=== PATIENT | female | born 1985 | race Caucasian/White ===

== ENCOUNTER 2020-07-10 20:23 | Emergency (ER) | payer BC, SELFPAY ==
--- NOTE | ~2020-07-10 | XR_ITS ---
XR hand LT min 3V, XR wrist LT min 3V 07/10/2020 21:25 (accession [id number]), 07/10/2020 21:23 (accession [id number]) INDICATION: Left wrist and hand pain PROCEDURE: 3 views left hand and 4 views left wrist COMPARISON: No prior studies for comparison. FINDINGS: Fracture, dislocation or subluxation is not identified. The soft tissues appear within norm al limits. No foreign bodies are identified. IMPRESSION: 1: NO ACUTE BONE OR JOINT ABNORMALITY IDENTIFIED. Reviewed, dictated and finalized at location A. IMPRESSION: 1: NO ACUTE BONE OR JOINT ABNORMALITY IDENTIFIED.
--- NOTE | ~2020-07-10 | XR_ITS ---
XR ankle LT min 3V, XR foot LT min 3V 07/10/2020 21:23 (accession [id number]), 07/10/2020 21:25 (accession [id number]) INDICATION: Left ankle and foot pain with swelling PROCEDURE: 4 views left ankle 4 views left foot COMPARISON: No prior studies for comparison. FINDINGS: Fracture, dislocation or subluxation is not identified. Prominent degenerative calcaneal en thesophyte. Ankle mortise is intact. Normal mineralization. The soft tissues appear within normal tadeo its. No foreign bodies are identified. IMPRESSION: 1: NO ACUTE BONE OR JOINT ABNORMALITY IDENTIFIED. Reviewed, dictated and finalized at location A. IMPRESSION: 1: NO ACUTE BONE OR JOINT ABNORMALITY IDENTIFIED.
[2020-07-10 20:35] VITALS: BP 124/74; PULSE 100; RESP 16; TEMP 36.9; O2SAT 100
[2020-07-10] MEDS: methylPREDNISolone ACETATE 40 MG/ML VIAL 80 MG IM (21:01)
--- NOTE | 2020-07-10 21:17 | ED.EXTPRO ---
HPI - Extremity Problem General Chief complaint: Extremity Problem,Nontraumatic Stated complaint: hand and foot pain on L side History of Present Illness HPI Narrative: This is a 34-year-old female presents with some left wrist and left ankle and foot pain with no known injuries. The wrist is mildly swollen and is having some pain that is radiating down into her hand and fingers, and into her thumb with some numbness and tingling in the thumb and her 1st 2 fingers. Has a strong brisk radial pulse on the left again no known injuries with mild swelling and pain level about a 5/10. Has a history of a gastric sleeve and has not been able to tolerate NSAIDs. Patient also complains of left foot and ankle pain with no known injury has good range of no motion with no swelling has a good brisk pedal pulse with no numbness or tingling. MD Complaint: extremity pain and extremity swelling Onset (ago): day(s) Pain Consistency: intermittent Location: left Severity scale (1-10): 5 Quality: burning Radiation: none Relieving factors: immobilization Exacerbating factors: range of motion Associated symptoms: denies other symptoms Related Data Home Medications Medication Instructions Recorded Confirmed buspirone 10 mg PO DAILY 07/10/20 07/10/20 escitalopram oxalate 20 mg PO DAILY 07/10/20 07/10/20 metformin 500 mg PO BID 07/10/20 07/10/20 omeprazole 20 mg PO DAILY 07/10/20 07/10/20 trazodone 100 mg PO HS 07/10/20 07/10/20 Allergies Allergy/AdvReac Type Severity Reaction Status Date / Time fluconazole [From Diflucan] Allergy Hives Verified 07/10/20 21:10 hydrocodone Allergy Hives Verified 07/10/20 21:10 sertraline [From Zoloft] Allergy Hives Verified 07/10/20 21:10 tuberculin, purified protein Allergy Hives Verified 07/10/20 21:10 deriva Review of Systems Review of Systems: All systems reviewed & are unremarkable except as noted in HPI and below PMFSH Past Medical History Medical History (Updated 07/10/20 @ 21:37 by Denis Daniels MD) Depression Diabetes mellitus Patient denies medical problems Exam Const: General: no acute distress and alert Orientation/consciousness: patient oriented x3 HENMT: Head: normal to inspection Eyes: Conjunctivae: conjunctivae normal Pupils: Equal, round and reactive pupils present Neck: Neck: normal visual inspection, no lymphadenopathy and no meningeal signs Chest: Chest palpation & inspection: normal inspection of the chest Resp: Effort & Inspection: normal respiratory effort Auscultation: clear to auscultation bilaterally Cardio: Rate: regular rate Rhythm: regular rhythm GI: GI Palp: Yes Soft to palpation Skin: General skin exam: normal color Rashes: no rashes Neuro: General: patient oriented x3, moves all extremities and no meningeal signs Extrem: Other: positive Phalen test on the left along with positive to tinnel test the left wrist. Psych: Appearance: grossly normal Mental Status: mental status grossly normal Course Course Emergency Course: Reassessment of patient after receiving a IM steroid injection pain mildly improved, according to patient she is unable to take NSAIDs secondary to status post gastric sleeve. Vital Signs Vital signs: Vital Signs Temperature 36.9 C 07/10/20 20:35 Pulse Rate 100 07/10/20 20:35 Respiratory Rate 16 07/10/20 20:35 Blood Pressure 124/74 07/10/20 20:35 Pulse Oximetry 100 07/10/20 20:35 Temperature 36.9 C 07/10/20 20:35 Pulse Rate 100 07/10/20 20:35 Respiratory Rate 16 07/10/20 20:35 Blood Pressure 124/74 07/10/20 20:35 Pulse Oximetry 100 07/10/20 20:35 Critical Care Time Critical Care Time Critical Care Time: No Discharge Plan Discharge Clinical Impression: Acute carpal tunnel syndrome of left wrist Left ankle sprain Qualifiers: Encounter type: initial encounter Involved ligament of ankle: unspecified ligament Qualified Code(s): S93.402A - Sprain of unspecified ligame
[2020-07-10 21:43] VITALS: RESP 16
== END 2020-07-10 21:45 | disposition home or self-care (01) ==
PROVIDERS: Emergency Provider Emergency Medicine
DX: G56.02 Carpal tunnel syndrome, left upper limb (principal); S93.402A Sprain of unspecified ligament of left ankle, initial encounter
CPT/HCPCS: 73110; 73130; 73610; 73630; 96372; 99283; 99284; J1030

== ENCOUNTER 2021-02-11 20:31 | Emergency (ER) | payer BC, SELFPAY ==
--- NOTE | 2021-02-11 20:48 | ED.ARRPALP ---
HPI - Arrhythmia/Palpitations General Chief Complaint: Arrhythmia/Palpitations Stated Complaint: surgery on 1st-heart racing,nausea Time Seen by Provider: 02/11/21 20:49 Source: patient Mode of arrival: ambulatory Limitations: no limitations History of Present Illness HPI narrative: 35-year-old woman 1 month status post gastric bypass comes in today complaining nausea and rapid heart rate while eating and lightheadedness while standing for last 2 days. Patient states she has also 2 or 3 episodes of watery stools. She denies black stools or blood in her stools, vomiting, fever, sweats, syncope, chest pain or abdominal pain. MD complaint: heart racing Onset (ago): day(s) (2) Duration: intermittent Severity: severe Associated symptoms: nausea Related Data Home Medications Medication Instructions Recorded Confirmed escitalopram oxalate 20 mg PO DAILY 07/10/20 02/11/21 trazodone 100 mg PO HS 07/10/20 02/11/21 bupropion HCl 150 mg PO DAILY 02/11/21 02/11/21 famotidine 20 mg PO DAILY 02/11/21 02/11/21 ropinirole 1 mg PO DAILY 02/11/21 02/11/21 Allergies Allergy/AdvReac Type Severity Reaction Status Date / Time fluconazole [From Diflucan] Allergy Hives Verified 02/11/21 21:24 hydrocodone Allergy Hives Verified 02/11/21 21:24 sertraline [From Zoloft] Allergy Hives Verified 02/11/21 21:24 tuberculin, purified protein Allergy Hives Verified 02/11/21 21:24 deriva Review of Systems Constitutional: Constitutional: Denies chills, Denies fever(s) and Denies weakness Eyes: Eyes: Denies change in vision and Denies photophobia ENT: Denies dysphagia, Denies nasal congestion and Denies sore throat Cardiovascular: Cardiovascular: Denies chest pain and Denies radiating jaw, neck or arm pain Respiratory: Respiratory: Denies cough and Denies dyspnea Gastrointestinal: Gastrointestinal: Denies abdominal pain, Denies diarrhea, Reports nausea and Denies vomiting Genitourinary: Genitourinary: Denies nocturia and Denies dysuria Musculoskeletal: Musculoskeletal: Denies arthralgias and Denies joint swelling Integumentary/Breasts: Skin/Breast: Denies pruritus, Denies erythema and Denies rash Neurologic: Denies vertigo, Reports dizziness, Denies syncope, Denies focal weakness and Denies numbness Hematologic/Lymphatic: Hematologic/Lymphatic: Denies easy bleeding and Denies easy bruising Allergic/Immunologic: Allergic/Immunologic: Denies lip swelling and Denies throat swelling [facility] Past Medical History Medical History (Updated 02/11/21 @ 23:28 by Chino Golden MD) Depression Diabetes mellitus Patient denies medical problems Surgical History Surgical History (Updated 02/11/21 @ 21:01 by Chino Golden MD) Gastric bypass status for obesity January 12, 2021 Social History Social History (Updated 02/11/21 @ 21:01 by Chino Golden MD) Smoking status: Never smoker Substance use: never Living arrangements: with family Gender identity (if verbalized by the patient): Female Exam Const: General: alert Nutritional Appearance: obese Orientation/consciousness: patient oriented x3 Limitations: no limitations Other: [id number] acute distress. HENMT: Head: normal to inspection Ears: external ears normal, TM's normal bilaterally and EAC's normal General nose exam: Normal nares present Mouth: Yes moist mucous membranes Throat: posterior oropharynx normal Eyes: Conjunctivae: conjunctivae normal Pupils: Equal, round and reactive pupils present EOM: EOMs intact bilaterally Resp: Effort & Inspection: normal respiratory effort and not labored Auscultation: clear to auscultation bilaterally, no rales, no rhonchi and no wheezes Cardio: Rate: tachycardic Rhythm: regular rhythm Heart sounds: no murmurs GI: GI Palp: Yes Soft to palpation, Yes Tenderness to palpation present (GI) ( Mild diffuse) and No Guarding due to palpation present (GI) Auscultation: normal bowel sounds Urinary Catheter:
[2021-02-11 20:50] VITALS: BP 118/86; PULSE 113; RESP 20; TEMP 36.5; O2SAT 100
--- NOTE | 2021-02-11 20:54 | ECG_ITS ---
Measurements Intervals [place] Rate: 85 P: 34 [place]: 168 QRS: 9 QRSD: 86 T: 6 QT: 356 QTc: 425 Interpretive Statements SINUS RHYTHM BORDERLINE T WAVE ABNORMALITY- ANT/INF LEADS BORDERLINE ECG Electronically Signed On 02-12-2021 7:20:44 CDT by Brendan Stapleton D.O.
[2021-02-11 21:13] VITALS: BP 108/74; PULSE 88
[2021-02-11 21:14] VITALS: BP 114/82; PULSE 111
[2021-02-11 21:14] LABS: Add Urine Microscopic? YES; Appearance Urine Clear (Clear); Basophils Absolute Auto 0.07 K/mm3 (0.00-0.10); Basophils Percent Auto 1.2 % (0.0-1.0); Bilirubin Urine Negative (Negative); Blood Urine Negative (Negative); Color Urine Yellow (Yellow); Eosinophils Absolute Auto 0.13 K/mm3 (0.02-0.50); Eosinophils Percent Auto 2.2 % (1.0-6.0); Glucose Urine UA Negative (Negative); Hematocrit 35.3 % (35.0-49.0); Hemoglobin 11.2 g/dL (12.0-15.0); Immature Granulocyte Absolute 0.02 K/mm3 (0.00-0.00); Immature Granulocyte Percent A 0.3 % (0.0-0.0); Ketones Urine 1+ (Negative); Leukocyte Esterase Ur Negative (Negative); Lymphocytes Absolute Auto 2.66 K/mm3 (1.10-4.50); Mean Corpuscular HGB Conc 31.7 g/dL (32.0-36.0); Mean Corpuscular Volume 91.5 fL (78.0-102.0); Mean Platelet Volume 11.1 fl (9.2-11.8); Monocytes Absolute Auto 0.63 K/mm3 (0.10-0.90); Monocytes Percent Auto 10.4 % (2.0-11.0); Neutrophils Absolute Auto 2.5 K/mm3 (1.7-7.2); Neutrophils Percent Auto 41.9 % (50.0-70.0); Nitrate Urine Negative (Negative); Platelet Count Result 238 K/mm3 (150-420); Protein Urine Negative (Negative); Red Blood Count 3.86 M/mm3 (4.20-5.40); Red Cell Distribution Width 15.7 % (11.6-14.4); Specific Grav Ur 1.025 (1.010-1.020); pH Urine 6.5 (5.0-8.0)
[2021-02-11] MEDS: SODIUM CHLORIDE 0.9% IV 1,000 ML 999 ML IV CONT (21:15)
[2021-02-11 21:16] VITALS: PULSE 112
[2021-02-11 21:21] LABS: RBC Urine 0-2 /hpf (0-2); Squamous Epithelial Cell Urine Many /hpf (Few); WBC Urine 0-3 /hpf (0-3)
[2021-02-11 21:22] LABS: Bacteria Urine Trace /hpf; Mucus Urine Few /lpf
[2021-02-11 21:33] LABS: Alanine Aminotransferase 49 U/L (14-59); Albumin Level 3.2 g/dL (3.4-5.0); Alkaline Phosphatase 89 U/L (46-116); Anion Gap 8 mmol/L (8-16); Aspartate Amino Transferase 40 U/L (15-37); Bilirubin,Total 0.3 mg/dL (0.00-1.00); Blood Urea Nitrogen 11 mg/dL (7-18); Calcium 8.3 mg/dL (8.5-10.1); Carbon Dioxide 29 mmol/L (21-32); Chloride 105 mmol/L (98-108); Estimated CRCL calculation 98 ml/min; Estimated Glomerular Filt Rate > 60; Glucose 118 mg/dL (70-99); Lipase 316 U/L (73-393); Magnesium 1.8 mg/dL (1.8-2.4); Osmolality Calculated 294 mOsm/kg (285-295); Phosphorus 2.3 mg/dL (2.6-4.7); Potassium 3.1 mmol/L (3.5-5.1); Sodium 142 mmol/L (136-145)
[2021-02-11] MEDS: THIAMINE HCL INJ 100 MG, FOLIC ACID INJ 1 MG, MULTIVITAMINS-12 INJ VIAL 1 5 ML, MULTIVI... 500 MG IV CONT (22:30)
[2021-02-11] MEDS: ONDANSETRON INJ 4 MG/2 ML VIAL IV PUSH (22:34)
[2021-02-11 22:36] VITALS: BP 98/65; PULSE 65; RESP 20; O2SAT 100
[2021-02-11] MEDS: POTASSIUM CHLORIDE 20 MEQ TABLET PO (23:59)
[2021-02-12 00:04] VITALS: BP 99/71; PULSE 73; RESP 20; TEMP 36.7; O2SAT 100
== END 2021-02-12 00:16 | disposition home or self-care (01) ==
PROVIDERS: Emergency Provider Emergency Medicine; PCP Family Medicine
DX: E87.6 Hypokalemia (principal); R00.0 Tachycardia, unspecified; E86.0 Dehydration
CPT/HCPCS: 36415; 80053; 81001; 83690; 83735; 84100; 85025; 93005; 96361; 96365; 96366; 96375; 99283; 99284; A9270; J2405; J3411; J3475; J7030; J7121

== ENCOUNTER 2022-01-27 15:55 | Emergency (ER) | payer BC, SELFPAY ==
[2022-01-27 16:00] VITALS: BP 110/73; PULSE 79; RESP 16; TEMP 36.2; O2SAT 99
--- NOTE | 2022-01-27 16:19 | ED.UPPEXIN ---
HPI - Extremity Injury (Upper) General Chief Complaint: Extremity Injury, Upper Stated Complaint: bites, swelling, hot to touch Time Seen by Provider: 01/27/22 16:29 Source: patient Mode of arrival: ambulatory History of Present Illness HPI narrative: 36-year-old female with seasonal allergies presents to the ER with -- bilateral elbow skin rash which is erythematous/ swollen/painful. intermittent itching. Does not recollect having had a bite. Came on in the past few hours. No rash elsewhere. Nose throat swelling/ tongue swelling, shortness of breath, abdominal pain. MD complaint: injury to: left, right and elbow Other Extremity Injury: Right: elbow Other injuries: none Place: home Severity: moderate Exacerbating factors: none Associated symptoms: denies other symptoms Related Data Home Medications Medication Instructions Recorded Confirmed escitalopram oxalate 20 mg PO DAILY 07/10/20 02/11/21 trazodone 100 mg PO HS 07/10/20 02/11/21 bupropion HCl 150 mg PO DAILY 02/11/21 02/11/21 famotidine 20 mg PO DAILY 02/11/21 02/11/21 ropinirole 1 mg PO DAILY 02/11/21 02/11/21 Allergies Allergy/AdvReac Type Severity Reaction Status Date / Time fluconazole [From Diflucan] Allergy Hives Verified 01/27/22 16:08 hydrocodone Allergy Hives Verified 01/27/22 16:08 sertraline [From Zoloft] Allergy Hives Verified 01/27/22 16:08 tuberculin, purified protein Allergy Hives Verified 01/27/22 16:08 deriva Review of Systems Review of Systems: All systems reviewed & are unremarkable except as noted in HPI and below Constitutional: Constitutional: Reports as per HPI and Reports no additional constitutional complaints Eyes: Eyes: Reports as per HPI and Reports no additional eye complaints ENT: Reports system reviewed and no additional complaints, except as documented Cardiovascular: Cardiovascular: Reports as per HPI and Reports no additional cardiovascular complaints Respiratory: Respiratory: Reports as per HPI and Reports no additional respiratory complaints Gastrointestinal: Gastrointestinal: Reports as per HPI and Reports no additional gastrointestinal complaints Genitourinary: Genitourinary: Reports no additional female genitourinary complaints and Reports as per HPI Musculoskeletal: Musculoskeletal: Reports no additional musculoskeletal complaints and Reports as per HPI Integumentary/Breasts: Comments: Bilateral elbow skin rash with itching Neurologic: Reports system reviewed and no additional complaints, except as documented and Reports as per HPI Psychiatric: Psychiatric: Reports no additional psychiatric complaints and Reports as per HPI Endocrine: Endocrine: Reports no additional endocrine complaints and Reports as per HPI Hematologic/Lymphatic: Hematologic/Lymphatic: Reports no additional hematologic/lymphatic complaints and Reports as per HPI Allergic/Immunologic: Allergic/Immunologic: Reports no additional allergic/immunologic complaints and Reports as per HPI [facility] Past Medical History Medical History Depression Diabetes mellitus Patient denies medical problems Surgical History Surgical History Gastric bypass status for obesity January 12, 2021 Social History Social History Smoking status: Never smoker Substance use: never Gender identity (if verbalized by the patient): Female Exam Const: General: no acute distress and alert Orientation/consciousness: patient oriented x3 HENMT: Head: normal to inspection Eyes: Conjunctivae: conjunctivae normal Pupils: Equal, round and reactive pupils present Neck: Neck: normal visual inspection and no lymphadenopathy Chest: Chest palpation & inspection: normal inspection of the chest Resp: Effort & Inspection: normal respiratory effort Auscultation: clear to auscultation bilat
[2022-01-27] MEDS: methylPREDNISolone SOD SUCC 125 MG VIAL IM (16:36)
[2022-01-27] MEDS: diphenhydrAMINE HCl CAP 25 MG CAPSULE PO (16:36)
[2022-01-27 17:22] VITALS: BP 108/59; PULSE 67; RESP 16; TEMP 36.7; O2SAT 99
--- NOTE | 2022-01-27 17:24 | ED_ITS ---
HPI - Extremity Injury (Upper) General Chief Complaint: Extremity Injury, Upper Stated Complaint: bites, swelling, hot to touch Time Seen by Provider: 01/27/22 16:29 Source: patient Mode of arrival: ambulatory History of Present Illness Place: home Exacerbating factors: none Associated symptoms: denies other symptoms Related Data Home Medications Medication Instructions Recorded Confirmed escitalopram oxalate 20 mg PO DAILY 07/10/20 02/11/21 trazodone 100 mg PO HS 07/10/20 02/11/21 bupropion HCl 150 mg PO DAILY 02/11/21 02/11/21 famotidine 20 mg PO DAILY 02/11/21 02/11/21 ropinirole 1 mg PO DAILY 02/11/21 02/11/21 Allergies Allergy/AdvReac Type Severity Reaction Status Date / Time fluconazole [From Diflucan] Allergy Hives Verified 01/27/22 16:08 hydrocodone Allergy Hives Verified 01/27/22 16:08 sertraline [From Zoloft] Allergy Hives Verified 01/27/22 16:08 tuberculin, purified protein Allergy Hives Verified 01/27/22 16:08 deriva [facility] Past Medical History Medical History Depression Diabetes mellitus Patient denies medical problems Surgical History Surgical History Gastric bypass status for obesity January 12, 2021 Social History Social History Smoking status: Never smoker Substance use: never Gender identity (if verbalized by the patient): Female Course Vital Signs Vital signs: Vital Signs Temperature 36.2 C L 01/27/22 16:00 Pulse Rate 79 01/27/22 16:00 Respiratory Rate 16 01/27/22 16:00 Blood Pressure 110/73 01/27/22 16:00 Pulse Oximetry 99 01/27/22 16:00 Temperature 36.7 C 01/27/22 17:22 Pulse Rate 67 01/27/22 17:22 Respiratory Rate 16 01/27/22 17:22 Blood Pressure 108/59 L 01/27/22 17:22 Pulse Oximetry 99 01/27/22 17:22 Discharge Plan Discharge Clinical Impression: Contact dermatitis Qualifiers: Contact dermatitis type: unspecified Contact dermatitis trigger: unspecified trigger Qualified Code(s): L25.9 - Unspecified contact dermatitis, unspecified cause Patient Disposition: Home, Self-Care Condition: Stable Instructions: Antibiotic Form, Contact Dermatitis (ED) Patient Language: Turkmen Prescriptions: New methylprednisolone [Methylpred DP] 4 mg tablets,dose pack 4 mg PO DAILY Qty: 21 RF: 0 diphenhydramine HCl [Benadryl] 25 mg capsule 25 mg PO TID PRN (Reason: allergy symptoms) Qty: 10 RF: 0 No Action trazodone 50 mg tablet 100 mg PO HS RF: 0 escitalopram oxalate 20 mg tablet 20 mg PO DAILY RF: 0 ropinirole 1 mg tablet 1 mg PO DAILY RF: 0 famotidine 20 mg tablet 20 mg PO DAILY RF: 0 bupropion HCl 150 mg tablet extended release 24 hr 150 mg PO DAILY RF: 0 potassium chloride 20 mEq tablet extended release 20 meq PO DAILY Qty: 10 RF: 0 Follow-up/Referrals: Isidra,Judd Vincent MD [Primary Care Provider] - Time of Disposition: 16:43
== END 2022-01-27 17:25 | disposition home or self-care (01) ==
PROVIDERS: Emergency Provider Internal Medicine Critical Care Medicine; PCP Family Medicine
DX: L25.9 Unspecified contact dermatitis, unspecified cause (principal)
CPT/HCPCS: 96372; 99283; A9270; J2930

== ENCOUNTER 2022-05-25 19:59 | Emergency (ER) | payer BC, SELFPAY ==
[2022-05-25] VITALS (8 sets, daily range): BP systolic 93–142; BP diastolic 56–81; PULSE 84–102; RESP 14–23; TEMP 37.5; O2SAT 97–99
--- NOTE | ~2022-05-25 | XR_ITS ---
EXAMINATION: XR chest 1V portable 05/25/2022 21:02 INDICATION: Shortness of breath with weakness PROCEDURE: AP portable chest COMPARISON: No prior studies for comparison. FINDINGS: The lungs are clear. The cardiomediastinal silhouette is within normal limits. There are no pleural effusions. There is no pneumothorax suspected. IMPRESSION: 1: NO ACUTE CARDIOPULMONARY DISEASE. Reviewed, dictated and finalized at location A.
--- NOTE | 2022-05-25 20:42 | ECG_ITS ---
Measurements Intervals [place] Rate: 96 P: 4 [place]: 167 QRS: 3 QRSD: 89 T: 7 QT: 346 QTc: 438 Interpretive Statements SINUS RHYTHM BORDERLINE T WAVE ABNORMALITY- ANT/INF LEADS BORDERLINE ECG Electronically Signed On 05-25-2022 21:30:41 CDT by Brendan Stapleton D.O.
[2022-05-25 21:03] LABS: Hematocrit 36.9 % (35.0-49.0); Hemoglobin 12.1 g/dL (12.0-15.0); Mean Corpuscular HGB Conc 32.8 g/dL (32.0-36.0); Mean Corpuscular Hemoglobin 31.2 pg (27.0-31.0); Mean Corpuscular Volume 95.1 fL (78.0-102.0); Mean Platelet Volume 10.6 fl (9.2-11.8); Platelet Count Result 184 K/mm3 (150-420); Red Blood Count 3.88 M/mm3 (4.20-5.40); Red Cell Distribution Width 12.2 % (11.6-14.4); White Blood Count 3.5 K/mm3 (4.8-10.8)
[2022-05-25 21:07] LABS: Add Urine Microscopic? YES; Appearance Urine Slightly Cloudy (Clear); Bilirubin Urine Negative (Negative); Blood Urine Negative (Negative); Color Urine Yellow (Yellow); Glucose Urine UA Negative (Negative); Ketones Urine Negative (Negative); Leukocyte Esterase Ur 1+ LEU/UL (Negative); Nitrate Urine Negative (Negative); Protein Urine Negative (Negative); Specific Grav Ur 1.025 (1.010-1.020)
[2022-05-25] MEDS: NITROGLYCERIN SL 0.4 MG TABLET SUBLINGUAL (21:09)
[2022-05-25] MEDS: ASPIRIN 81 MG CHEWABLE TABLET 324 MG PO (21:10)
[2022-05-25 21:13] LABS: Amphetamine Screen Urine Negative (Negative); Barbiturate Screen Urine Negative (Negative); Benzodiazepines Screen Urine Negative (Negative); Cannabinoid Screen Urine Negative (Negative); Cocaine Screen Urine Negative (Negative); Methadone Screen Urine Negative (Negative); Opiate Screen Urine Negative (Negative); Phencyclidine Screen Urine Negative (Negative)
[2022-05-25 21:16] LABS: Amorphous Sediment Urine Few; Bacteria Urine 1+ /hpf; RBC Urine 0-2 /hpf (0-2); Squamous Epithelial Cell Urine Moderate /hpf (Few)
[2022-05-25 21:18] LABS: Partial Thromboplastin Time 27.3 SEC (23.90-30.70)
[2022-05-25 21:22] LABS: Lactic Acid Reflex 0.7 mmol/L (0.4-2.0)
[2022-05-25 21:24] LABS: Neutrophils Percent Manual 71 % (46-73); Total Cells Counted 100
[2022-05-25 21:25] LABS: Band Neutrophils Percent 0 % (0-6); Basophils Absolute Manual 0.03 K/mm3 (0-0.1); Basophils Percent Manual 1 % (0-1); Eosinophils Absolute Manual 0.07 K/mm3 (0.02-0.5); Eosinophils Percent Manual 2 % (1-6); Lymphocytes Absolute Manual 0.45 K/mm3 (1.1-4.5); Lymphocytes Percent Manual 13 % (18-44); Monocytes Absolute Manual 0.45 K/mm3 (0.1-0.90); Monocytes Percent Manual 13 % (3-9); Neutrophils Absolute Manual 2.48 K/mm3 (1.7-7.2); Platelet Estimate Adequate (Adequate)
[2022-05-25 21:31] LABS: Alanine Aminotransferase 50 U/L (14-59); Albumin Level 3.3 g/dL (3.4-5.0); Alkaline Phosphatase 100 U/L (46-116); Anion Gap 8 mmol/L (8-16); Aspartate Amino Transferase 37 U/L (15-37); Bilirubin,Total 0.3 mg/dL (0.00-1.00); Blood Urea Nitrogen 9 mg/dL (7-18); Calcium 8.4 mg/dL (8.5-10.1); Carbon Dioxide 24 mmol/L (21-32); Chloride 105 mmol/L (98-108); Estimated CRCL calculation 105 ml/min; Estimated Glomerular Filt Rate > 60; Glucose 90 mg/dL (70-99); NT Pro B Type Natriuretic Pept 57 pg/mL (0-125); Osmolality Calculated 282 mOsm/kg (285-295); Potassium 3.5 mmol/L (3.5-5.1); Sodium 137 mmol/L (136-145); Total Protein 6.3 g/dL (6.4-8.2)
[2022-05-25 21:32] LABS: Ethanol < 3 mg/dL (0-6); Troponin I < 4.0 ng/L (0.00-60.4)
--- NOTE | 2022-05-25 22:02 | PC.NURSE ---
pt states that she can not take NSAIDS due to her gastric bypass surgery
--- NOTE | 2022-05-25 22:12 | PC.NURSE ---
do not need to obtain ABGs labs per Md Aranda
--- NOTE | 2022-05-25 22:12 | ED.CHESTPAIN ---
HPI - Chest Pain General Chief Complaint: Chest Pain Stated Complaint: fever,headache,heart palpatations Time Seen by Provider: 05/25/22 20:03 Source: patient and RN notes reviewed Mode of arrival: ambulatory Limitations: no limitations History of Present Illness MD complaint: chest pain Onset (ago): day(s) (1) Timing of current episode: constant Onset: during rest Pain location: left chest Severity: mild Pain scale (0-10): 5 Quality: aching and dull Relieving factors: nothing Exacerbating factors: exertion Associated symptoms: palpitations Treatment prior to arrival: none Related Data Home Medications Medication Instructions Recorded Confirmed escitalopram oxalate 20 mg tablet 20 mg PO DAILY 07/10/20 05/25/22 trazodone 50 mg tablet 100 mg PO HS 07/10/20 05/25/22 bupropion HCl 150 mg 24 hr tablet, 150 mg PO DAILY 02/11/21 05/25/22 extended release ropinirole 1 mg tablet 1 mg PO DAILY 02/11/21 05/25/22 propranolol 10 mg tablet 1 tablet PO DAILY 05/25/22 05/25/22 Allergies Allergy/AdvReac Type Severity Reaction Status Date / Time fluconazole [From Diflucan] Allergy Hives Verified 05/25/22 20:30 hydrocodone Allergy Hives Verified 05/25/22 20:30 sertraline [From Zoloft] Allergy Hives Verified 05/25/22 20:30 tuberculin, purified protein Allergy Hives Verified 05/25/22 20:30 deriva iodine AdvReac Hives Verified 05/25/22 20:44 NSAIDS (Non-Steroidal AdvReac Other Verified 05/25/22 22:00 Anti-Inflamma Review of Systems Review of Systems: All systems reviewed & are unremarkable except as noted in HPI and below Constitutional: Constitutional: Reports no additional constitutional complaints Eyes: Eyes: Reports no additional eye complaints ENT: Reports system reviewed and no additional complaints, except as documented Cardiovascular: Cardiovascular: Reports chest pain Respiratory: Respiratory: Reports no additional respiratory complaints Gastrointestinal: Gastrointestinal: Reports no additional gastrointestinal complaints Genitourinary: Genitourinary: Reports no additional female genitourinary complaints Musculoskeletal: Musculoskeletal: Reports no additional musculoskeletal complaints Integumentary/Breasts: Skin/Breast: Reports system reviewed and no additional complaints, except as docu Neurologic: Reports system reviewed and no additional complaints, except as documented Psychiatric: Psychiatric: Reports no additional psychiatric complaints Endocrine: Endocrine: Reports no additional endocrine complaints Hematologic/Lymphatic: Hematologic/Lymphatic: Reports no additional hematologic/lymphatic complaints Allergic/Immunologic: Allergic/Immunologic: Reports no additional allergic/immunologic complaints PMFSH Past Medical History Medical History Atypical chest pain COVID-19 Depression Diabetes mellitus Patient denies medical problems Viral syndrome Surgical History Surgical History Gastric bypass status for obesity January 12, 2021 Social History Social History Smoking status: Never smoker Substance use: never Gender identity (if verbalized by the patient): Female Exam Const: General: healthy appearing and no acute distress Nutritional Appearance: well nourished Orientation/consciousness: patient oriented x3 Limitations: no limitations HENMT: Head: normal to inspection Ears: external ears normal, TM's normal bilaterally and EAC's normal General nose exam: Normal external nose present and Normal nares present Face and sinus: normal facial exam and sinuses nontender Mouth: Yes Normal oral and palatal mucosa present and Yes moist mucous membranes Teeth and gingiva: dentition normal Throat: posterior oropharynx normal Eyes: Conjunctivae: conjunctivae normal Pupils: Equal, round and reactive pupils present
[2022-05-25] MEDS: cefTRIAXone 1 GM, LIDOCAINE HCL 1% LOCAL INJ 2.1 ML IM (22:33)
[2022-05-25] MEDS: KETOROLAC (*BKC) 60 MG/2 ML VIAL IM (22:33)
[2022-05-25] MEDS: SODIUM CHLORIDE 0.9% IV 1,000 ML 999 ML IV CONT (23:15)
[2022-05-26 00:01] VITALS: BP 107/66; PULSE 98; RESP 16; O2SAT 97
[2022-05-26 00:31] VITALS: BP 103/61; PULSE 98; RESP 17; O2SAT 100
[2022-05-26 01:17] VITALS: BP 102/57; PULSE 103; RESP 18; TEMP 36.4; O2SAT 100
== END 2022-05-26 01:19 | disposition home or self-care (01) ==
PROVIDERS: Emergency Provider Emergency Medicine; PCP Family Medicine
DX: R07.89 Other chest pain (principal); U07.1 COVID-19; B34.9 Viral infection, unspecified
CPT/HCPCS: 36415; 71045; 80053; 80307; 81001; 83605; 83880; 84484; 85025; 85610; 85730; 87086; 87088; 93005; 96360; 96372; 99284; A9270; J0696; J1885; J7030

== ENCOUNTER 2022-10-11 13:22 | Emergency (ER) | payer OTHER, BC, SELFPAY ==
--- NOTE | ~2022-10-11 | US_ITS ---
EXAMINATION: US pelvic complete w TV DATE: 10/11/2022 15:26 INDICATION: Heavy bleeding. Cramping. Comparison:No prior studies for comparison. TECHNIQUE: Multiple transabdominal and endovaginal sonographic images of the pelvis performed. FINDINGS: The uterus measures 8.2 x 5.3 x 4.4 cm. The endometrial complex measures 6 mm. There are mu ltiple uterine fibroids. The right ovary measures 2.5 x 2.3 x 2 cm and the left ovary measures 2.2 x 1.3 x 2.4 cm. There are small follicles in each ovary. Normal doppler signal in both ovaries. There is no free fluid in the pelvis. There are no abnormal masses seen on either side. IMPRESSION: 1. Multiple uterine fibroids, largest measuring 2.4 cm. Reviewed, dictated and finalized at location A. [facility]
[2022-10-11 14:00] VITALS: BP 129/76; PULSE 63; RESP 16; TEMP 37.1; O2SAT 99
[2022-10-11 14:23] LABS: Glucose Point of Care 85 mg/dl (65-105)
--- NOTE | 2022-10-11 15:00 | PC.NURSE ---
PT IN ULTRASOUND AT THIS TIME
[2022-10-11 15:18] LABS: Partial Thromboplastin Time 27.4 SEC (23.90-30.70); Prothrombin Time 11.3 Seconds (9.50-12.10)
[2022-10-11 15:19] LABS: SPREG INTERNAL CONTROL Positive; Serum Qual hCG Negative
[2022-10-11 15:25] LABS: Lactic Acid Reflex 0.7 mmol/L (0.4-2.0)
[2022-10-11] MEDS: SODIUM CHLORIDE 0.9% IV 1,000 ML 999 ML IV CONT (15:30)
[2022-10-11] MEDS: ONDANSETRON INJ 4 MG/2 ML VIAL IV PUSH (15:34)
[2022-10-11] MEDS: MORPHINE SULFATE (*CRX) 2 MG/ML INJ IV PUSH (15:35)
[2022-10-11] MEDS: PANTOPRAZOLE SODIUM IV 40 MG VIAL IV PUSH (15:35)
--- NOTE | 2022-10-11 16:06 | PC.NURSE ---
PT REPORTS CHEST HEAVINESS AND PRESSURE INTO BACK, REPORTS SHE FELT THIS WAY THE LAST TIME SHE HAD MORPHINE. O2 PLACED ON PT AT 2L, SX PASS QUICKLY. NAD NOTED. LIGHTS ARE OFF REQUESTED. VSS PER MONITOR. WILL CONTINUE TO MONITOR.
[2022-10-11 16:07] VITALS: BP 122/84; PULSE 50; RESP 12; O2SAT 100
--- NOTE | 2022-10-11 16:42 | PC.NURSE ---
PT IS RESTING ON STRETCHER IN EXAM ROOM AT THIS TIME WITH LIGHTS OFF. NAD NOTED. PT IS AWAITING ERP DECISION. NAD NOTED. IVF COMPLETED WITHOUT DIFFICULTY. WILL CONTINUE TO MONITOR.
[2022-10-11 16:44] LABS: Basophils Absolute Auto 0.07 K/mm3 (0.00-0.10); Basophils Percent Auto 1.1 % (0.0-1.0); Eosinophils Absolute Auto 0.06 K/mm3 (0.02-0.50); Eosinophils Percent Auto 0.9 % (1.0-6.0); Hemoglobin 12.2 g/dL (12.0-15.0); Immature Granulocyte Absolute 0.02 K/mm3 (0.00-0.00); Immature Granulocyte Percent A 0.3 % (0.0-0.0); Lymphocytes Absolute Auto 2.86 K/mm3 (1.10-4.50); Mean Corpuscular Hemoglobin 31.3 pg (27.0-31.0); Mean Corpuscular Volume 94.9 fL (78.0-102.0); Mean Platelet Volume 11.1 fl (9.2-11.8); Monocytes Absolute Auto 0.42 K/mm3 (0.10-0.90); Monocytes Percent Auto 6.6 % (2.0-11.0); Neutrophils Absolute Auto 2.9 K/mm3 (1.7-7.2); Neutrophils Percent Auto 46.1 % (50.0-70.0); Platelet Count Result 240 K/mm3 (150-420); Red Cell Distribution Width 12.1 % (11.6-14.4); White Blood Count 6.4 K/mm3 (4.8-10.8)
[2022-10-11 16:54] LABS: Alanine Aminotransferase 27 U/L (14-59); Albumin Level 3.3 g/dL (3.4-5.0); Alkaline Phosphatase 82 U/L (46-116); Anion Gap 9 mmol/L (8-16); Aspartate Amino Transferase 14 U/L (15-37); Bilirubin,Total 0.2 mg/dL (0.00-1.00); Blood Urea Nitrogen 14 mg/dL (7-18); Calcium 8.5 mg/dL (8.5-10.1); Carbon Dioxide 25 mmol/L (21-32); Chloride 106 mmol/L (98-108); Estimated CRCL calculation 90 ml/min; Estimated Glomerular Filt Rate > 60; Glucose 99 mg/dL (70-99); Osmolality Calculated 290 mOsm/kg (285-295); Potassium 3.7 mmol/L (3.5-5.1); Sodium 140 mmol/L (136-145); Total Protein 6.3 g/dL (6.4-8.2)
[2022-10-11 17:07] VITALS: BP 116/66; PULSE 53; RESP 16; O2SAT 100
[2022-10-11 18:00] VITALS: BP 109/72; PULSE 54; RESP 14; O2SAT 99
--- NOTE | 2022-10-11 18:17 | ED.ABDPAIN ---
HPI - Abdominal Pain General Chief Complaint: Vaginal Bleeding Stated Complaint: Doctor referred female issues Time Seen by Provider: 10/11/22 13:23 Source: patient and RN notes reviewed Mode of arrival: ambulatory Limitations: no limitations History of Present Illness MD elicited complaint: abdominal pain Onset (ago): week(s) Pain Consistency: constant Severity: mild Pain scale (0-10): 3 Quality: cramping and aching Radiation: none Migration to: no migration Exacerbating factors: nothing Relieving factors: medication Associated symptoms: other (vaginal bleeding) Treatments prior to arrival: NSAIDs Related Data Patient : No Home Medications Medication Instructions Recorded Confirmed escitalopram oxalate 20 mg tablet 20 mg PO DAILY 07/10/20 10/11/22 trazodone 50 mg tablet 100 mg PO HS 07/10/20 10/11/22 ropinirole 1 mg tablet 1 mg PO DAILY 02/11/21 10/11/22 buspirone 15 mg tablet 15 mg PO BID 10/11/22 10/11/22 estradiol 0.01% (0.1 mg/gram) 1 applic vaginal DAILY 10/11/22 10/11/22 vaginal cream guanfacine 2 mg tablet,extended 2 mg PO DAILY 10/11/22 10/11/22 release 24 hr ketoconazole 2 % topical cream 1 applic topical DAILY 10/11/22 10/11/22 norethindrone acetate 1.5 1 tablet PO DAILY 10/11/22 10/11/22 mg-ethinyl estradiol 30 mcg tablet (Shruti) propranolol 10 mg tablet 10 mg PO DAILY 10/11/22 10/11/22 Allergies Allergy/AdvReac Type Severity Reaction Status Date / Time fluconazole [From Diflucan] Allergy Hives Verified 10/11/22 14:14 hydrocodone Allergy Hives Verified 10/11/22 14:14 sertraline [From Zoloft] Allergy Hives Verified 10/11/22 14:14 tuberculin, purified protein Allergy Hives Verified 10/11/22 14:14 deriva iodine AdvReac Hives Verified 10/11/22 14:14 NSAIDS (Non-Steroidal AdvReac Other Verified 10/11/22 14:14 Anti-Inflamma Review of Systems Review of Systems: All systems reviewed & are unremarkable except as noted in HPI and below Constitutional: Constitutional: Reports no additional constitutional complaints Eyes: Eyes: Reports no additional eye complaints ENT: Reports system reviewed and no additional complaints, except as documented Cardiovascular: Cardiovascular: Reports no additional cardiovascular complaints Respiratory: Respiratory: Reports no additional respiratory complaints Gastrointestinal: Gastrointestinal: Reports no additional gastrointestinal complaints Genitourinary: Genitourinary: Reports no additional female genitourinary complaints and Reports abnormal vaginal bleeding Musculoskeletal: Musculoskeletal: Reports no additional musculoskeletal complaints Integumentary/Breasts: Skin/Breast: Reports system reviewed and no additional complaints, except as docu Neurologic: Reports system reviewed and no additional complaints, except as documented Psychiatric: Psychiatric: Reports no additional psychiatric complaints Endocrine: Endocrine: Reports no additional endocrine complaints Hematologic/Lymphatic: Hematologic/Lymphatic: Reports no additional hematologic/lymphatic complaints Allergic/Immunologic: Allergic/Immunologic: Reports no additional allergic/immunologic complaints PMFSH Past Medical History Medical History Atypical chest pain COVID-19 Depression Diabetes mellitus Patient denies medical problems Uterine fibroid Viral syndrome Surgical History Surgical History Gastric bypass status for obesity January 12, 2021 Social History Social History Smoking status: Never smoker Substance use: never Gender identity (if verbalized by the patient): Female Exam Const: General: no acute distress and well nourished Nutritional Appearance: well nourished Orientation/consciousness: patient oriented x3 Limitations: no limitations HENMT: Head: normal to inspection
[2022-10-11 18:39] VITALS: BP 105/90; PULSE 60; RESP 14; TEMP 36.2; O2SAT 100
--- NOTE | 2022-10-11 18:41 | PC.NURSE ---
PT IS SLEEPING UPON DC. FAMILY EN ROUTE TO TRANSPORT PT. PT IS AWAITING ERP TO REVIEW TESTING.
== END 2022-10-11 18:50 | disposition home or self-care (01) ==
PROVIDERS: Emergency Provider Emergency Medicine; PCP Family Medicine
DX: N93.8 Other specified abnormal uterine and vaginal bleeding (principal); D25.9 Leiomyoma of uterus, unspecified
CPT/HCPCS: 36415; 76830; 76856; 80053; 82948; 83605; 84703; 85025; 85610; 85730; 96361; 96374; 96375; 99284; C9113; J2270; J2405; J7030

== ENCOUNTER 2023-01-25 19:33 | Emergency (ER) | payer OTHER, SELFPAY ==
[2023-01-25 19:38] VITALS: BP 134/88; PULSE 90; RESP 20; TEMP 36.7; O2SAT 99
--- NOTE | 2023-01-25 19:41 | ED.ARRPALP ---
HPI - Arrhythmia/Palpitations General Chief Complaint: Unspecified Stated Complaint: palpitations Source: patient and RN notes reviewed Mode of arrival: ambulatory Limitations: no limitations History of Present Illness HPI narrative: Patient states she has been having palpitations and feels like her heart racing for the last 4 days. She has been having medication adjustments from her doctor regarding her antidepressants. She feels like something is wrong she also feels like she might be dehydrated because she is having darker yellow urine and she is not going as often. She denies any chest pain or shortness of breath. She denies any nausea vomiting, fever chills. MD complaint: heart racing Onset (ago): day(s) (4) Duration: intermittent Severity: moderate Context: occurred during rest Associated symptoms: denies other symptoms Related Data Home Medications Medication Instructions Recorded Confirmed escitalopram oxalate 20 mg tablet 20 mg PO DAILY 07/10/20 10/11/22 trazodone 50 mg tablet 100 mg PO HS 07/10/20 10/11/22 ropinirole 1 mg tablet 1 mg PO DAILY 02/11/21 10/11/22 buspirone 15 mg tablet 15 mg PO BID 10/11/22 10/11/22 estradiol 0.01% (0.1 mg/gram) 1 applic vaginal DAILY 10/11/22 10/11/22 vaginal cream guanfacine 2 mg tablet,extended 2 mg PO DAILY 10/11/22 10/11/22 release 24 hr ketoconazole 2 % topical cream 1 applic topical DAILY 10/11/22 10/11/22 norethindrone acetate 1.5 1 tablet PO DAILY 10/11/22 10/11/22 mg-ethinyl estradiol 30 mcg tablet (Shruti) propranolol 10 mg tablet 10 mg PO DAILY 10/11/22 10/11/22 Allergies Allergy/AdvReac Type Severity Reaction Status Date / Time fluconazole [From Diflucan] Allergy Hives Verified 10/11/22 14:14 hydrocodone Allergy Hives Verified 10/11/22 14:14 sertraline [From Zoloft] Allergy Hives Verified 10/11/22 14:14 tuberculin, purified protein Allergy Hives Verified 10/11/22 14:14 deriva iodine AdvReac Hives Verified 10/11/22 14:14 NSAIDS (Non-Steroidal AdvReac Other Verified 11/28/22 14:14 Anti-Inflamma Review of Systems Review of Systems: All systems reviewed & are unremarkable except as noted in HPI and below PMFSH Past Medical History Medical History Atypical chest pain COVID-19 Depression Diabetes mellitus Uterine fibroid Viral syndrome Surgical History Surgical History Gastric bypass status for obesity January 12, 2021 Social History Social History Smoking status: Never smoker Substance use: never Living arrangements: with family Gender identity (if verbalized by the patient): Female Exam Const: General: healthy appearing, no acute distress and alert Nutritional Appearance: well nourished Orientation/consciousness: patient oriented x3 Limitations: no limitations Other: Female tech in room during examination. HENMT: Head: normal to inspection Ears: external ears normal Face/Nose/Sinus: Normal external nose present Face and sinus: normal facial exam Mouth: Yes moist mucous membranes Eyes: Conjunctivae: conjunctivae normal Pupils: Equal, round and reactive pupils present EOM: EOMs intact bilaterally Neck: Neck: normal visual inspection Resp: Effort & Inspection: normal respiratory effort Auscultation: clear to auscultation bilaterally Cardio: Rate: regular rate Rhythm: regular rhythm GI: GI Palp: Yes Soft to palpation and No Tenderness to palpation present (GI) Auscultation: normal bowel sounds Back/Spine/Pelvis: Cervical Spine: cervical ROM normal Thoracic/Lumbar Spine: thoraco-lumbar ROM normal Skin: General skin exam: normal color, elasticity normal and turgor normal Rashes: no rashes Neuro: General: patient oriented x3, moves all extremities, no focal motor deficits and CN's II-XI intact bilaterally Speech: normal speech Gait exam (Neuro
--- NOTE | 2023-01-25 19:42 | ECG_ITS ---
Measurements Intervals [place] Rate: 92 P: 22 IA: 161 QRS: 3 QRSD: 93 T: 4 QT: 348 QTc: 431 Interpretive Statements SINUS RHYTHM BORDERLINE T WAVE ABNORMALITY- INFERIOR LEADS BASELINE ARTIFACT- II, III, AVR, AVF BORDERLINE ECG COMPARED TO ECG 05/25/2022 20:56:03 NO SIGNIFICANT CHANGES Electronically Signed On 01-25-2023 21:39:40 CDT by Brendan Stapleton D.O.
[2023-01-25 19:44] VITALS: PULSE 90
[2023-01-25 20:01] LABS: Basophils Absolute Auto 0.08 K/mm3 (0.00-0.10); Basophils Percent Auto 1.4 % (0.0-1.0); Eosinophils Absolute Auto 0.06 K/mm3 (0.02-0.50); Hematocrit 39.3 % (35.0-49.0); Hemoglobin 13.2 g/dL (12.0-15.0); Immature Granulocyte Absolute 0.01 K/mm3 (0.00-0.00); Immature Granulocyte Percent A 0.2 % (0.0-0.0); Lymphocytes Absolute Auto 2.71 K/mm3 (1.10-4.50); Lymphocytes Percent Auto 46.8 % (18.0-42.0); Mean Corpuscular HGB Conc 33.6 g/dL (32.0-36.0); Mean Corpuscular Hemoglobin 31.1 pg (27.0-31.0); Mean Corpuscular Volume 92.5 fL (78.0-102.0); Mean Platelet Volume 10.2 fl (9.2-11.8); Monocytes Absolute Auto 0.46 K/mm3 (0.10-0.90); Monocytes Percent Auto 7.9 % (2.0-11.0); Neutrophils Absolute Auto 2.5 K/mm3 (1.7-7.2); Neutrophils Percent Auto 42.7 % (50.0-70.0); Platelet Count Result 242 K/mm3 (150-420); Red Blood Count 4.25 M/mm3 (4.20-5.40); Red Cell Distribution Width 12.4 % (11.6-14.4); White Blood Count 5.8 K/mm3 (4.8-10.8)
[2023-01-25 20:26] LABS: Alanine Aminotransferase 79 U/L (14-59); Albumin Level 3.4 g/dL (3.4-5.0); Alkaline Phosphatase 75 U/L (46-116); Anion Gap 8 mmol/L (8-16); Aspartate Amino Transferase 35 U/L (15-37); Bilirubin,Total 0.6 mg/dL (0.00-1.00); Blood Urea Nitrogen 8 mg/dL (7-18); Calcium 8.5 mg/dL (8.5-10.1); Carbon Dioxide 28 mmol/L (21-32); Chloride 106 mmol/L (98-108); Estimated CRCL calculation 96 ml/min; Estimated Glomerular Filt Rate > 60; Glucose 112 mg/dL (70-99); Magnesium 1.9 mg/dL (1.8-2.4); Osmolality Calculated 293 mOsm/kg (285-295); Potassium 3.6 mmol/L (3.5-5.1); Sodium 142 mmol/L (136-145); Total Protein 6.6 g/dL (6.4-8.2)
[2023-01-25 20:27] LABS: CRP < 0.5 mg/dL (0.0-0.9); Troponin I < 4.0 ng/L (0.00-60.4)
[2023-01-25 20:49] LABS: Amphetamine Screen Urine Negative (Negative); Barbiturate Screen Urine Negative (Negative); Benzodiazepines Screen Urine Negative (Negative); Cannabinoid Screen Urine Negative (Negative); Cocaine Screen Urine Negative (Negative); Methadone Screen Urine Negative (Negative); Opiate Screen Urine Negative (Negative); Phencyclidine Screen Urine Negative (Negative)
[2023-01-25 21:24] VITALS: BP 133/83; PULSE 80; RESP 20; TEMP 36.9; O2SAT 99
== END 2023-01-25 21:29 | disposition home or self-care (01) ==
PROVIDERS: Emergency Provider Emergency Medicine; PCP Family Medicine
DX: F41.9 Anxiety disorder, unspecified (principal); F32.A Depression, unspecified; E11.9 Type 2 diabetes mellitus without complications; Z79.899 Other long term (current) drug therapy
CPT/HCPCS: 36415; 80053; 80307; 83735; 84443; 84484; 85025; 86140; 93005; 99284

== ENCOUNTER 2024-05-18 20:18 | Emergency (ER) | payer BC, SELFPAY ==
[2024-05-18 20:20] VITALS: BP 111/77; PULSE 91; RESP 18; TEMP 36.6; O2SAT 99
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
[2024-05-18 21:02] LABS: Appearance Urine Clear (Clear); Bilirubin Urine Negative (Negative); Blood Urine Negative (Negative); Color Urine Yellow (Yellow); Glucose Urine UA Negative (Negative); Ketones Urine Negative (Negative); Leukocyte Esterase Ur 1+ LEU/UL (Negative); Nitrate Urine Negative (Negative); Protein Urine Negative (Negative); Specific Grav Ur 1.025 (1.010-1.020)
[2024-05-18 21:04] LABS: Pregnancy On Board Control Positive; Urine Pregnancy Test Negative
[2024-05-18 21:13] LABS: Basophils Absolute Auto 0.09 K/mm3 (0.00-0.10); Basophils Percent Auto 1.5 % (0.0-1.0); Eosinophils Absolute Auto 0.12 K/mm3 (0.02-0.50); Hematocrit 36.2 % (35.0-49.0); Hemoglobin 12.2 g/dL (12.0-15.0); Immature Granulocyte Absolute 0.02 K/mm3 (0.00-0.00); Immature Granulocyte Percent A 0.3 % (0.0-0.0); Lymphocytes Absolute Auto 2.49 K/mm3 (1.10-4.50); Lymphocytes Percent Auto 41.2 % (18.0-42.0); Mean Corpuscular HGB Conc 33.7 g/dL (32-36); Mean Corpuscular Hemoglobin 32.4 pg (27.0-31.0); Mean Platelet Volume 9.8 fl (9.2-11.8); Monocytes Absolute Auto 0.43 K/mm3 (0.10-0.90); Monocytes Percent Auto 7.1 % (2.0-11.0); Neutrophils Absolute Auto 2.89 K/mm3 (1.70-7.20); Neutrophils Percent Auto 47.9 % (50.0-70.0); Platelet Count Result 216 K/mm3 (150-420); Red Blood Count 3.77 M/mm3 (4.20-5.40); Red Cell Distribution Width 12.5 % (11.6-14.4)
[2024-05-18 21:15] LABS: Add Urine Microscopic? YES; Amorphous Sediment Urine Few; Bacteria Urine 3+ /hpf; Calcium Oxalate Crystals Urine Present /hpf; RBC Urine 0-2 /hpf (0-2); Squamous Epithelial Cell Urine Few /hpf (Few)
[2024-05-18 21:28] LABS: Alanine Aminotransferase 18 U/L (14-59); Alkaline Phosphatase 52 U/L (46-116); Anion Gap 8 mmol/L (4-12); Aspartate Amino Transferase 12 U/L (15-37); Bilirubin,Total 0.4 mg/dL (0.00-1.00); Blood Urea Nitrogen 11 mg/dL (7-18); Carbon Dioxide 25 mmol/L (21-32); Chloride 105 mmol/L (98-108); Estimated CRCL calculation 71 ml/min; Estimated Glomerular Filt Rate > 60; Glucose 102 mg/dL (70-99); Lipase 28 U/L (16-77); Osmolality Calculated 285 mOsm/kg (285-295); Potassium 3.4 mmol/L (3.5-5.1); Sodium 138 mmol/L (136-145)
[2024-05-18 21:37] LABS: Influenza A QL RT-PCR Negative (Negative); Influenza B QL RT-PCR Negative (Negative); RSV RNA, RT-PCR Negative (Negative); SARS-CoV-2 RNA PCR Negative (Negative)
[2024-05-18] MEDS: CEPHALEXIN 500 MG CAPSULE PO (21:44)
[2024-05-18] MEDS: POTASSIUM CHLORIDE 20 MEQ ER TABLET PO (21:44)
[2024-05-18] MEDS: ONDANSETRON HCL ODT 4 MG TABLET PO (22:31)
--- NOTE | 2024-05-19 13:40 | PC.NURSE ---
rx called to [facility] per pt request
== END 2024-05-18 22:40 | disposition home or self-care (01) ==
PROVIDERS: Emergency Provider Emergency Medicine; PCP Family Medicine
DX: K52.9 Noninfective gastroenteritis and colitis, unspecified (principal); N30.00 Acute cystitis without hematuria; E86.0 Dehydration; E11.9 Type 2 diabetes mellitus without complications; Z20.822 Contact with and (suspected) exposure to COVID-19
CPT/HCPCS: 36415; 80053; 81001; 81025; 83690; 83735; 85025; 87086; 87088; 87637; 99283; A9270

== ENCOUNTER 2024-09-14 19:05 | Emergency (ER) | payer BC, SELFPAY ==
[2024-09-14 19:05] VITALS: TEMP 36.6
[2024-09-14 19:37] VITALS: BP 117/80; PULSE 110; RESP 18; TEMP 36.7; O2SAT 100
--- NOTE | 2024-09-14 19:52 | PC.NURSE ---
updated patient that provider would be in the room to see her as soon as he could.
--- NOTE | 2024-09-14 19:53 | ED_ITS ---
HPI - Skin/Abscess/Foreign Bdy General Chief complaint: Skin/Abscess/Foreign Body Stated complaint: Insect Bite Time Seen by Provider: 09/14/24 19:14 Source: patient Mode of arrival: ambulatory Limitations: no limitations History of Present Illness HPI narrative: Patient is a 39-year-old female with a right buttocks skin lesion for the past 3 days. She has lots of pain and some drainage from the area. No insect bite per se. MD complaint: rash ( Right buttocks) and abscess/boil ( right buttock) Onset (ago): day(s) (3) Tetanus up to date: unsure Location: buttocks ( right) Severity: moderate Severity scale (1-10): 5 Quality: sharp Pain Consistency: constant Relieving factors: none Exacerbating factors: palpation Context: none Associated symptoms: denies other symptoms Treatments prior to arrival: none Related Data Home Medications Medication Instructions Recorded Confirmed escitalopram oxalate 20 mg tablet 20 mg PO DAILY 07/10/20 05/18/24 trazodone 50 mg tablet 100 mg PO HS 07/10/20 05/18/24 ropinirole 1 mg tablet 1 mg PO DAILY 02/11/21 05/18/24 buspirone 15 mg tablet 15 mg PO BID 10/11/22 05/18/24 estradiol 0.01% (0.1 mg/gram) 1 applic vaginal DAILY 10/11/22 05/18/24 vaginal cream guanfacine 2 mg tablet,extended 2 mg PO DAILY 10/11/22 05/18/24 release 24 hr ketoconazole 2 % topical cream 1 applic topical DAILY 10/11/22 05/18/24 norethindrone acetate 1.5 1 tablet PO DAILY 10/11/22 05/18/24 mg-ethinyl estradiol 30 mcg tablet (Shruti) propranolol 10 mg tablet 10 mg PO DAILY 10/11/22 05/18/24 Allergies Allergy/AdvReac Type Severity Reaction Status Date / Time hydrocodone Allergy Mild Hives Verified 09/14/24 20:35 fluconazole [From Diflucan] Allergy Hives Verified 05/18/24 20:25 sertraline [From Zoloft] Allergy Hives Verified 05/18/24 20:25 tuberculin, purified protein Allergy Hives Verified 05/18/24 20:25 deriva iodine AdvReac Hives Verified 05/18/24 20:25 NSAIDS (Non-Steroidal AdvReac Other Verified 05/18/24 20:25 Anti-Inflamma Review of Systems Review of Systems: All systems reviewed & are unremarkable except as noted in HPI and below Constitutional: Constitutional: Reports no additional constitutional complaints Eyes: Eyes: Reports no additional eye complaints ENT: Reports system reviewed and no additional complaints, except as documented Cardiovascular: Cardiovascular: Reports no additional cardiovascular complaints Respiratory: Respiratory: Reports no additional respiratory complaints Gastrointestinal: Gastrointestinal: Reports no additional gastrointestinal complaints Genitourinary: Genitourinary: Reports no additional female genitourinary complaints Musculoskeletal: Musculoskeletal: Reports no additional musculoskeletal complaints Integumentary/Breasts: Skin/Breast: Reports system reviewed and no additional complaints, except as docu Neurologic: Reports system reviewed and no additional complaints, except as documented Psychiatric: Psychiatric: Reports no additional psychiatric complaints Endocrine: Endocrine: Reports no additional endocrine complaints Hematologic/Lymphatic: Hematologic/Lymphatic: Reports no additional hematologic/lymphatic complaints Allergic/Immunologic: Allergic/Immunologic: Reports no additional allergic/immunologic complaints [facility] Past Medical History Medical History Atypical chest pain COVID-19 Depression Diabetes mellitus Uterine fibroid Viral syndrome Surgical History Surgical History Gastric bypass status for obesity January 12, 2021 Social History Social History Smoking status: Never smoker Substance use: never Living arrangements: with family Gender identity (if verbalized by the patient): Female Exam Const: General: healthy appearing Nutritional Appearance: well nourished Orientation/consciousness: patient oriented x3 HENMT: Head: normal to inspection Ears: external ears normal Face/Nose/S inus: Normal external nose present Eyes: Conjunctivae: conjunctivae normal Pupils: Equal, round and reactive pupils present EOM: EOMs intact bilaterally Neck: Neck: normal visual inspection Chest: Chest palpation & inspection: normal inspection of the chest Resp: Effort & Inspection: normal respiratory effort and not labored Auscultation: clear to auscultation bilaterally and no crackles Cardio: Rate: regular rate Rhythm: regular rhythm Heart sounds: no murmurs GI: Inspection: non-distended Auscultation: normal bowel sounds : General: Yes bladder normal to palpation Back/Spine/Pelvis: Back: no CVA tenderness Skin: General skin exam: normal color Rashes: rash noted Wounds: wound noted Other: right buttocks was examined with female nurse in the room; there is a moderate- sized partially drained boil with an open nidus, localized redness of cellulitis, the abscess/ boil area does not have loculations on examination Neuro: General: patient oriented x3 Cranial nerves: Yes Nystagmus not present Speech: normal speech Extrem: General: normal to inspection Psych: Mental Status: mental status grossly normal Affect: normal affect Course Vital Signs Vital signs: Vital Signs Temperature 36.6 C 09/14/24 19:05 Temperature 36.7 C 09/14/24 19:37 Pulse Rate 110 H 09/14/24 19:37 Respiratory Rate 18 09/14/24 19:37 Blood Pressure 117/80 09/14/24 19:37 Pulse Oximetry 100 09/14/24 19:37 Oxygen Delivery Room Air 09/14/24 19:37 MDM - Skin/Abscess/Foreign Bdy MDM Narrative Medical decision making narrative: patient is a 39-year-old female with a right buttocks skin lesion of abscess and boil. We are going to go ahead and treat it since it is already open at this time with some Bactrim double strength 2 tablets p.o. x1 now. We will give her a dose of tramadol which she is not allergic to per her history. If this does not resolve or gets worse over the next few days, she will present back to the ER or primary doctor to have I&D done. Discharge Plan Discharge Clinical Impression: Abscess of skin Patient Disposition: Home, Self-Care Condition: Stable Instructions: Antibiotic Form, Abscess (ED) Additional Instructions: Please follow-up with the primary doctor in the next week. We will start with antibiotics and if the area gets worse come back to the ER or your primary doctor to have the area opened and packed. Prescriptions: New sulfamethoxazole-trimethoprim [Bactrim DS] 800-160 mg tablet 1 tablet PO BID 10 Days Qty: 20 0RF No Action trazodone 50 mg tablet 100 mg PO HS escitalopram oxalate 20 mg tablet 20 mg PO DAILY ropinirole 1 mg tablet 1 mg PO DAILY norethindrone ac-eth estradiol [Shruti] 1.5-30 mg-mcg tablet 1 tablet PO DAILY propranolol 10 mg tablet 10 mg PO DAILY estradiol 0.01 % (0.1 mg/gram) cream 1 applic VAGINAL DAILY ketoconazole 2 % cream 1 applic TOPICAL DAILY buspirone 15 mg tablet 15 mg PO BID guanfacine 2 mg tablet extended release 24 hr 2 mg PO DAILY acetaminophen [Tylenol] 325 mg capsule 650 mg PO Q8H PRN (Reason: pain) Qty: 20 0RF tramadol 50 mg tablet 50 mg PO BID PRN (Reason: pain) Qty: 4 0RF cephalexin 500 mg capsule 500 mg PO BID 7 Days Qty: 14 0RF ondansetron 4 mg tablet,disintegrating 4 mg PO Q8H PRN (Reason: nausea and vomiting) Qty: 20 0RF Follow-up/Referrals: Isidra,Judd Vincent MD [Primary Care Provider] - Time of Disposition: 20:42
[2024-09-14] MEDS: SULFAMETHOXAZOLE/TRIMETHOPRIM 800/160 MG DS TABLET 2 TAB PO (20:38)
[2024-09-14] MEDS: traMADol HCL (*CRX) 50 MG TABLET 100 MG PO (20:48)
[2024-09-14 21:00] VITALS: BP 116/82; PULSE 86; RESP 18; O2SAT 97
== END 2024-09-14 21:00 | disposition home or self-care (01) ==
PROVIDERS: Emergency Provider Emergency Medicine; PCP Family Medicine
DX: L02.31 Cutaneous abscess of buttock (principal); E11.9 Type 2 diabetes mellitus without complications
CPT/HCPCS: 99283; A9270

== ENCOUNTER 2024-10-08 20:23 | Emergency (ER) | payer BC, SELFPAY ==
--- NOTE | ~2024-10-08 | CT_ITS ---
EXAMINATION: CT abdomen pelvis w con DATE: 10/08/2024 21:46 INDICATION: abdominal pain TECHNIQUE: Computed tomography (CT) of the abdomen and pelvis was performed with 100 mL Omnipaque-350 intravenous contrast. Automated exposure control and iterative reconstruction technique were employe d. The dose-length product was 508.93 mGy-cm. COMPARISON: None. FINDINGS: Lower thorax: Unremarkable Liver: Normal. Biliary/Gallbladder: Gallbladder is absent. Mild intrahepatic and extra hepatic duct dilation presuma alfonso secondary to cholecystectomy. Pancreas: No mass or duct dilation. Spleen: Normal. Adrenals:No mass. Kidneys: No suspicious mass, obstructing stone, or hydronephrosis. GI tract: Status post antecolic Aurea-en-Y gastric bypass surgery. Marked dilation of the entire Aurea (AKA efferent or alimentary) limb, with wall thickening, moderate surrounding mesenteric edema, and e radha pneumatosis. Distal transition point at the jejunojejunal anastomosis. These findings may be sec ondary to an anastomotic stricture, adhesion, or internal hernia. Mild wall edema of the excluded gas tric remnant. Normal-appearing hepatobiliary (AKA afferent ) limb. No large bowel dilation. Appendix not confidently visualized. Mesentery/Peritoneum: No ascites, mass, or free air. Retroperitoneum: No mass. Pelvis: Pelvic organs are within normal limits. Moderate volume free pelvic fluid. Soft Tissues: Soft tissues and body wall unremarkable. Bones: No acute osseous finding. IMPRESSION: Small bowel obstruction involving the Aurea (efferent/alimentary) limb of the gastric Aurea-en-Y bypass , with findings concerning for early ischemia. Moderate volume, simple, deep pelvic fluid, presumably reactive ascites. Results reported telephonically to Dr. He by Dr. Serrato at 10:05 PM on 10/08/2024. Reviewed, dictated and finalized at location [facility] IMPRESSION: Small bowel obstruction involving the Aurea (efferent/alimentary) limb of the ga stric Aurea-en-Y bypass, with findings concerning for early ischemia. Moderate volume, simple, deep pelvic fluid, presumably reactive ascites. Results reported telephonically to Dr. He by Dr. Serrato at 10:05 PM on 10/08.
[2024-10-08 20:23] VITALS: BP 138/92; PULSE 84; RESP 22; TEMP 36.4; O2SAT 99
--- NOTE | 2024-10-08 20:27 | ED.ABDPAIN ---
HPI - Abdominal Pain General Chief Complaint: Abdominal Pain Stated Complaint: abdominal pain Time Seen by Provider: 10/08/24 20:26 Source: patient Mode of arrival: ambulatory Limitations: no limitations History of Present Illness HPI narrative: 39 year old female presents to the Emergency Department complaining of abdominal pain. Onset 3 hours ago. States pain across upper abdomen. Having some nausea, vomiting, no diarrhea or constipation. Denies urinary tract symptoms. History of cholecystectomy. MD elicited complaint: abdominal pain Onset (ago): hour(s) (3) Pain Consistency: constant Location: epigastric, LUQ and RUQ Severity: severe Radiation: bilateral flank Exacerbating factors: nothing Relieving factors: nothing Associated symptoms: nausea and vomiting Related Data Patient : No Home Medications Medication Instructions Recorded Confirmed escitalopram oxalate 20 mg tablet 20 mg PO DAILY 07/10/20 05/18/24 trazodone 50 mg tablet 100 mg PO HS 07/10/20 05/18/24 ropinirole 1 mg tablet 1 mg PO DAILY 02/11/21 05/18/24 buspirone 15 mg tablet 15 mg PO BID 10/11/22 05/18/24 estradiol 0.01% (0.1 mg/gram) 1 applic vaginal DAILY 10/11/22 05/18/24 vaginal cream guanfacine 2 mg tablet,extended 2 mg PO DAILY 10/11/22 05/18/24 release 24 hr ketoconazole 2 % topical cream 1 applic topical DAILY 10/11/22 05/18/24 norethindrone acetate 1.5 1 tablet PO DAILY 10/11/22 05/18/24 mg-ethinyl estradiol 30 mcg tablet (Shruti) propranolol 10 mg tablet 10 mg PO DAILY 10/11/22 05/18/24 Allergies Allergy/AdvReac Type Severity Reaction Status Date / Time hydrocodone Allergy Mild Hives Verified 09/14/24 20:35 fluconazole [From Diflucan] Allergy Hives Verified 05/18/24 20:25 sertraline [From Zoloft] Allergy Hives Verified 05/18/24 20:25 tuberculin, purified protein Allergy Hives Verified 05/18/24 20:25 deriva iodine AdvReac Hives Verified 05/18/24 20:25 NSAIDS (Non-Steroidal AdvReac Other Verified 05/18/24 20:25 Anti-Inflamma Review of Systems Review of Systems: All systems reviewed & are unremarkable except as noted in HPI and below Constitutional: Constitutional: Reports as per HPI, Denies chills and Denies fever(s) Eyes: Eyes: Reports as per HPI ENT: Reports system reviewed and no additional complaints, except as documented Cardiovascular: Cardiovascular: Reports as per HPI and Denies chest pain Respiratory: Respiratory: Reports as per HPI, Denies chest congestion, Denies cough and Denies dyspnea Gastrointestinal: Gastrointestinal: Reports as per HPI, Reports abdominal pain, Denies constipation, Denies diarrhea, Reports nausea and Reports vomiting Genitourinary: Genitourinary: Reports no additional female genitourinary complaints, Denies nocturia, Denies dysuria and Reports flank pain Musculoskeletal: Musculoskeletal: Reports no additional musculoskeletal complaints and Reports back pain Integumentary/Breasts: Skin/Breast: Reports system reviewed and no additional complaints, except as docu Neurologic: Reports system reviewed and no additional complaints, except as documented Psychiatric: Psychiatric: Reports no additional psychiatric complaints Endocrine: Endocrine: Reports no additional endocrine complaints Hematologic/Lymphatic: Hematologic/Lymphatic: Reports no additional hematologic/lymphatic complaints Allergic/Immunologic: Allergic/Immunologic: Reports no additional allergic/immunologic complaints [facility] Past Medical History Medical History Atypical chest pain COVID-19 Depression Diabetes mellitus Uterine fibroid Viral syndrome Surgical History Surgical History Gastric bypass status for obesity January 12, 2021 Social History Social History Smoking status: Never smoker Substance use: never Living arrangements: with family Gender identity (if verbalized by the patient): Female Exam Const: Nutritional Appearance: well nourished Orientation/consciousness: patient oriented x3 Limitations: no limitations Other: moderate distress HENMT: Head: normal to inspection Ears: external ears normal Face/Nose/Sinus: Normal external nose present Face and sinus: normal facial exam Mouth: Yes Normal oral and palatal mucosa present Eyes: Conjunctivae: conjunctivae normal Pupils: Equal, round and reactive pupils present EOM: EOMs intact bilaterally Direct Ophthalmoscopy: no photophobia Neck: Neck: normal visual inspection Chest: Chest palpation & inspection: normal inspection of the chest Resp: Effort & Inspection: normal respiratory effort Auscultation: clear to auscultation bilaterally Cardio: Rate: regular rate Rhythm: regular rhythm GI: Inspection: non-distended GI Palp: Yes Soft to palpation and Yes Tenderness to palpation present (GI) (across upper abdomen) : General: Yes bladder normal to palpation Back/Spine/Pelvis: Back: CVA tenderness (bilateral mild upper) Skin: General skin exam: normal color Rashes: no rashes Neuro: General: patient oriented x3 Other: grossly normal Extrem: General: normal to inspection and no clubbing, cyanosis or edema Psych: Affect: Anxious affect present Course Course Emergency Course: 39 y/o female arrives to the ED c/o abdominal pain across upper abdomen. States onset 3 hours ago. N/V. PE: mod distress, tender across upper abdomen CBC: H/H 12.5/37.5, Plt 243; wbc 6.6 with 37 S, 53 L, 7 M CMP: Na 139, K 3.4, Cl 107, CO2 22, Glc 116, BUN 12, Cr 0.79; LFT's normal A/L: 42 /34 Lactic: 1 UA: 1+ ketones UPreg: negative CT Abd/Pelvis: s/p gastric bypass, concern for ischemic small bowel. Marked dilation entire Aurea (aka efferrent or ailmentary) limb. Wall thickening and moderate surrounding mesenteric edema, early pneumatosis. Distal transition point at the jejunaljejunal anastomosis. Suspect ischemia bowel. Could be from stricture, adhesions, internal hernia. Mill wall edema of gastric remnant. Normal hepatobiliary (aka afferent) limb. Tx: saline lock, Zofran 4 mg, MS 2 mg [still having pain]. GI cocktail. (2212) [facility] Transfer contacted. Will call back ([phone]) Discussed with Dr. Cueto (bariatric surgery) and Dr. Ponce (hospitalist) at [facility] [place]. Report given. Dr. Cueto states she is leaving town tomorrow and is unable to accept patient. Recommends transfer to another facility. [facility] transfer state [facility] is only other [facility] facility with bariatric surgery. Will contact and call back. ([phone]) [facility] transfer called back stating [facility] unable to accept transfer. No other options with [facility]. (2302) [facility] contacted. Report given. Will contact surgeon and call back ([phone]) [facility] contacted. [facility] beds[facility] ([facility] Dr. Maravilla (Surgery - [facility]) call back. Report given. Patient accepted for transfer. Would like NS, Zosyn, Compazine prn. Get patient to ED clair [fly]. Would like to take to OR clair. (2324) Discussed with Dr. Bell (ED - [facility]). Report given. Patient accepted for transfer. Agrees with management. (2329) [facility] contacted for transfer. Will check weather. (2334) [facility] accepted transfer. Will be here in 18 minutes. (0014) [facility] departing with transfer Vital Signs Vital signs: Vital Signs Temperature 36.4 C 10/08/24 20:23 Pulse Rate 84 10/08/24 20:23 Respiratory Rate 22 H 10/08/24 20:23 Blood Pressure 138/92 H 10/08/24 20:23 Pulse Oximetry 99 10/08/24 20:23 Oxygen Delivery Room Air 10/08/24 20:23 Temperature 36.5 C 10/08/24 22:17 Pulse Rate 62 10/08/24 23:16 Respiratory Rate 16 10/08/24 23:16 Blood Pressure 110/77 10/08/24 23:16 Pulse Oximetry 100 10/08/24 23:16 Oxygen Delivery Room Air 10/08/24 23:16 Transfer Transfered to: [facility] Transportation: [facility] Transfer rationale: S/P Bariatric surgery. Concern re: ischemic bowel. Transfer to Bariatric Surgery Accepting physician: Dr. Maravilla (Surgery), Dr. Bell (ED) MDM - Abdominal Pain Lab Data 10/08/24 20:44 10/08/24 20:44 Labs: Lab Results 10/08/24 10/08/24 Range/Units 20:44 21:54 WBC 6.6 (4.8-10.8) K/mm3 RBC 3.92 L (4.20-5.40) M/mm3 Hgb 12.5 (12.0-15.0) g/dL Hct 37.5 (35.0-49.0) % MCV 95.7 (78.0-102.0) fL MCH 31.9 H (27.0-31.0) pg MCHC 33.3 (32-36) g/dL RDW 13.0 (11.6-14.4) % Plt Count 243 (150-420) K/mm3 MPV 10.2 (9.2-11.8) fl Immature Gran % (Auto) 0.2 H (0.0-0.0) % Neut % (Auto) 37.2 L (50.0-70.0) % Lymph % (Auto) 53.1 H (18.0-42.0) % [place] % (Auto) 6.6 (2.0-11.0) % Eos % (Auto) 1.5 (1.0-6.0) % Baso % (Auto) 1.4 H (0.0-1.0) % Lymph # (Auto) 3.48 (1.10-4.50) K/mm3 [place] # (Auto) 0.43 (0.10-0.90) K/mm3 Eos # (Auto) 0.10 (0.02-0.50) K/mm3 Baso # (Auto) 0.09 (0.00-0.10) K/mm3 Abs Immat Gran (auto) 0.01 H (0.00-0.00) K/mm3 Absolute Neuts (auto) 2.44 (1.70-7.20) K/mm3 Absolute Nucleated RBC 0.00 (0.00-0.00) K/mm3 Nucleated RBC % 0.0 (0-0.0) % Sodium 139 (136-145) mmol/L Potassium 3.4 L (3.5-5.1) mmol/L Chloride 107 (98-108) mmol/L Carbon Dioxide 22 (21-32) mmol/L Anion Gap 10 (4-12) mmol/L BUN 12 (7-18) mg/dL Creatinine 0.79 (0.55-1.02) mg/dL Estim Creat Clear Calc 77 ml/min Estimated GFR > 60 (59 - ) Glucose 116 H (70-99) mg/dL Calculated Osmolality 288 (285-295) mOsm/kg Lactic Acid 1.0 (0.4-2.0) mmol/L Calcium 8.4 L (8.5-10.1) mg/dL Total Bilirubin 0.3 (0.00-1.00) mg/dL AST 11 L (15-37) U/L ALT 18 (14-59) U/L Alkaline Phosphatase 65 (46-116) U/L Total Protein 6.3 L (6.4-8.2) g/dL Albumin 3.3 L (3.4-5.0) g/dL Amylase 42 (25-115) U/L Lipase 34 (16-77) U/L Urine Color Light yellow (Yellow) Urine Appearance Clear (Clear) Urine pH 5.5 (5.0-8.0) Ur Specific [place] 1.020 (1.010-1.020) Urine Protein Negative (Negative) Urine Glucose (UA) Negative (Negative) Urine Ketones 1+ H (Negative) Ur Blood (Man) Negative (Negative) Urine Nitrate Negative (Negative) Urine Bilirubin Negative (Negative) Urine Urobilinogen 0.2 (0.2-1.0) mg/dL Ur Leukocyte Esterase Negative (Negative) Urine Test Negative Imaging Data Radiologist's impression: ITS Impressions Abdomen/Pelvis CT 10/08/24 21:50 IMPRESSION: Small bowel obstruction involving the Aurea (efferent/alimentary) limb of the gastric Aurea-en-Y bypass, with findings concerning for early ischemia. Moderate volume, simple, deep pelvic fluid, presumably reactive ascites. Results reported telephonically to Dr. He by Dr. Serrato at 10:05 PM on 10/08/2024. Discharge Plan Discharge Clinical Impression: Acute ischemia of small intestine, Abdominal pain Patient Disposition: Acute Care Hospital Condition: Stable Patient Language: Czech Prescriptions: No Action trazodone 50 mg tablet 100 mg PO HS escitalopram oxalate 20 mg tablet 20 mg PO DAILY ropinirole 1 mg tablet 1 mg PO DAILY norethindrone ac-eth estradiol [Shruti] 1.5-30 mg-mcg tablet 1 tablet PO DAILY propranolol 10 mg tablet 10 mg PO DAILY estradiol 0.01 % (0.1 mg/gram) cream 1 applic VAGINAL DAILY ketoconazole 2 % cream 1 applic TOPICAL DAILY buspirone 15 mg tablet 15 mg PO BID guanfacine 2 mg tablet extended release 24 hr 2 mg PO DAILY acetaminophen [Tylenol] 325 mg capsule 650 mg PO Q8H PRN (Reason: pain) Qty: 20 0RF tramadol 50 mg tablet 50 mg PO BID PRN (Reason: pain) Qty: 4 0RF cephalexin 500 mg capsule 500 mg PO BID 7 Days Qty: 14 0RF ondansetron 4 mg tablet,disintegrating 4 mg PO Q8H PRN (Reason: nausea and vomiting) Qty: 20 0RF sulfamethoxazole-trimethoprim [Bactrim DS] 800-160 mg tablet 1 tablet PO BID 10 Days Qty: 20 0RF Follow-up/Referrals: Isidra,Judd Vincent MD [Primary Care Provider] - Time of Disposition: 23:39
[2024-10-08] MEDS: ONDANSETRON INJ 4 MG/2 ML VIAL IV PUSH (20:44)
[2024-10-08] MEDS: MORPHINE SULFATE (*CRX) 2 MG/ML INJ IV PUSH ×3 (20:45→23:54)
[2024-10-08 20:48] LABS: Basophils Absolute Auto 0.09 K/mm3 (0.00-0.10); Basophils Percent Auto 1.4 % (0.0-1.0); Eosinophils Percent Auto 1.5 % (1.0-6.0); Hematocrit 37.5 % (35.0-49.0); Hemoglobin 12.5 g/dL (12.0-15.0); Immature Granulocyte Absolute 0.01 K/mm3 (0.00-0.00); Immature Granulocyte Percent A 0.2 % (0.0-0.0); Lymphocytes Absolute Auto 3.48 K/mm3 (1.10-4.50); Lymphocytes Percent Auto 53.1 % (18.0-42.0); Mean Corpuscular HGB Conc 33.3 g/dL (32-36); Mean Corpuscular Hemoglobin 31.9 pg (27.0-31.0); Mean Corpuscular Volume 95.7 fL (78.0-102.0); Mean Platelet Volume 10.2 fl (9.2-11.8); Monocytes Absolute Auto 0.43 K/mm3 (0.10-0.90); Monocytes Percent Auto 6.6 % (2.0-11.0); Neutrophils Absolute Auto 2.44 K/mm3 (1.70-7.20); Neutrophils Percent Auto 37.2 % (50.0-70.0); Platelet Count Result 243 K/mm3 (150-420); Red Blood Count 3.92 M/mm3 (4.20-5.40); White Blood Count 6.6 K/mm3 (4.8-10.8)
[2024-10-08 20:57] VITALS: BP 121/73; PULSE 68; RESP 18; O2SAT 100
[2024-10-08 21:18] LABS: Alanine Aminotransferase 18 U/L (14-59); Albumin Level 3.3 g/dL (3.4-5.0); Alkaline Phosphatase 65 U/L (46-116); Amylase 42 U/L (25-115); Anion Gap 10 mmol/L (4-12); Aspartate Amino Transferase 11 U/L (15-37); Bilirubin,Total 0.3 mg/dL (0.00-1.00); Blood Urea Nitrogen 12 mg/dL (7-18); Carbon Dioxide 22 mmol/L (21-32); Chloride 107 mmol/L (98-108); Estimated CRCL calculation 77 ml/min; Estimated Glomerular Filt Rate > 60; Glucose 116 mg/dL (70-99); Lipase 34 U/L (16-77); Osmolality Calculated 288 mOsm/kg (285-295); Potassium 3.4 mmol/L (3.5-5.1); Sodium 139 mmol/L (136-145); Total Protein 6.3 g/dL (6.4-8.2)
[2024-10-08 21:23] LABS: Calcium 8.4 mg/dL (8.5-10.1)
[2024-10-08] MEDS: MAG HYDROX/ALUMINUM HYD/SIMETH 30 ML, PHENobarb/HYOSCY/ATROPINE/SCOP 32.4 MG, LIDOCAINE... PO (21:28)
--- NOTE | 2024-10-08 21:30 | PC.NURSE ---
2124 Pt hit call light & stated that she was in excruciating pain forwarded info to RN
--- NOTE | 2024-10-08 21:45 | PC.NURSE ---
Pt still c/o some abd pain and cramping not going away and feeling nauseated. Awaiting CT report. pt given warm blanket, VSS.
[2024-10-08] MEDS: METOCLOPRAMIDE HCL INJ 10 MG/2 ML VIAL IV PUSH (21:52)
[2024-10-08 21:56] LABS: Add Urine Microscopic? NO; Appearance Urine Clear (Clear); Bilirubin Urine Negative (Negative); Blood Urine Negative (Negative); Color Urine Light Yellow (Yellow); Glucose Urine UA Negative (Negative); Ketones Urine 1+ (Negative); Leukocyte Esterase Ur Negative (Negative); Nitrate Urine Negative (Negative); Protein Urine Negative (Negative); Urobilinogen Urine 0.2 mg/dL (0.2-1.0); pH Urine 5.5 (5.0-8.0)
[2024-10-08 21:59] LABS: Pregnancy On Board Control Positive; Urine Pregnancy Test Negative
--- NOTE | 2024-10-08 22:09 | PC.NURSE ---
Report on CT scan givne to pt by ERP Dr He. Pt states her bariatric surgeon is located at [facility]. Call will be placed to [facility].
[2024-10-08 22:17] VITALS: BP 119/76; PULSE 62; RESP 18; TEMP 36.5; O2SAT 100
--- NOTE | 2024-10-08 22:37 | PC.NURSE ---
Pt resting on side w/ blanket, explained call attempts to another facility for bariatric surgeon. Call harris at side, continuing to monitor.
[2024-10-08 23:16] VITALS: BP 110/77; PULSE 62; RESP 16; O2SAT 100
--- NOTE | 2024-10-08 23:30 | PC.NURSE ---
Pt has been accepted by Dr Alonzo for Dr Cueto at [facility]. Pt informed that her surgeon contacted another bariatric Dr for her to be seen by at [facility]. Pt will transfer to [facility] via helicopter at request of Dr Vila so that he can take her immediately to surgery. Calls and reports made and given.
[2024-10-08] MEDS: SODIUM CHLORIDE 0.9% IV 1,000 ML 999 ML IV CONT (23:31)
[2024-10-08] MEDS: PIPERACILLN/TAZ 3.375GM/NS50ML 3.375 GM/50 ML BAG IVPB (23:32)
--- NOTE | 2024-10-08 23:37 | PC.NURSE ---
Completed a patient belongings sheet on pt upon transfer
[2024-10-09 00:14] VITALS: BP 116/82; PULSE 68; RESP 18; TEMP 36.5; O2SAT 100
== END 2024-10-09 00:14 | disposition short-term general hospital (02) ==
PROVIDERS: Emergency Provider Emergency Medicine; PCP Family Medicine
DX: K55.019 Acute (reversible) ischemia of small intestine, extent unspecified (principal); E11.9 Type 2 diabetes mellitus without complications
CPT/HCPCS: 36415; 74177; 80053; 81003; 81025; 82150; 83605; 83690; 85025; 96365; 96375; 96376; 99285; A9270; J2270; J2405; J2543; J2765; J7030; Q9967

== ENCOUNTER 2024-11-01 09:58 | Emergency (ER) | payer BC, SELFPAY ==
[2024-11-01 09:59] VITALS: BP 106/51; PULSE 76; RESP 18; TEMP 36.5; O2SAT 99
--- NOTE | 2024-11-01 10:08 | PC.NURSE ---
Assisted Dr. Daniels w/ rectal exam; Hemoccult test done by MD; I sent to lab
[2024-11-01 10:18] LABS: Occult Blood Positive (Negative)
[2024-11-01 10:28] LABS: Basophils Absolute Auto 0.05 K/mm3 (0.00-0.10); Basophils Percent Auto 0.8 % (0.0-1.0); Eosinophils Absolute Auto 0.06 K/mm3 (0.02-0.50); Eosinophils Percent Auto 0.9 % (1.0-6.0); Hematocrit 39.1 % (35.0-49.0); Hemoglobin 13.1 g/dL (12.0-15.0); Immature Granulocyte Absolute 0.02 K/mm3 (0.00-0.00); Immature Granulocyte Percent A 0.3 % (0.0-0.0); Lymphocytes Absolute Auto 1.69 K/mm3 (1.10-4.50); Lymphocytes Percent Auto 26.2 % (18.0-42.0); Mean Corpuscular HGB Conc 33.5 g/dL (32-36); Mean Corpuscular Volume 95.4 fL (78.0-102.0); Mean Platelet Volume 9.4 fl (9.2-11.8); Monocytes Absolute Auto 0.22 K/mm3 (0.10-0.90); Monocytes Percent Auto 3.4 % (2.0-11.0); Neutrophils Absolute Auto 4.41 K/mm3 (1.70-7.20); Neutrophils Percent Auto 68.4 % (50.0-70.0); Platelet Count Result 241 K/mm3 (150-420); Red Cell Distribution Width 12.2 % (11.6-14.4); White Blood Count 6.5 K/mm3 (4.8-10.8)
--- NOTE | 2024-11-01 10:38 | ED_ITS ---
HPI - Abdominal Pain General Chief Complaint: Abdominal Pain Stated Complaint: rectal bleeding Time Seen by Provider: 11/01/24 10:13 Source: patient Mode of arrival: ambulatory Limitations: no limitations History of Present Illness HPI narrative: this is a 39-year-old female presents with bright red blood per rectum for the last couple of days recently had hernia repair surgery and was told by her surgeon to present to the emergency room for evaluation. Currently there is currently no bleeding, does have some tenderness at the surgical site but the surgical site is healing well with no drainage no redness no warmth or tenderness. No fever chills. Pertinent past history: gastrointestinal bleeding Onset (ago): day(s) Pain Consistency: intermittent and now resolved Severity: mild Related Data Home Medications ?Medication ?Instructions ?Recorded ?Confirmed ?Last Taken ?Type escitalopram oxalate 20 mg tablet 20 mg PO DAILY 07/10/20 11/01/24 02/10/21 History trazodone 50 mg tablet 100 mg PO HS 07/10/20 11/01/24 02/10/21 History ropinirole 1 mg tablet 1 mg PO DAILY 02/11/21 11/01/24 02/10/21 History buspirone 15 mg tablet 15 mg PO BID 10/11/22 11/01/24 Unknown History estradiol 0.01% (0.1 mg/gram) 1 applic vaginal DAILY 10/11/22 11/01/24 Unknown History vaginal cream guanfacine 2 mg tablet,extended 2 mg PO DAILY 10/11/22 11/01/24 Unknown History release 24 hr ketoconazole 2 % topical cream 1 applic topical DAILY 10/11/22 11/01/24 Unknown History norethindrone acetate 1.5 1 tablet PO DAILY 10/11/22 11/01/24 Unknown History mg-ethinyl estradiol 30 mcg tablet (Shruti) propranolol 10 mg tablet 10 mg PO DAILY 10/11/22 11/01/24 Unknown History Allergies Allergy/AdvReac Type Severity Reaction Status Date / Time hydrocodone Allergy Mild Hives Verified 11/01/24 10:16 fluconazole (From Diflucan) Allergy Hives Verified 11/01/24 10:16 sertraline (From Zoloft) Allergy Hives Verified 11/01/24 10:16 tuberculin, purified protein Allergy Hives Verified 11/01/24 10:16 deriva iodine AdvReac Hives Verified 11/01/24 10:16 NSAIDS (Non-Steroidal AdvReac Other Verified 11/01/24 10:16 Anti-Inflamma Review of Systems 2 Review of Systems: All systems reviewed & are unremarkable except as noted in HPI and below PMFSH Past Medical History Medical History Uterine fibroid Viral syndrome COVID-19 Atypical chest pain Depression Diabetes mellitus Surgical History Surgical History Gastric bypass status for obesity January 12, 2021 Social History Social History Smoking status: Never smoker Substance use: never Living arrangements: with family Gender identity (if verbalized by the patient): Female Exam 2 Const: General: healthy appearing and no acute distress Nutritional Appearance: well nourished Orientation/consciousness: patient oriented x3 Limitations: no limitations Resp: Effort & Inspection: normal respiratory effort Auscultation: clear to auscultation bilaterally Cardio: Rate: regular rate Rhythm: regular rhythm GI: GI Palp: Yes Soft to palpation Auscultation: normal bowel sounds : General: Yes bladder normal to palpation Other: Rectal exam shows no old overt GI bleed no bright red blood per rectum, but there is a internal hemorrhoid at approximately the 12 o'clock position. Urinary Catheter: Urinary Catheter: patent and draining Back/Spine/Pelvis: Back: no CVA tenderness Skin: General skin exam: normal color Rashes: no rashes Course Course Emergency Course: Patient currently not having any rectal bleeding rectal exam did show that there is an internal hemorrhoid around the 12 o'clock position,, stool guaiac was positive blood counts performed all are stable, will send Anusol to patient's pharmacy advised follow-up with her primary care physician and her surgeon. Vital Signs Vital signs: Vital Signs Temperature 36.5 C 11/01/24 09:59 Pulse Rate 76 11/01/24 09:59 Respiratory Rate 18 11/01/24 09:59 Blood Pressure 106/51 L 11/01/24 09:59 Pulse Oximetry 99 11/01/24 09:59 Oxygen Delivery Room Air 11/01/24 09:59 Temperature 36.5 C 11/01/24 09:59 Pulse Rate 76 11/01/24 09:59 Respiratory Rate 18 11/01/24 09:59 Blood Pressure 106/51 L 11/01/24 09:59 Pulse Oximetry 99 11/01/24 09:59 Oxygen Delivery Room Air 11/01/24 09:59 MDM - Abdominal Pain Lab Data 11/01/24 10:24 Labs: Lab Results 11/01/24 11/01/24 Range/Units 10:13 10:24 WBC 6.5 (4.8-10.8) K/mm3 RBC 4.10 L (4.20-5.40) M/mm3 Hgb 13.1 (12.0-15.0) g/dL Hct 39.1 (35.0-49.0) % MCV 95.4 (78.0-102.0) fL MCH 32.0 H (27.0-31.0) pg MCHC 33.5 (32-36) g/dL RDW 12.2 (11.6-14.4) % Plt Count 241 (150-420) K/mm3 MPV 9.4 (9.2-11.8) fl Immature Gran % (Auto) 0.3 H (0.0-0.0) % Neut % (Auto) 68.4 (50.0-70.0) % Lymph % (Auto) 26.2 (18.0-42.0) % [place] % (Auto) 3.4 (2.0-11.0) % Eos % (Auto) 0.9 L (1.0-6.0) % Baso % (Auto) 0.8 (0.0-1.0) % Lymph # (Auto) 1.69 (1.10-4.50) K/mm3 [place] # (Auto) 0.22 (0.10-0.90) K/mm3 Eos # (Auto) 0.06 (0.02-0.50) K/mm3 Baso # (Auto) 0.05 (0.00-0.10) K/mm3 Abs Immat Gran (auto) 0.02 H (0.00-0.00) K/mm3 Absolute Neuts (auto) 4.41 (1.70-7.20) K/mm3 Absolute Nucleated RBC 0.00 (0.00-0.00) K/mm3 Nucleated RBC % 0.0 (0-0.0) % Stool Occult Blood Positive A (Negative) Critical Care Time Critical Care Time Critical Care Time: No Discharge Plan Discharge Clinical Impression: Internal hemorrhoid Patient Disposition: Home, Self-Care Condition: Stable Instructions: Antibiotic Form, Hemorrhoids (ED) Additional Instructions: advised patient to follow-up with primary and surgeon and to take medication as prescribed. Patient Language: Danish Prescriptions: New hydrocortisone acetate [Anusol-HC] 25 mg suppository 25 mg RECTAL DAILY 7 Days Qty: 12 0RF No Action trazodone 50 mg tablet 100 mg PO HS escitalopram oxalate 20 mg tablet 20 mg PO DAILY ropinirole 1 mg tablet 1 mg PO DAILY norethindrone ac-eth estradiol [Shruti] 1.5-30 mg-mcg tablet 1 tablet PO DAILY propranolol 10 mg tablet 10 mg PO DAILY estradiol 0.01 % (0.1 mg/gram) cream 1 applic VAGINAL DAILY ketoconazole 2 % cream 1 applic TOPICAL DAILY buspirone 15 mg tablet 15 mg PO BID guanfacine 2 mg tablet extended release 24 hr 2 mg PO DAILY acetaminophen [Tylenol] 325 mg capsule 650 mg PO Q8H PRN (Reason: pain) Qty: 20 0RF tramadol 50 mg tablet 50 mg PO BID PRN (Reason: pain) Qty: 4 0RF cephalexin 500 mg capsule 500 mg PO BID 7 Days Qty: 14 0RF ondansetron 4 mg tablet,disintegrating 4 mg PO Q8H PRN (Reason: nausea and vomiting) Qty: 20 0RF Follow-up/Referrals: Isidra,Judd Vincent MD [Primary Care Provider] - Stand Alone Forms: Work/School Release IP Time of Disposition: 10:47
== END 2024-11-01 10:52 | disposition home or self-care (01) ==
PROVIDERS: Emergency Provider Emergency Medicine; PCP Family Medicine
DX: K64.8 Other hemorrhoids (principal); E11.9 Type 2 diabetes mellitus without complications; Z79.899 Other long term (current) drug therapy
CPT/HCPCS: 36415; 82272; 85025; 99283

== ENCOUNTER 2024-12-31 16:45 | Emergency (ER) | payer BC, SELFPAY ==
--- NOTE | ~2024-12-31 | CT_ITS ---
EXAMINATION: CT abdomen pelvis w con DATE: 12/31/2024 18:00 INDICATION: abdominal pain TECHNIQUE: Computed tomography (CT) of the abdomen and pelvis was performed with 100 mL Omnipaque-350 intravenous contrast. Automated exposure control and iterative reconstruction technique were employe d. The dose-length product was 482.32 mGy-cm. COMPARISON: 10/08/2024. FINDINGS: Lower thorax: Unremarkable Liver: Peripheral areas of hypodensity in the posterior aspect of the right liver lobe, new since malika or examination. Biliary/Gallbladder: Gallbladder is absent. Mild intrahepatic and extra hepatic bile duct dilation, s table, likely secondary to cholecystectomy. Pancreas: No mass or duct dilation. Spleen: 1.8 cm cyst. Adrenals:No mass. Kidneys: Delayed nephrogram with mild perinephric stranding on the right. Mild right hydronephrosis. The left kidney is normal. GI tract: Status post gastric bypass surgery. Moderate distal esophageal and antral wall edema. No sm all or large bowel dilation. Appendix not confidently visualized. Mesentery/Peritoneum: No ascites, mass, or free air. Retroperitoneum: No mass. Pelvis: Empty urinary bladder. Punctate, 2 mm calcification at the right UVJ. Uterine fibroids. Soft Tissues: Soft tissues and body wall unremarkable. Bones: No acute osseous finding. IMPRESSION: Moderate esophagitis/antral gastritis. 2 mm calcification at the right UVJ, causing mild obstructive uropathy. Presumed focal steatosis in the liver, which could be confirmed with outpatient liver MRI. Reviewed, dictated and finalized at location K. [employer]
[2024-12-31 16:45] VITALS: BP 148/83; PULSE 70; RESP 20; TEMP 36.1; O2SAT 99
--- NOTE | 2024-12-31 17:15 | PC.NURSE ---
PT HAS BEEN TO [facility] THUS FAR IN ED VISIT WITH MINIMAL OUTPUT NOTED, REPORTS IT FEELS LIKE I HAVE TO GO. ONSET WITHIN THE LAST HOUR.
[2024-12-31] MEDS: SODIUM CHLORIDE 0.9% IV 1,000 ML 999 ML IV CONT ×2 (17:16→18:41)
[2024-12-31] MEDS: MORPHINE SULFATE (*CRX) 4 MG/ML INJ IV PUSH (17:16)
[2024-12-31] MEDS: ONDANSETRON INJ 4 MG/2 ML VIAL IV PUSH (17:16)
[2024-12-31 17:22] LABS: Add Urine Microscopic? YES; Appearance Urine Clear (Clear); Bilirubin Urine 1+ (Negative); Blood Urine Trace-intact (Negative); Color Urine Yellow (Yellow); Glucose Urine UA Negative (Negative); Ketones Urine Trace (Negative); Leukocyte Esterase Ur Negative LEU/UL (Negative); Nitrate Urine Negative (Negative); Protein Urine Trace (Negative); Specific Grav Ur >= 1.030 (1.010-1.020); pH Urine 5.5 (5.0-8.0)
[2024-12-31 17:25] LABS: Basophils Absolute Auto 0.08 K/mm3 (0.00-0.10); Basophils Percent Auto 1.1 % (0.0-1.0); Eosinophils Absolute Auto 0.06 K/mm3 (0.02-0.50); Eosinophils Percent Auto 0.8 % (1.0-6.0); Hematocrit 41.4 % (35.0-49.0); Hemoglobin 13.7 g/dL (12.0-15.0); Immature Granulocyte Absolute 0.01 K/mm3 (0.00-0.00); Immature Granulocyte Percent A 0.1 % (0.0-0.0); Lymphocytes Absolute Auto 1.71 K/mm3 (1.10-4.50); Lymphocytes Percent Auto 23.7 % (18.0-42.0); Mean Corpuscular HGB Conc 33.1 g/dL (32-36); Mean Corpuscular Hemoglobin 31.4 pg (27.0-31.0); Mean Corpuscular Volume 94.7 fL (78.0-102.0); Monocytes Absolute Auto 0.35 K/mm3 (0.10-0.90); Monocytes Percent Auto 4.8 % (2.0-11.0); Neutrophils Absolute Auto 5.02 K/mm3 (1.70-7.20); Neutrophils Percent Auto 69.5 % (50.0-70.0); Platelet Count Result 237 K/mm3 (150-420); Red Blood Count 4.37 M/mm3 (4.20-5.40); Red Cell Distribution Width 12.3 % (11.6-14.4); White Blood Count 7.2 K/mm3 (4.8-10.8)
[2024-12-31 17:28] LABS: Bacteria Urine 1+ /hpf; Calcium Oxalate Crystals Urine Present /hpf; RBC Urine 0-2 /hpf (0-2); Squamous Epithelial Cell Urine Moderate /hpf (Few); WBC Urine None seen /hpf (0-3)
[2024-12-31 17:41] LABS: Alanine Aminotransferase 18 U/L (14-59); Albumin Level 3.6 g/dL (3.4-5.0); Alkaline Phosphatase 86 U/L (46-116); Anion Gap 11 mmol/L (4-12); Aspartate Amino Transferase 12 U/L (15-37); Bilirubin,Total 0.6 mg/dL (0.00-1.00); Blood Urea Nitrogen 14 mg/dL (7-18); Calcium 8.7 mg/dL (8.5-10.1); Carbon Dioxide 22 mmol/L (21-32); Chloride 107 mmol/L (98-108); Estimated CRCL calculation 49 ml/min; Estimated Glomerular Filt Rate 54; Glucose 164 mg/dL (70-99); Lipase 28 U/L (16-77); Osmolality Calculated 294 mOsm/kg (285-295); Sodium 140 mmol/L (136-145); Total Protein 6.8 g/dL (6.4-8.2)
[2024-12-31 17:44] LABS: Lactic Acid Reflex 0.9 mmol/L (0.4-2.0)
--- NOTE | 2024-12-31 18:06 | PC.NURSE ---
PT HAS RETURNED FROM CT, MOTHER IS AT BEDSIDE. IVF ARE INFUSING ORDERED WITHOUT DIFFICULTY. PT IS AWAITING RESULTS. SHE REPORTS MINIMAL PAIN RELIEF. ERP NOTIFIED.
--- OUTSIDE RECORDS SUMMARY | 2024-12-31 18:33 | XMS_ITS | Clinical Summary ---
Author Organization [facility] Address [address] [place] [id number] Care Team Providers Care Pile Driving Technician Name Role Phone Unavailable Primary Care Provider Unavailabl e Social History Tobacco Use Types Packs/Day Years Used Date Smoking Tobacco: Never Assessed Comments Unknown Sex and Gender Information Value Date Recorded Sex Assigned at Not on file Legal Sex Female 10:17 PM [employer] Gender Identity Not on file Sexual Orientation Not on file Plan of Treatment Health Maintenance Due Date Last Done Comments Cervical Cancer Screening Pa p Smear (Age 30 to 64) Every 3 Years 1984 Annual Physical 1987 Hepatitis C 2002 DTaP, Tdap and Td Vaccines ( 1 - Tdap) 2003 Hepatitis B Vaccines (1 of 3 - 19+ 3-dose series) 2003 Cervical Cancer Screening Pa p with HPV Testing (Age 30 to 64) Every 5 Years 2014 Cervical Cancer Screening with HPV 2014 COVID-19 Vaccine (2023-2 5 season) 2024 Mammogram Screening 2024 Influenza Adult (#1) 2024 HPV Vaccines Aged Out No longer eligi ble based on patient's age to complete this topic Meningococcal B Vaccine Aged Out No l onger eligible based on patient's age to complete this topic Meningococcal Vaccine Aged Out No ambrocio neena eligible based on patient's age to complete this topic Pneumococcal Vaccine: Pediat rics (0 to 5 Years) and At-Risk Patients (6 to 64 Years) Aged Out No longer eligible b ased on patient's age to complete this topic RSV Immunizations Under 20 Months Aged Out No longer eligible based on patient's age to complete this topic
--- OUTSIDE RECORDS SUMMARY | 2024-12-31 18:33 | XMS_ITS | Encounter Summary ---
Author Organization [facility] [place] Address [address] [place] [id number] Care Team Providers Care Anthropology Faculty Member Name Role Phone Unavailable Primary Care Provider Unavailabl e Encounter Details Date Type Department Care Team (Late st Contact Info) Description 01/28/2018 Abstract [facility] CONVERSION [address] [place] [address] , Generic Conversion, Social History Tobacco Use Types Packs/Day Years Used Date Smoking Tobacco: Never Assessed Comments Unknown Sex and Gender Information Value Date Recorded Sex Assigned at Not on file Legal Sex 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
--- OUTSIDE RECORDS SUMMARY | 2024-12-31 18:34 | XMS_ITS | Data Portability ---
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 B-12) 1,000 mcg/mL injection solution Inject 1 mL every month by subcutane ous route for 30 days. 2023 active Not Available Not Available Not Avai lable omeprazole 20 mg capsule,del ayed release TAKE 1 CAPSULE BY MOUTH EVERY DAY 2023 active Not Available Not Available Not Avai lable scopolamine 1 mg over [address] PATCH BEHIND EAR EVERY THREE DAYS 10/05 completed Not Available Not Available Not Available ondansetron 4 mg disintegrat ing tablet active Not Available Not Available N ot Available buspirone 15 mg tablet Take 1 tablet twice a day by oral route for 90 days. active Not Available Not Available No t Available escitalopra m 20 mg tablet Take 1 tablet every day by oral route for 90 days. active Not Available Not Available No t Available guanfacine ER 1 mg tablet,exte nded release 24 hr Take 2 tablets every day by oral route for 90 days. 2023 active Not Available Not Available Not Avai lable cholecalcif almita (vitamin D3) 100 mcg (4,000 unit) tablet Take 1 tablet every day by oral route. 2024 active Not Available Not Available Not Avai lable Trulicity 1.5 mg/0.5 mL subcutaneou s pen injector Inject 1.5 mg every week by subcutane ous route. active Not Available Not Available No t Available Trulicity 0.75 mg/0.5 mL subcutaneou s pen injector INJECT 0.75MG ONCE WEEKLY 08/30 completed Not Available Not Available Not Available OneTouch Delica Plus Lancet 33 gauge Use to check blood sugar once weekly and NEEDED active Not Available Not Available No t Available Shruti 1.5 mg-30 mcg tablet Take 1 tablet every day by oral route. 2023 active Not Available Not Available Not Avai lable Vitals Date Recorded Heart rate Oxygen saturation Oxygen saturation in Arterial blood by Pulse oximetry Body weight Systolic blood pressure Diastolic blood pressure Provider Name and Address Organization Details Last Updated DateTime 4 74 /min 98 % 98 % 43588.8 9 g 102 mm[Hg] 82 mm[Hg] Aylin Zamarripa [facility] 4 11:44:49 Date Recorded Oxygen saturation Oxygen saturation in Arterial blood by Pulse oximetry Respiratory rate Body temperature Heart rate Systolic blood pressure Diastolic blood pressure Provider Name and Address Organization Details Last Updated DateTime 4 97 % 97 % 20 /min 97.9 [degF] 85 /min 116 mm[Hg] 62 mm[Hg] Jessica palma [facility] 4 17:50:19 Date Recorded Body weight Heart rate Respiratory rate Oxygen saturation Oxygen saturation in Arterial blood by Pulse oximetry Systolic blood pressure Diastolic blood pressure Provider Name and Address Organization Details Last Updated DateTime 4 35686.6 3 g 108 /min 16 /min 98 % 98 % 110 mm[Hg] 74 mm[Hg] Amy Pollock [facility] 4 08:42:12 Date Recorded Body temperature Heart rate Oxygen saturation Oxygen saturation in Arterial blood by Pulse oximetry Systolic blood pressure Diastolic blood pressure Provider Name and Address Organization Details Last Updated DateTime 4 97.7 [degF] 80 /min 97 % 97 % 102 mm[Hg] 68 mm[Hg] Evelia Potter [facility] 4 11:15:21 Social History None recorded. Functional Status None recorded. Mental Status None recorded. Family History Nothing Reported. Medical History No medical history recorded. Gynecological History Statement/Question Response Abnormal Pap N Date of Last Pap Smear 08/03/2022 Age at Menarche 10 Current Control Method BCPs Date of Last Mammogram 08/27/2024 Obstetrics History GPAL:G 0 P 0 0 0 0 Immunizations Vaccine Type Date Status Note Provider Nam e and Address Organization Details Recorded Time MMR 06/26/[address] [facility] 07/24/2024 17:50:25 COVID-19, mRNA, LNP-S, PF, 100 mcg/0.5mL dose or 50 mcg/0.25mL dose 02/24/[address] [facility] 07/24/2024 17:50:25 COVID-19, mRNA, LNP-S, PF, 100 mcg/0.5mL dose or 50 mcg/0.25mL dose 03/24/[address] [facility] 07/24/2024 17:50:25 COVID-19, mRNA, LNP-S, PF, 30 mcg/0.3 mL dose 10/29/[address] [facility] 07/24/2024 17:50:25 Tdap 11/25/[address] [facility] 07/24/2024 17:50:25 Hep B, unspecified formulation 04/20/[address] [facility] 07/24/2024 17:50:25 influenza, split (incl. purified surface antigen) 07/15/[address] [facility] 07/24/2024 17:50:25 Hep B, adult 06/26/[address] [facility] 07/24/2024 17:50:25 Influenza, split virus, quadrivalent, PF 08/22/[address] [facility] 07/24/2024 17:50:25 Past Encounters Encounter ID Performer Location Encounter Start Date Encounter Closed Date Diagnosis/Indication Diagnosis SNOMED-CT Code Diagnosis ICD10 Code Diagnosis Note [id number] Amy Bruner DO [address] [place] [address] [facility]olog ([place]) [address] [place] [address],[address] [place] [address] 05/24/2024 11:30:22 05/24/2024 13:52:59 Near syncope 322751298 R55 Tachycardia 6866368 R00. 0 Palpitations 12810677 R0 0.2 Vasovagal syncope 360610 005 R55 [id number] Judd Waters MD [facility]) [facility] [place] [address] 07/24/2024 17:44:11 07/24/2024 18:14:11 Fatigue 21224328 R53.83 Acute sinusitis 18912661 J01.90 Motion sickness 92788463 T75.3XXD [id number] Judd Waters MD [facility]) [facility] [place] [address] 10/05/2024 08:35:12 10/05/2024 09:28:14 Mixed anxiety and depressive disorder 019757448 F41.8 - Continue with escitalopr am 20 mg daily-Incr ease buspirone from 15 mg daily to 15 mg twice daily-If this is ineffectiv e at improving her anxiety in the next few weeks she will let us know. Iron defic iency anemia 55194412 D50.9 History of bariatric surgical procedure 779171192 Z98.84 Loss of hair 183818079 L 65.9 Gastroesop hageal reflux disease without esophagitis 974700360 K21.9 -Stable, continue with omeprazole daily. Unable to concentrate 60 424655 R41.840 - Increase guanfacine to 2 mg daily. If ineffectiv e she will let us know. [facility] care management 573310494 Z30.9 Tachycardia 4214774 R00. 0 - Stable, continue with propranolo l daily. Headache 74311949 R51.9 - Well-contr olled. Continue with topiramate daily. Type 2 lázaro betes mellitus without complication 802775799 E11.9 Palpitations 31603506 R0 0.2 [id number] Judd Waters MD [address] [place] [address] [place] [address] 10/15/2024 10:45:15 10/15/2024 12:17:19 Cobalamin deficiency 492012010 E53.8 Allergic c ontact urticaria 091224157 L50.6 History of small bowel obstruction 1759094983 32555394 Z87.19 Health Concerns Section Related Observation LastModified by Organization Detai ls LastModified Time None Recorded Concern Status LastModified by Organization Details LastModified Time None Recorded Advance Directives Directive None Recorded Payers Encounter Date Sequence Insurance Name Policy Number Policy Maxwell Covered Member ID Maxwell Member ID Guarantor Name 05/24/2024 1 [facility] (MEDICAID REPLACEMENT - O) [id number] Ashley Whitlock [id number] Ashley Whitlock 07/24/2024 1 [facility] (MEDICAID REPLACEMENT - O) [id number] Ashley Whitlock [id number] Ashley Whitlock 10/05/2024 1 [facility] (MEDICAID REPLACEMENT - O) [id number] Ashley Whitlock [id number] Ashley Whitlock 10/15/2024 1 [facility] (MEDICAID REPLACEMENT - O) [id number] Ashley Whitlock [id number] Ashley Whitlock Notes Date Note Type Note Provider Name and Address Organization Details Recorded Time 07/24/2024 text/html This is a 38-year-old patient comes in with her son. She started having sinus pressure and congestion about 5 days ago. He was positive for COVID several weeks ago. She wanted to be tested today. She has been very fatigued, denies any respiratory distress. She is getting ready to go on a trip and wonders about using scopolamine patches. She does get motion sick. She is going to be going on a 4-day cruise.cbg [place] PA-C [facility], [phone], [facility] 07/30/2024 22:00:45 10/05/2024 text/html Here today for routine check up. Acute Complaints: night sweats, hair falling out, fatigued, hair thin GERD: controlled with famotidine BID. P alpitations -no concerns or complaints. Well-controlled with daily propranolol. H eadaches: Amitriptyline caused brain fog and drowsiness. Now taking topiramate daily (BID dosing caused nightmares). Controlled well with daily dosing. D epression with anxiety: Having some increased anxiety. Depression is well-controlled. In a job that she does not like and is currently looking to switch. Also recently found out her 17-year-old son is going to have a baby with his 16-year-old girlfriend. Currently taking Escitalopram 20 mg daily and BuSpar 1 times daily. Denies suicidal ideation. Has previously tried and failed sertraline, fluoxetine, venlafaxine, wellbutrin, duloxetine. Difficulty concentrating: Currently taking guanfacine 1 mg daily. Initially this worked very well for her. However over the past few months she has been having increasingly difficult time concentrating and is inquiring about new medicine or increasing her dose. O besity: Patient had gastric bypass surgery in January 2021. Working on sticking to her diet. Weight stable at 153, BMI 27. She has lost close to 100lbs. R estless legs: Doing well off routine medications. I nsomnia: Well-controlled off medications currently. Has used trazodone in the past. I humble deficiency anemia - Taking daily multivitamin. Has required iron infusion in past. Would like labs checked. D bita: Pt believes this was diagnosed based on two different blood sugar readings over 200. Has lost a lot of weight since bariatric surgery and being on GLP-1. Surinder Cordova, PHARMACY OPERATIONS COORDINATOR, DOOR WORKER [address] [place] [address], [phone], [place] [facility] 10/07/2024 20:04:14 10/15/2024 text/html She is here toda for a hospital follow-up. She was admitted to [facility] with small bowel obstruction with volvulus and concerns for ischemia. She was flown down there from a local ER and underwent urgent laparoscopy with internal hernia repair and small bowel obstruction release. Did not have to have any small bowel excised. Diet was resumed stepwise and slowly in the hospital. She was given a lot of IV fluids and still has some swelling from this. Appetite is back and is working with her dietary restrictions. Peeing plenty and passing gas and had a bowel movement this morning. Uncomfortable from surgery but has not used her oxycodone in 3 days. Reviewed her blood work from the hospital. She does have some allergic contact urticaria from the iodine they used for surgery prep. pt transferred via helicopter from [facility] to [facility]-admitted 10/09-10/10-dx SOB/ischemic bowel-f/u with Dr. Maravilla 10/18/24-reports she has not been taking home rx d/t unclear hospital instructions-new rx for Oxycodone suspension, OTC gas-x, vitamin D-c/o intermittent newer onset abd spasms rated 4/10-has been passing gas and having BM-tolerating PO intake Judd Waters MD [address] [address], [phone], [place] [facility] 10/17/2024 11:25:49 OBGyn Episode No OBEpisode recorded.
--- OUTSIDE RECORDS SUMMARY | 2024-12-31 18:34 | XMS_ITS | Patient Health Summary ---
Author Organization [facility] Address [address] [place] [address] Care Team Providers Care Business Process Expert Name Role Phone Judd Miner MD Primary Care Provide r Note from [facility] [place] [facility] [place]non-owned Affiliates and Associated Physician Practices is amultiple site organization consisting of ambulatory clinics and hospital sitesin [place], [place], [place] and [place]. This disclosure is being madepursuant to the Care Everywhere program and may not contain all information available regarding this patient. Last updated 18.[facility] Branded Online Allergies * Diflucan(Swelling) * Tuberculin Ppd(Rash) -Medium Criticality * Hydrocodone-Acetaminophen(Urticaria) -Medium Criticality * Sertraline(Vomiting) Medications * Be aware that medications may not be up to date on this document. Alwaysverify current medications with the patient. * escitalopram (LEXAPRO) 20 MG tablet(Started 07/17/2020) 1 (one) tablet once daily * Loratadine 10 MG Take 1 tablet by mouth once daily * propranolol (Inderal) 10 MG tablet(Started 06/21/2022) Take 1 (one) tablet by mouth every morning * busPIRone (Buspar) 15 MG tablet(Started 06/21/2022) Take 1 (one) tablet by mouth 2 times daily * albuterol HFA (Proventil; Ventolin; Proair) 108 (90 Base) MCG/ACT inhaler Inhale 2 puffs by mouth every 6 hours as needed * omeprazole (PriLOSEC) 40 MG capsule(Started 08/27/2022) Omeprazole 40 mg daily PRN. 1 refill by 08/27/2023 * docusate sodium (Colace) 100 MG capsule(Started 10/09/2024) Take 1 (one) capsule by mouth 2 times daily as needed for Constipation (relief of difficult bowel movements) * ondansetron, disintegrating, (Zofran ODT) 4 MG tablet(Started 10/09/2024) Take 1 (one) tablet by mouth every 6 hours as needed for Nausea/Vomiting Allow tablet to dissolve on the tongue * guanFACINE CR 24hr (Intuniv) 2 MG tablet(Started 10/05/2024) Take 1 (one) tablet by mouth once daily * topiramate (Topamax) 25 MG tablet(Started 10/05/2024) Take 1 (one) tablet by mouth once daily * vitamin D, ergocalciferol, (Drisdol) 1.25 MG (77678 UT) capsule(Started 10/10/2024) Take 1 (one) capsule by mouth every 7 days * oxyCODONE (Roxicodone) 5 MG/5ML oral solution(Started 10/10/2024) Take 5 mL by mouth every 4 hours as needed * amitriptyline (Elavil) 10 MG tablet(Started 12/09/2023) TAKE 1 TABLET BY MOUTH NIGHTLY AT BEDTIME * cyanocobalamin (Vitamin B-12) injection(Started 10/15/2024) Inject 1 ML (OR CC) INTRAMUSCULARLY once monthly * dulaglutide (Trulicity) 1.5 MG/0.5ML injection Inject 1.5 mg every week by subcutaneous route. * hydrOXYzine HCl (Atarax) 25 MG tablet(Started 02/03/2023) TAKE 1 TABLET 3 TIMES DAILY NEEDED. 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 diverticulum 01/12/2021 Preop examination Social History Tobacco Use Types Packs/Day Years Used Date Smoking Tobacco: Never Smokeless Tobacco: Never Alcohol Use Standard Drinks/Week Comments Not Currently 0 (1 standard drink = 0.6 oz pur e alcohol) Sex and Gender Information Value Date Recorded Sex Assigned at Not on file Gender Identity Not on file Sexual Orientation Not on file Last Filed Vital Signs Vital Sign Reading Time Taken Comments Blood Pressure 118/76 10/18/2024 12:34 PM [employer]OR [employer] Pulse 94 10/18/2024 12:34 PM [employer] Temperature 36.3 C (97.4 F) 10/18/2024 12:34 PM [employer] Respiratory Rate 16 10/10/2024 4:04 PM [employer] Oxygen Saturation 98% 10/18/2024 12:34 PM [employer] BLOCK [employer] Inhaled Oxygen Concentration - - Weight 68.5 kg (151 lb) 10/18/2024 12:34 PM [employer] Height 157.5 cm (5' 2 ) 10/18/2024 12:34 PM [employer] Body Mass Index 27.62 10/18/2024 12:34 PM [employer] Medical Devices Implanted Type Area Editor Producer Device Identifier Shelf Expiration Date Model / Serial / Lot Seal Tisseel Prima 1 Prefil Frz 10ml - [id number] Implanted:Qty: 1 on 01/12/2021 by Anika Cueto MD at [facility] [employer] 07/14/2022 [id number] / [id number] / [id number] Procedures * GLUCOSE - POINT OF CARE(Performed 10/10/2024) * CBC W AUTO DIFFERENTIAL(Performed 10/10/2024) * GLUCOSE - POINT OF CARE(Performed 10/10/2024) * GLUCOSE - POINT OF CARE(Performed 10/10/2024) * VITAMIN D 25-HYDROXY(Performed 10/10/2024) * CBC W AUTO DIFFERENTIAL(Performed 10/10/2024) * BASIC METABOLIC PANEL (CALCIUM TOTAL)(Performed 10/10/2024) * GLUCOSE - POINT OF CARE(Performed 10/09/2024) * GLUCOSE - POINT OF CARE(Performed 10/09/2024) * FL UGI SERIES(Performed 10/09/2024) Performed for Intestinal obstruction, unspecified cause, unspecified whether partial or complete (HCC) * GLUCOSE - POINT OF CARE(Performed 10/09/2024) * GLUCOSE - POINT OF CARE(Performed 10/09/2024) * [place] LAP,DIAGNOSTIC ABDOMEN(Performed 10/09/2024) * LACTIC ACID BLOOD REFLEX TO REPEAT(Performed 10/09/2024) * COMPREHENSIVE METABOLIC PANEL(Performed 10/09/2024) * CBC W AUTO DIFFERENTIAL(Performed 10/09/2024) * CBC W AUTO DIFFERENTIAL(Performed 08/02/2022) Performed for S/P gastric bypass, Intestinal malabsorption, unspecified type (HCC) * COMPREHENSIVE METABOLIC PANEL(Performed 08/02/2022) Performed for S/P gastric bypass, Intestinal malabsorption, unspecified type (HCC) * FERRITIN(Performed 08/02/2022) Performed for S/P gastric bypass, Intestinal malabsorption, unspecified type (HCC) * IRON + TRANSFERRIN PANEL(Performed 08/02/2022) Performed for S/P gastric bypass, Intestinal malabsorption, unspecified type (HCC) * LIPID PROFILE(Performed 08/02/2022) Performed for S/P gastric bypass, Intestinal malabsorption, unspecified type (HCC) * MAGNESIUM BLOOD(Performed 08/02/2022) Performed for S/P gastric bypass, Intestinal malabsorption, unspecified type (HCC) * VITAMIN D 25-HYDROXY(Performed 08/02/2022) Performed for S/P gastric bypass, Intestinal malabsorption, unspecified type (HCC) * VITAMIN B12 FOLATE PANEL(Performed 08/02/2022) Performed for S/P gastric bypass, Intestinal malabsorption, unspecified type (HCC) * VITAMIN B1(Performed 08/02/2022) Performed for S/P gastric bypass, Intestinal malabsorption, unspecified type (HCC) * PTH INTACT+CALCIUM(Performed 08/02/2022) Performed for S/P gastric bypass, Intestinal malabsorption, unspecified type (HCC) * PHOSPHORUS BLOOD(Performed 08/02/2022) Performed for S/P gastric bypass, Intestinal malabsorption, unspecified type (HCC) * CARDIAC RHYTHM STRIP ORDER(Performed 07/27/2022) * [place] ED EGD FLEX TRANSORAL DX(Performed 07/26/2022) Performed for Abdominal pain, unspecified abdominal location * HCG URINE QUALITATIVE(Performed 07/26/2022) Performed for Preop examination * CARDIAC RHYTHM STRIP ORDER(Performed 01/14/2021) * MAGNESIUM BLOOD(Performed 01/13/2021) * GLUCOSE - POINT OF CARE(Performed 01/13/2021) * GLUCOSE - POINT OF CARE(Performed 01/13/2021) * HEMOGLOBIN A1C(Performed 01/13/2021) Performed for Gastric diverticulum * PHOSPHORUS BLOOD(Performed 01/13/2021) Performed for Gastric diverticulum * MAGNESIUM BLOOD(Performed 01/13/2021) Performed for Gastric diverticulum * COMPREHENSIVE METABOLIC PANEL(Performed 01/13/2021) Performed for Gastric diverticulum * CBC W AUTO DIFFERENTIAL(Performed 01/13/2021) Performed for Gastric diverticulum * GLUCOSE - POINT OF CARE(Performed 01/12/2021) * MAGNESIUM BLOOD(Performed 01/12/2021) Performed for Gastric diverticulum * GLUCOSE - POINT OF CARE(Performed 01/12/2021) * GLUCOSE - POINT OF CARE(Performed 01/12/2021) * PHOSPHORUS BLOOD(Performed 01/12/2021) Performed for Gastric diverticulum * MAGNESIUM BLOOD(Performed 01/12/2021) Performed for Gastric diverticulum * COMPREHENSIVE METABOLIC PANEL(Performed 01/12/2021) Performed for Gastric diverticulum * CBC W AUTO DIFFERENTIAL(Performed 01/12/2021) Performed for Gastric diverticulum * NY LAP SLEEVE GASTRECTOMY(Performed 01/12/2021) Performed for Gastric diverticulum, Gastroesophageal reflux disease, unspecified whether esophagitis present * BLOOD TYPE VERIFICATION(Performed 01/09/2021) * TYPE + SCREEN PANEL(Performed 01/09/2021) Performed for Preop examination * COMPREHENSIVE METABOLIC PANEL(Performed 01/09/2021) Performed for Preop examination * HCG URINE QUALITATIVE(Performed 01/09/2021) * SARS-COV-2 (COVID-19) IN HOUSE(Performed 01/09/2021) Performed for Pre-op exam * SARS-COV-2 (COVID-19) PANEL (SOIL)(Performed 01/09/2021) Performed for Pre-op exam * GROSS + MICRO EXAM (ILL)(Performed 08/13/2020) Performed for Gastroesophageal reflux disease, esophagitis presence not specified * [place] EGD FLEX TRANSORAL W BX SNGL OR MULT(Performed 08/13/2020) Performed for Gastroesophageal reflux disease, esophagitis presence not specified * HCG URINE QUALITATIVE(Performed 08/13/2020) Performed for Preop examination * CARDIAC EKG ORDER(Performed 07/28/2020) * XR CHEST 2VW(Performed 07/24/2020) Performed for Morbid obesity (HCC), Preoperative examination * EKG 12-LEAD(Performed 07/24/2020) Performed for Morbid obesity (HCC) * CBC W AUTO DIFFERENTIAL(Performed 07/24/2020) Performed for Pre-op exam, Morbid obesity (HCC) * TSH(Performed 07/24/2020) Performed for Pre-op exam, Morbid obesity (HCC) * IRON + TRANSFERRIN PANEL(Performed 07/24/2020) Performed for Pre-op exam, Morbid obesity (HCC) * PTH INTACT+CALCIUM(Performed 07/24/2020) Performed for Pre-op exam, Morbid obesity (HCC) * LIPID PROFILE(Performed 07/24/2020) Performed for Pre-op exam, Morbid obesity (HCC) * MAGNESIUM BLOOD(Performed 07/24/2020) Performed for Pre-op exam, Morbid obesity (HCC) * FERRITIN(Performed 07/24/2020) Performed for Pre-op exam, Morbid obesity (HCC) * VITAMIN D 25-HYDROXY(Performed 07/24/2020) Performed for Pre-op exam, Morbid obesity (HCC) * HEMOGLOBIN A1C(Performed 07/24/2020) Performed for Pre-op exam, Morbid obesity (HCC) * VITAMIN B12 FOLATE PANEL(Performed 07/24/2020) Performed for Pre-op exam, Morbid obesity (HCC) * VITAMIN B1(Performed 07/24/2020) Performed for Pre-op exam, Morbid obesity (HCC) * PT PTT PANEL(Performed 07/24/2020) Performed for Pre-op exam, Morbid obesity (HCC) Results * GLUCOSE - POINT OF CARE (10/10/2024 4:34 PM [employer]OR BLOCK [employer]CH[employer]) Only the most recent of12 resultswithin the time period is included. Glucose WB/POC 73 70 - 99 mg/dL 10/10/2024 4:47 PM [employer] BLOCK [employer] [facility] Specimen Type Cap Fingerstick 2023 4:47 PM [employer] [facility] Blood BLOOD SPECIMEN / Unknown 10/10/2024 4:34 PM [employer] 10/10/2024 4:47 PM [employer] Lisette Valdez MD LAB - POINT OF CARE ORDERABLES [facility] [id number] [place] [address] * (ABNORMAL) CBC W AUTO DIFFERENTIAL (10/10/2024 11:53 AM [employer] BLOCK [employer]CH[employer]) Only the most recent of7 resultswithin the time period is included. WBC 5.5 4.0 - 10.7 x10E9/L 10/10/2024 12:24 PM [facility] RBC Count 3.23(L) 3.90 - 5.20 x10E12/L 10/10/2024 12:24 PM [facility] Hemoglobin 10.2(L) 11.9 - 15.8 g/dL 10/10/2024 12:24 PM [facility] Hematocrit 32.0(L) 34.8 - 46.1 % 10/10/2024 12:24 PM [facility] MCV 99.1(H) 80.0 - 98.0 fL 10/10/2024 12:24 PM [facility] MCH 31.6 26.7 - 33.6 pg 10/10/2024 12:24 PM [facility] MCHC 31.9 31.7 - 36.3 g/dL 10/10/2024 12:24 PM [facility] RDW-CV 13.4 11.3 - 14.8 % 10/10/2024 12:24 PM [facility] Platelet Count 182 150 - 420 x10E9/L 10/10/2024 12:24 PM [facility] MPV 10.7 7.8 - 11.4 fL 10/10/2024 12:24 PM [facility] Neutrophil % 36.6(L) 41.0 - 74.0 % 10/10/2024 12:24 PM [facility] Lymphocyte % 55.7(H) 17.0 - 47.0 % 10/10/2024 12:24 PM [facility] Monocyte % 6.4 3.0 - 11.0 % 10/10/2024 12:24 PM [facility] Eosinophil % 0.4 0.0 - 7.0 % 10/10/2024 12:24 PM [facility] Basophil % 0.7 0.0 - 1.6 % 10/10/2024 12:24 PM [facility] Immature Granulocytes % 0.2 0.0 - 1.0 % 10/10/2024 12:24 PM [facility] Neutrophil Absolute 2.01 1.60 - 7.50 x10E9/L 10/10/2024 12:24 PM [employer] [facility] Lymphocyte Absolute 3.06 1.00 - 4.40 x10E9/L 10/10/2024 12:24 PM [employer] [facility] Monocyte Absolute 0.35 0.15 - 1.00 x10E9/L 10/10/2024 12:24 PM [employer] [facility] Eosinophil Absolute 0.02 0.00 - 0.60 x10E9/L 10/10/2024 12:24 PM [employer] [facility] Basophil Absolute 0.04 0.00 - 0.13 x10E9/L 10/10/2024 12:24 PM [employer] [facility] Blood BLOOD SPECIMEN / Unknown Venipuncture / Unknown 10/10/2024 11:53 AM [employer] 10/10/2024 12:18 PM [employer] Shanna Wilson APRN-CAMPAIGN COORDINATOR LAB - HEMATO LOGY ORDERABLES Performing Organization Address [facility] Co de Phone Number [facility] [address] [place] [address] * (ABNORMAL) VITAMIN D 25-HYDROXY (10/10/2024 5:04 AM [employer]CH[employer]) Only the most recent of3 resultswithin the time period is included. Vitamin D, 25 Hydroxy 15.4(L) 30 - 80 ng/mL 10/10/2024 6:18 AM [employer] [facility] Blood BLOOD SPECIMEN / Unknown Venipuncture / Unknown 10/10/2024 5:04 AM [employer] 10/10/2024 5:34 AM [employer] Narrative [facility] - 10/10/2024 6:18 AM [employer] Vitamin D Status: Deficiency <20 ng/mL Insufficiency 20-30 ng/mL Sufficiency 30-100 ng/mL Toxicity >100 ng/mL Ronan Maravilla MD LAB - CHEMISTRY [place]DE [place] Performing Organization Address [facility] Co de Phone Number [facility] [address] [place] [address] * (ABNORMAL) BASIC METABOLIC PANEL (CALCIUM TOTAL) (10/10/2024 5:04 AM [employer]) Glucose 91 70 - 99 mg/dL 10/10/2024 5:58 AM [facility] Sodium 139 136 - 145 mmol/L 10/10/2024 5:58 AM [facility] Potassium 3.7 3.5 - 5.1 mmol/L 10/10/2024 5:58 AM [facility] Chloride 115(H) 98 - 107 mmol/L 10/10/2024 5:58 AM [facility] CO2 20(L) 22 - 29 mmol/L 10/10/2024 5:58 AM [facility] Calcium 8.4 8.4 - 10.4 mg/dL 10/10/2024 5:58 AM [facility] Anion Gap 4(L) 6 - 16 mmol/L 10/10/2024 5:58 AM [facility] BUN 6 5.3 - 18.7 mg/dL 10/10/2024 5:58 AM [facility] Creatinine 0.76 0.57 - 1.11 mg/dL 10/10/2024 5:58 AM [facility] eGFR by CKD-EPI >90 >=90 mL/min/1.7 3 m2 10/10/2024 5:58 AM [facility] Blood BLOOD SPECIMEN / Unknown Venipuncture / Unknown 10/10/2024 5:04 AM [employer] 10/10/2024 5:34 AM [employer] Ronan Maravilla MD LAB - CHEMISTRY [place] [facility] Organization Address City/State/[facility] Co de Phone Number [facility] [address] [place] [address] * FL UGI SERIES WO KUB (10/09/2024 2:47 PM [employer] BLOCK [employer]CH[employer]IC) Anatomical Region Laterality Modality Abdomen Computed Radiogr aphy 10/09/2024 3:29 PM [employer] Impressions 10/09/2024 3:37 PM [employer] IMPRESSION: No postoperative leak or obstruction seen. Mild free air under the diaphragm which is likely within normal limits for the postoperative status. > Interpreting Provider: Arben Mcgowan MD on 10/09/2024 3:37 PM Narrative 10/09/2024 3:37 PM [employer] FL UGI SERIES History: Status post internal hernia reduction with ischemic bowel, history of Aurea-en-Y gastric bypass. K56.609: Unspecified intestinal obstruction, unspecified as to partial versus complete obstruction (HCC). Comparison: None. Technique: Limited fluoroscopic evaluation of the distal esophagus, stomach, and proximal small bowel was performed under fluoroscopy and in multiple projections utilizing 50 mL Isovue-370 per postbariatric surgery protocol. Total fluoroscopy time: 40 seconds FINDINGS: Contrast flowed freely into the gastric pouch and then into the proximal small bowel. 10 minute and 20 minute delayed images were obtained with contrast appearing to extend distal to the jejunojejunal anastomosis. No extraluminal contrast extravasation to suggest postoperative leak. No obstruction. Mild free air under the diaphragm which is likely within normal limits for the postoperative status. Procedure Note Arben Mcgowan MD - 10/09/2024 FL UGI SERIES History: Status post internal hernia reduction with ischemic bowel,history of Aurea-en-Y gastric bypass. K56.609: Unspecified intestinalobstruction, unspecified as to partial versus complete obstruction (HCC). Comparison: None. Technique: Limited fluoroscopic evaluation of the distal esophagus, stomach, and proximal small bowel was performed under fluoroscopy and in multiple projections utilizing 50 mL Isovue-370 per postbariatricsurgery protocol. Total fluoroscopy time: 40 seconds FINDINGS: Contrast flowed freely into the gastric pouch and then into the proximal small bowel. 10 minute and 20 minute delayed images were obtained with contrast appearing to extend distal to the jejunojejunal anastomosis. No extraluminal contrast extravasation to suggest postoperative leak. No obstruction. Mild free air under the diaphragm which is likely within normal limitsfor the postoperative status. IMPRESSION: No postoperative leak or obstruction seen. Mild free air under the diaphragm which is likely within normal limitsfor the postoperative status. > Interpreting Provider: Arben Mcgowan MD on 10/09/2024 3:37 PM Ronan Maravilla MD FLUOROSCOPY ORDERABL ES * LACTIC ACID BLOOD REFLEX TO REPEAT (10/09/2024 1:03 AM [employer] BLOCK [employer]CH[employer]) Lactic Acid 1.1 <=2.0 mmol/L 10/09/2024 1:29 AM [facility] Blood BLOOD SPECIMEN / Unknown Venipuncture / Unknown 10/09/2024 1:03 AM [employer] 10/09/2024 1:14 AM [facility] Judd Monzon MD LAB - CHEMISTRY [place] [facility] Organization Address City/State/ZIP Co de Phone Number [facility] [address] [place] [address] * (ABNORMAL) COMPREHENSIVE METABOLIC PANEL (10/09/2024 1:03 AM [employer] BLOCK [employer]CH[employer]) Only the most recent of5 resultswithin the time period is included. Glucose 110(H) 70 - 99 mg/dL 10/09/2024 1:30 AM [facility] Sodium 140 136 - 145 mmol/L 10/09/2024 1:30 AM [facility] Potassium 3.4(L) 3.5 - 5.1 mmol/L 10/09/2024 1:30 AM [facility] Chloride 118(H) 98 - 107 mmol/L 10/09/2024 1:30 AM [facility] CO2 16(L) 22 - 29 mmol/L 10/09/2024 1:30 AM [facility] Calcium 7.7(L) 8.4 - 10.4 mg/dL 10/09/2024 1:30 AM [facility] Anion Gap 6 6 - 16 mmol/L 10/09/2024 1:30 AM [facility] BUN 10 5.3 - 18.7 mg/dL 10/09/2024 1:30 AM [facility] Creatinine 0.70 0.57 - 1.11 mg/dL 10/09/2024 1:30 AM [facility] Alkaline Phosphatase 55 40 - 150 U/L 10/09/2024 1:30 AM [facility] ALT 11 0 - 55 U/L 10/09/2024 1:30 AM [facility] AST 15 5 - 34 U/L 10/09/2024 1:30 AM [facility] Protein Total 5.8(L) 6.4 - 8.3 gm/dL 10/09/2024 1:30 AM [facility] Albumin 3.2(L) 3.4 - 5.0 gm/dL 10/09/2024 1:30 AM [employer] [facility] Bilirubin Total 0.3 0.2 - 1.2 mg/dL 10/09/2024 1:30 AM [employer] [facility] eGFR by CKD-EPI >90 >=90 mL/min/1.7 3 m2 10/09/2024 1:30 AM [employer] BLOCK [employer] [facility] Blood BLOOD SPECIMEN / Unknown Venipuncture / Unknown 10/09/2024 1:03 AM [employer] BLOCK [employer] 10/09/2024 1:13 AM [employer] Judd Monzon MD LAB - CHEMISTRY [place] [facility] [address] [place], [place] [id number] * PTH INTACT+CALCIUM (08/02/2022 9:58 AM CDT) Only the most recent of2 resultswithin the time period is included. Pathologist [facility] PTH Intact 61 15 - 65 pg/mL 08/05/2022 11:22 AM CDT [facility] [place]) Calcium 9.1 8.6 - 10.0 mg/dL 08/05/2022 11:22 AM CDT [facility] ([facility]) Comment: Performed By: [facility] [address] [place] [address] Caramel Cutter Helper: Dereck Mckeon MD, PhD Blood BLOOD SPECIMEN / Unknown Lab Venipuncture / Unknown 08/02/2022 9:58 AM CDT 08/02/2022 10:29 AM CDT [place] HUMAN SERVICE SPECIALIST-CAMPAIGN COORDINATOR LAB - MEHRAN EZ ORDERABLES [facility] [employer] [place]) [address] * VITAMIN B1 (08/02/2022 9:58 AM CDT) Only the most recent of2 resultswithin the time period is included. [facility] Vitamin B1 Whole Blood 102 70 - 180 nmol/L 08/08/2022 8:34 AM CDT [facility] ([facility]) Comment: INTERPRETIVE INFORMATION: Vitamin B1, Whole Blood This assay measures the concentration of thiamine diphosphate (TDP), the primary active form of vitamin B1. Approximately 90 percent of vitamin B1 present in whole blood is TDP. Thiamine and thiamine monophosphate, which comprise the remaining 10 percent, are not measured. This test was developed and its performance characteristics determined by [facility]. It has not been cleared or approved by the US Food and Drug Administration. This test was performed in a CLIA certified laboratory and is intended for clinical purposes. Performed By: [place] [address] Caramel Cutter Helper: Dereck Mckeon MD, PhD Blood BLOOD SPECIMEN / Unknown Lab Venipuncture / Unknown 08/02/2022 9:58 AM CDT 08/02/2022 10:28 AM CDT [place] [facility] - [place] E[facility] ORDERABLES Performing Organization Address City/[facility]/ZIP Co de Phone Number [facility]) [address] [place] [id number] * PHOSPHORUS BLOOD (08/02/2022 9:58 AM CDT) Only the most recent of3 resultswithin the time period is included. Phosphorus 2.7 2.3 - 4.7 mg/dL 08/02/2022 10:59 [address] [facility] Blood BLOOD SPECIMEN / Unknown Lab Venipuncture / Unknown 08/02/2022 9:58 AM CDT 08/02/2022 10:29 AM CDT [place] [facility] - [place] EZ ORDERABLES [facility] [address] * MAGNESIUM BLOOD (08/02/2022 9:58 AM CDT) Only the most recent of6 resultswithin the time period is included. Magnesium 1.9 1.6 - 2.6 mg/dL 08/02/2022 10:[address] [facility] Blood BLOOD SPECIMEN / Unknown Lab Venipuncture / Unknown 08/02/2022 9:58 AM CDT 08/02/2022 10:29 AM CDT [place] APRN-[facility] LAB - MEHRAN EZ ORDERABLES Performing Organization Address [facility] Co de Phone Number [facility] [address] [place] [address] * (ABNORMAL) VITAMIN B12 FOLATE PANEL (08/02/2022 9:58 AM CDT) Only the most recent of2 resultswithin the time period is included. Vitamin B12 176(L) 213 - 816 pg/mL 08/02/2022 11:[address] [facility] Folate 6.9(L) 7.0 - 31.4 ng/mL 08/02/2022 11:[address] [facility] Blood BLOOD SPECIMEN / Unknown Lab Venipuncture / Unknown 08/02/2022 9:58 AM CDT 08/02/2022 10:29 AM CDT [place] [facility] Performing Organization Address [facility] [facility] Co de Phone Number [facility] [address] [place] [address] * IRON + TRANSFERRIN PANEL (08/02/2022 9:58 AM CDT) Only the most recent of2 resultswithin the time period is included. Iron 101 50 - 170 ug/dL 08/02/2022 11:[address] [facility] Transferrin 339 180 - 382 mg/dL 08/02/2022 11:[address] [facility] TIBC Calculated 424 261 - 497 ug/dL 08/02/2022 11:01 [address] CDT [facility] Iron Saturation % 24 11 - 45 % 08/02/2022 11:01 [address] CD[address] [facility] Blood BLOOD SPECIMEN / Unknown Lab Venipuncture / Unknown 08/02/2022 9:58 AM CDT 08/02/2022 10:29 AM CDT [place] HUMAN SERVICE SPECIALIST-CAMPAIGN COORDINATOR LAB - MEHRAN EZ ORDERABLES Performing Organization Address City/[facility]/ZIP Co de Phone Number [facility] [address] * FERRITIN (08/02/2022 9:58 AM CDT) Only the most recent of2 resultswithin the time period is included. Ferritin 75 5 - 204 ng/mL 08/02/2022 11:31 [address] CDT [facility] Blood BLOOD SPECIMEN / Unknown Lab Venipuncture / Unknown 08/02/2022 9:58 AM CDT 08/02/2022 10:29 AM CDT [place] APRN-CAMPAIGN COORDINATOR LAB - MEHRAN EZ ORDERABLES Performing Organization Address [facility] de Phone Number [facility] [address] [place] [address] * (ABNORMAL) LIPID PROFILE (08/02/2022 9:58 AM CDT) Only the most recent of2 resultswithin the time period is included. Cholesterol 129 <200 mg/dL 08/02/2022 10:59 [address] [facility] Triglycerides 101 <150 mg/dL 08/02/2022 10:59 [address] CDT [facility] HDL Cholesterol 46 >40 mg/dL 2 10:[address] [facility] Chol HDL Ratio 2.8 1.0 - 6.0 08/02/2022 10:[address] [facility] LDL Calculated 63(L) 65 - 130 mg/dL 08/02/2022 10:59 [address] CDT [facility] VLDL Calculated 20 <=30 mg/dL 2 10:[address] [facility] Blood BLOOD SPECIMEN / Unknown Lab Venipuncture / Unknown 08/02/2022 9:58 AM CDT 08/02/2022 10:29 AM CDT Narrative [facility] - 08/02/2022 10:59 AM CDT Lipid Profile Comment: CHOLESTEROL LEVEL..................CLINICAL INTERPRETATION LESS THAN 200 MG/DL..............................DESIRABLE 200-239 MG/DL..............................BORDERLINE HIGH GREATER THAN 240 MG/DL................................HIGH LDL-CHOLESTEROL LEVEL..............CLINICAL INTERPRETATION LESS THAN 100 MG/DL................................OPTIMAL 100-129 MG/DL.................................NEAR OPTIMAL GREATER THAN 160 MG/DL...........................HIGH RISK HDL RISK LEVEL GREATER THEN 60 MG/DL............................DECREASED 40-60 MG/DL........................................AVERAGE LESS THAN 40 MG/DL...............................INCREASED TRIGLYCERIDE LEVEL..................CLINICAL INTERPRETATION LESS THAN 150 MG/DL...............................DESIRABLE 150-199 MG/DL...............................BORDERLINE HIGH 200-499 MG/DL..........................................HIGH GREATER THAN 500..................................VERY HIGH THE NATIONAL CHOLESTEROL EDUCATION PROGRAM HAS SET THE ABOVE GUIDELINES (REFERANCE VALUES) FOR CHOLESTEROL AND HDL. RISK ASSOCIATED WITH CHOLESTEROL/HDL RATIOS RISK....................MALE RATIO.............FEMALE RATIO 1/2 AVERAGE.................<3.4.......................<3.3 LOW RISK.................... 4.0 ...................... 3.8 AVERAGE..................... 5.0 ...................... 4.5 2X AVERAGE.................. 9.5 ...................... 7.0 3X AVERAGE...................>23........................>11 [place] APRN-CAMPAIGN COORDINATOR LAB - MEHRAN EZ ORDERABLES Performing Organization Address City/State/[facility] Co de Phone Number [facility] [address] [place], [place] [id number] [place] [address] * CARDIAC RHYTHM STRIP ORDER (07/27/2022 1:34 PM CDT) Only the most recent of2 resultswithin the time period is included. Narrative 07/27/2022 1:34 PM CDT Ordered by an unspecified provider. Scanned Document CARDIAC SERVICES ORD ERABLES * HCG URINE QUALITATIVE (07/26/2022 9:41 AM CDT) Only the most recent of3 resultswithin the time period is included. hCG Qualitative Urine Negative Negative 07/26/2022 10:[address] [facility] Specific [place] UA 1.025 1.005 - 1.030 07/26/2022 10:[address] [facility] Urine URINE / Unknown Collection / Unknown 07/26/2022 9:41 AM CDT 07/26/2022 9:49 AM CDT Prachi Santana MD LAB - URINALY SIS ORDERABLES Performing Organization Address City/State/[facility] Co de Phone Number [facility] [address] * HEMOGLOBIN A1C (01/13/2021 5:26 AM MOTOR BLOCK MECHANIC) Only the most recent of2 resultswithin the time period is included. Hemoglobin A1c 5.2 4.2 - 5.6 % 01/13/2021 5:49 AM MOTOR BLOCK MECHANIC [facility] Estimated Average Glucose 103 mg/dL 01/13/2021 5:49 AM MOTOR BLOCK MECHANIC [facility] Blood BLOOD SPECIMEN / Unknown Lab Venipuncture / Unknown 01/13/2021 5:26 AM MOTOR BLOCK MECHANIC 01/13/2021 5:31 AM MOTOR BLOCK MECHANIC Narrative [facility] - 01/13/2021 5:49 AM MOTOR BLOCK MECHANIC The following cutoff levels are recommended by [place] [employer]. A1c > 6.5% : considered as diabetes if two separate tests >6.5% or in an appropriate clinical setting. A1c 5.7% - 6.4% : considered as prediabetes (suggest increased risk for diabetes and cardiovascular disease) Control target level: Should be individualized. < 7 for general (non-) , < 8% less stringent goal, < 6.5 more stringent goal. Hemoglobin A1c measurements are used as an aid in the diagnosis of diabetic mellitus, as an aid to identify patients who may be at the risk for developing diabetic mellitus, and for the monitoring long-term blood glucose control in individuals with diabetes mellitus. This test should not replace glucose testing for patients with Type 1 diabetes, pediatric patients, or women. Falsely low HbA1c results may be observed in patients with clinical conditions that shorten erythrocyte life span or decrease mean erythrocyte age such as the presence of unstable hemoglobin variants, elevated hemoglobin F level or other causes of hemolytic anemia . HbA1c may not accurately reflect glycemic control when clinical conditions that affect erythrocyte survival are present. Severe Iron deficiency anemia may yield falsely high results. Hemoglobin A1c assay should not be used to diagnose or monitor diabetes in patients with malignancy, recent blood transfusion, chronic kidney or liver disease. This method may yield falsely low results when hemoglobin (HbF) exceeds 5% in the specimen. Anika Cueto MD LAB - CHEMISTRY ORDERABLES Performing Organization Address City/[facility] Co de Phone Number [facility] [address] [place] [address] * BLOOD TYPE VERIFICATION (01/09/2021 11:19 AM MOTOR BLOCK MECHANIC) ABO Rh O POS 01/09/2021 11:54 AM MOTOR BLOCK MECHANIC [facility] Blood Bank BLOOD SPECIMEN / Unknown Lab Venipuncture / Unknown 01/09/2021 11:19 AM MOTOR BLOCK MECHANIC 01/09/2021 11:22 AM MOTOR BLOCK MECHANIC Keiry López MD LAB - BLOOD BANK ORD ERABLES Performing Organization Address [facility] Co de Phone Number [facility] [address] [place] [address] * TYPE + SCREEN PANEL (01/09/2021 11:17 AM MOTOR BLOCK MECHANIC) ABO Rh O POS 01/09/2021 12:11 PM MOTOR BLOCK MECHANIC [facility] Antibody Screen NEG 12:11 PM MOTOR BLOCK MECHANIC [facility] Blood Bank BLOOD SPECIMEN / Unknown Lab Venipuncture / Unknown 01/09/2021 11:17 AM MOTOR BLOCK MECHANIC 01/09/2021 11:22 AM MOTOR BLOCK MECHANIC Keiry López MD LAB - BLOOD BANK ORD ERABLES Performing Organization Address City/[facility]/ZIP Co de Phone Number [facility] [address] [place] [address] [place] * SARS-COV-2 (COVID-19) IN HOUSE (01/09/2021 10:28 AM MOTOR BLOCK MECHANIC) COVID-19 PCR Not detected Not detected 01/10/2021 3:29 PM MOTOR BLOCK MECHANIC [facility] Microbiology SPECIMEN FROM NASOPHARYNGEAL STRUCTURE / Unknown Collection / Unknown 01/09/2021 10:28 AM MOTOR BLOCK MECHANIC 01/09/2021 11:40 AM MOTOR BLOCK MECHANIC Narrative [facility] - 01/10/2021 3:29 PM MOTOR BLOCK MECHANIC This nucleic acid amplification assay performance was validated by [facility]. This test has been authorized by the Food and Drug administration (FDA)under an Emergency Use Authorization (EUA). This test has been validated in accordance with the FDA's guidance document Policy for Diagnostic Testing in Laboratories Certified to perform High Complexity Testing under CLIA prior to Emergency Use Authorization for Coronavirus Disease-2019 during the Public Health Emergency issued on January 12, 2020. FDA independent review of this validation is pending. This test is only authorized for the duration of time the declaration that circumstances exist justifying the authorization of emergency use of in vitro diagnostic tests for detection of SARS-CoV-2 virus and/or diagnosis of COVID-19 infection under section 564(b)(1) of the Act, 21 U.S.C 360bbb-3 (b)(1), unless the authorization is terminated or revoked sooner. Fact Sheets for this EUA assay are available upon request. Anika Cueto MD LAB - MICROBIOLO GY ORDERABLES [facility] [address] [place] [address], [facility] [phone] * GROSS + MICRO EXAM (ILL) (08/13/2020 1:19 PM CDT) Case Report Surgical Pathology Report Case: [id number] Authorizing Provider: Anika Cueto MD Collected: 08/13/2020 01:19 PM Ordering Location: [facility] Received: 08/14/2020 09:42 AM Pathologist: Javier Molina MD Specimen: Antrum Biopsy, antrum 08/15/2020 11:49 AM [facility] Final Diagnosis A. STOMACH, ANTRUM, BIOPSY: - NO SIGNIFICANT HISTOPATHOLOGIC ABNORMALITY. - NO HELICOBACTER PYLORI ORGANISMS IDENTIFIED (H&E EXAMINATION). HC/ns 08/15/2020 11:49 AM [facility] Microscopic Description and Comment Microscopic examination is performed and substantiates the above diagnosis. 08/15/2020 11:[address] [facility] Clinical History Gastroesophageal reflux disease, esophagitis presence not specified. Per EMR, evidence of sleeve gastrectomy imitated 12 cm proximal to the pylorus with a large amount of retained gastric antrum as well as retained fundus of proximal diverticula. No bile reflux, no hiatal hernia, normal duodenum, normal GE junction, normal esophagus. HC/ns 08/15/2020 11:49 AM [facility] Gross Description Received in formalin labeled Ashley Kamlesh and antrum biopsy are two pink-byrne, soft, irregular tissue fragments measuring 0.2 x 0.2 x 0.2 cm and 0.6 x 0.2 x 0.2 cm, submitted in toto in A1. LS/ns 08/15/2020 11:49 AM [facility] Disclaimer The performance characteristics of all immunohistochemical and indirect immunofluorescence stains (if any) cited in this report were determined by the Histopathology Laboratory of [facility]. Some of these tests were developed by our own laboratory and have not been cleared or approved by the US Food and Drug Administration. The FDA does not require this test to go through premarket FDA review. These tests are used for clinical purposes. They should not be regarded as investigational or for research. This laboratory is certified under the Clinical Laboratory Improvement Amendments (CLIA) as qualified to perform high complexity clinical laboratory testing. H&E slides and special stains prepared at [facility], [place]. [address] (CLIA# [id number]) unless otherwise specified. This case was interpreted by the [facility] Department of Pathology. When applicable, select reference laboratory testing is performed at the [facility], [address] [place] [address]. 08/15/2020 11:49 AM [facility] Embedded Images 08/15/2020 11:[address] [facility] Pathology/Cytology GASTRIC ANTRAL BIOPSY SPECIMEN / Unknown 08/13/2020 1:19 PM CDT 08/14/2020 9:42 AM CDT Comment:Pre-op diagnosis: Gastroesophageal reflux disease, esophagitis presence not specified [K21.9] Anika Cueto MD LAB - PATHOLOGY/ CYTOLOGY ORDERABLES Performing Organization Address City/State/[facility] Co de Phone Number [facility] [address] * CARDIAC EKG ORDER (07/28/2020 12:49 PM CDT) Narrative 07/28/2020 12:49 PM CDT Ordered by an unspecified provider. Scanned Document CARDIAC SERVICES ORD ERABLES * XR CHEST 2 VWS PA AND LAT [id number] (07/24/2020 12:58 PM CDT) Anatomical Region Laterality Modality Chest Radiographic Niru ging 07/24/2020 1:02 PM CDT Impressions 07/24/2020 1:03 PM CDT The chest is within normal limits. Narrative 07/24/2020 1:03 PM CDT PROCEDURE: XR CHEST 2VW 07/24/2020 1:02 PM FINDINGS AND IMPRESSION: HISTORY: Morbid (severe) obesity due to excess calories. COMPARISON: No comparison. FINDINGS: Two views of the chest show no evidence of pulmonary disease. The heart and mediastinum are within normal limits. The diaphragms are smooth and the costophrenic angles are clear. The lungs are radiographically clear. Bony thorax is normal. Procedure Note Lisa Gomez MD - 07/24/2020 PROCEDURE: XR CHEST 2VW 07/24/2020 1:02 PM FINDINGS AND IMPRESSION: HISTORY: Morbid (severe) obesity due to excess calories. COMPARISON: No comparison. FINDINGS: Two views of the chest show no evidence of pulmonary disease. The heart and mediastinum are within normal limits. The diaphragms are smooth and the costophrenic angles are clear. The lungs are radiographically clear. Bony thorax is normal. IMPRESSION The chest is within normal limits. Libby Baca HUMAN SERVICE SPECIALIST-CAMPAIGN COORDINATOR DIAGNOSTIC IMAGI NG ORDERABLES * EKG 12-LEAD (07/24/2020 12:39 PM CDT) Ventricular Rate [address] [facility] Atrial Rate [address] [facility] P-R Interval [address] [facility] QRS Duration ms [address] [facility] Q-T Interval ms [address] [facility] QTC Calculation (Bezet) [address] [facility] Calculated P [place] [address] [facility] Calculated R [place] [address] [facility] Calculated T [place] [address] [facility] Interpretation EKG NORMAL SINUS RHYTHM NORMAL ECG Confirmed by MD KAUSHIK, [facility] ([id number]), editorial assistant CATRACHO LANCE ([id number]) on 07/24/2020 2:15:[address] [facility] 07/24/2020 12:3 9 PM CDT 07/24/2020 2:15 PM CDT Anika Cueto MD ECG ORDERABLES Performing Organization Address City/[facility]/ZIP Co de Phone Number [facility] * (ABNORMAL) PT PTT PANEL (07/24/2020 12:13 PM CDT) Pathologist [facility] PT 13.7 11.3 - 14.8 sec 07/24/2020 1:[address] [facility] INR 1.10(L) 2 - 3 07/24/2020 1:[address] [facility] PTT 32.4 23.0 - 38.4 sec 07/24/2020 1:[address] [facility] Blood BLOOD SPECIMEN / Unknown Lab Venipuncture / Unknown 07/24/2020 12:13 PM CDT 07/24/2020 12:40 PM CDT Laurie Ha MD LAB - COAGULATION OR DERABLES [facility] [address] * TSH (07/24/2020 12:13 PM CDT) Pathologist [facility] TSH 0.817 0.35 - 4.94 uIU/mL 07/24/2020 3:[address] [facility] Blood BLOOD SPECIMEN / Unknown Lab Venipuncture / Unknown 07/24/2020 12:13 PM CDT 07/24/2020 12:41 PM CDT Laurie Ha MD LAB - CHEMISTRY [place]ERIS DE LUNA [facility] [address] Care Teams Business Process Expert Relationship Specialty Start Date End Date Judd Miner MD [address] [place] [address] PCP - General Family Medicine 06/26/20
--- OUTSIDE RECORDS SUMMARY | 2024-12-31 18:34 | XMS_ITS | Referral Summary ---
Author Organization [facility] Address [address] [place] [address] Care Team Providers Care Janitor Cleaner Name Role Phone Judd Miner MD Primary Care Provide r Source Comments [facility],non-owned Affiliates and Associated Physician Practices is amultiple site organization consisting of ambulatory clinics and hospital sitesin [place], [place], [place] and [place]. This disclosure is being madepursuant to the Care Everywhere program and may not contain all information available regarding this patient. Last updated 18.[facility] Encounters Date Type Department Care Team Description 10/18/2024 1:00 PM FURNACE DOOR TENDER Office Visit [facility] Weight Management Services [address] [facility], [facility] [address] [place], [place] [id number] Vanessa Malone, BEAM DYER OPERATOR-PROGRAM RESEARCH SPECIALIST Internal hernia (Primary Dx) 10/17/2024 Telephone [facility] [address] [place] [phone] Anika Cueto MD Appointment 10/09/2024 12:53 AM FURNACE DOOR TENDER - 10/10/2024 5:29 PM FURNACE DOOR TENDER Hospital Encounter [facility] 2S SURG/BARIATRIC [id number] [place] [id number] Judd Monzon MD Buck, MD Courtney Devries Usha R, MD Emergency Medicine Discharge Disposition: Home or Self Care 10/09/2024 1:45 AM FURNACE DOOR TENDER Anesthesia Event [facility] - Perioperative Surgery [address] [place], [place] [id number] Bruno Mobley MD 10/09/2024 1:25 AM FURNACE DOOR TENDER - 10/09/2024 3:11 AM FURNACE DOOR TENDER Surgery [facility] - Perioperative Surgery [address] [place] [address] Ronan Maravilla MD EGD AND LAPAROSCOPY DIAGNOSTIC, REPAIR OF SMALL BOWEL VOLVULUS, INTERNAL HERNIA REPAIR 10/09/2024 Travel from Last 3 Months Allergies Active Allergy Reactions Criticality Noted Date Comments Diflucan Swelling 07/24/2020 Tuberculin Ppd Rash Medium 07/24/2020 Hydrocodone-Acetaminophen Urticaria Medium 07/24/2020 Sertraline Vomiting 07/24/2020 Medications * Be aware that medications may not be up to date on this document. Alwaysverify current medications with the patient. Medication Sig Dispensed Refills Start Date End Date Status escitalopram (LEXAPRO) 20 MG tablet 1 (one) tablet once daily 07/17/2020 Active Loratadine 10 MG Take 1 tablet by mouth once daily Active propranolol (Inderal) 10 MG tablet Take 1 (one) tablet by mouth every morning 06/21/2022 Active busPIRone (Buspar) 15 MG tablet Take 1 (one) tablet by mouth 2 times daily 06/21/2022 Active albuterol HFA (Proventil; Ventolin; Proair) 108 (90 Base) MCG/ACT inhaler Inhale 2 puffs by mouth every 6 hours as needed Active omeprazole (PriLOSEC) 40 MG capsule Omeprazole 40 mg daily PRN. 30 capsule 1 08/27/2022 Active docusate sodium (Colace) 100 MG capsule Take 1 (one) capsule by mouth 2 times daily as needed for Constipation (relief of difficult bowel movements) 10/09/2024 Active Additional Information Patient not taking.Reported on 10/18/2024 ondansetron, disintegrating, (Zofran ODT) 4 MG tablet Take 1 (one) tablet by mouth every 6 hours as needed for Nausea/Vomiting Allow tablet to dissolve on the tongue 30 tablet 10/09/2024 Active Additional Information Patient not taking.Reported on 10/18/2024 guanFACINE CR 24hr (Intuniv) 2 MG tablet Take 1 (one) tablet by mouth once daily 10/05/2024 Active topiramate (Topamax) 25 MG tablet Take 1 (one) tablet by mouth once daily 10/05/2024 Active vitamin D, ergocalciferol, (Drisdol) 1.25 MG (47132 UT) capsule Take 1 (one) capsule by mouth every 7 days 12 capsule 10/10/2024 Active oxyCODONE (Roxicodone) 5 MG/5ML oral solutionIndicatio ns:Intestinal obstruction, unspecified cause, unspecified whether partial or complete (HCC) Take 5 mL by mouth every 4 hours as needed 120 mL 10/10/2024 Active Additional Information Patient not taking.Reported on 10/18/2024 amitriptyline (Elavil) 10 MG tablet TAKE 1 TABLET BY MOUTH NIGHTLY AT BEDTIME 12/09/2023 Active cyanocobalamin (Vitamin B-12) injection Inject 1 ML (OR CC) INTRAMUSCULARLY once monthly 10/15/2024 Active dulaglutide (Trulicity) 1.5 MG/0.5ML injection Inject 1.5 mg every week by subcutaneous route. Active hydrOXYzine HCl (Atarax) 25 MG tablet TAKE 1 TABLET 3 TIMES DAILY NEEDED. 02/03/2023 Active norethindrone-eth inyl estradiol (Shruti 1.5/30) 1.5-30 MG-MCG tablet Take 1 (one) tablet by mouth once daily Active Active Problems Problem Noted Date Diagnosed Date [...] Comments Blood Pressure 118/76 10/18/2024 12:34 PM FURNACE DOOR TENDER Pulse 94 10/18/2024 12:34 PM FURNACE DOOR TENDER Temperature 36.3 C (97.4 F) 10/18/2024 12:34 PM FURNACE DOOR TENDER Respiratory Rate 16 10/10/2024 4:04 PM FURNACE DOOR TENDER Oxygen Saturation 98% 10/18/2024 12:34 PM FURNACE DOOR TENDER Inhaled Oxygen Concentration - - Weight 68.5 kg (151 lb) 10/18/2024 12:34 PM FURNACE DOOR TENDER Height 157.5 cm (5' 2 ) 10/18/2024 12:34 PM FURNACE DOOR TENDER Body Mass Index 27.62 10/18/2024 12:34 PM FURNACE DOOR TENDER Functional Status Functional Status Response Date of Assess ment Is person deaf or have serious hearing difficult y? No 10/09/2024 Is person blind or have serious difficulty seein g? No 10/09/2024 Does person have serious dif ficulty walking/climbing stairs? No 10/09/2024 Does person have difficulty dressing/bathing? No 10/09/2024 Does person have difficulty doing errands alone? No 10/09/2024 Cognitive Status Response Date of Assessm ent Does person have difficulty concentrating/remembering/making decisions? No 10/09/2024 Plan of Treatment Upcoming Encounters Date Type Department Care Team (Late st Contact Info) Description 01/18/2025 11:00 AM FURNACE DOOR TENDER Clinical Support [facility] [address] [place] [address] 01/18/2025 11:30 AM FURNACE DOOR TENDER Office Visit [facility] [address] [place] [address] Libby Baca, BEAM DYER OPERATOR-PROGRAM RESEARCH SPECIALIST [address] [place] [address] Medical Devices Implanted Type Area Environmental Health Safety Engineer Device Identifier Shelf Expiration Date Model / Serial / Lot Seal Tisseel Prima 1 Prefil Frz 10ml - [id number] Implanted:Qty: 1 on 01/12/2021 by Anika Cueto MD at [facility] [employer] 07/14/2022 [id number] / [id number] / [id number] Procedures Procedure Name Priority Date/Time Associated Diagnosis Comments GLUCOSE - POINT OF CARE Routine 10/10/2024 4:34 PM FURNACE DOOR TENDER CBC W AUTO DIFFERENTIAL Timed 10/10/2024 11:53 AM FURNACE DOOR TENDER GLUCOSE - POINT OF CARE Routine 10/10/2024 11:29 AM FURNACE DOOR TENDER GLUCOSE - POINT OF CARE Routine 10/10/2024 7:45 AM FURNACE DOOR TENDER VITAMIN D 25-HYDROXY AM Draw 10/10/2024 5:04 AM FURNACE DOOR TENDER CBC W AUTO DIFFERENTIAL AM Draw 10/10/2024 5:04 AM FURNACE DOOR TENDER BASIC METABOLIC PANEL (CALCIUM TOTAL) AM Draw 10/10/2024 5:04 AM FURNACE DOOR TENDER GLUCOSE - POINT OF CARE Routine 10/09/2024 11:14 PM FURNACE DOOR TENDER GLUCOSE - POINT OF CARE Routine 10/09/2024 4:25 PM FURNACE DOOR TENDER FL UGI SERIES Routine 10/09/2024 2:47 PM FURNACE DOOR TENDER Intestinal obstruction, unspecified cause, unspecified whether partial or complete (HCC) GLUCOSE - POINT OF CARE Routine 10/09/2024 11:20 AM FURNACE DOOR TENDER GLUCOSE - POINT OF CARE Routine 10/09/2024 4:57 AM FURNACE DOOR TENDER MS LAP,DIAGNOSTIC ABDOMEN 10/09/2024 1:35 AM FURNACE DOOR TENDER LACTIC ACID BLOOD REFLEX TO REPEAT STAT 10/09/2024 1:03 AM FURNACE DOOR TENDER COMPREHENSIVE METABOLIC PANEL STAT 10/09/2024 1:03 AM FURNACE DOOR TENDER CBC W AUTO DIFFERENTIAL STAT 10/09/2024 1:03 AM FURNACE DOOR TENDER LIPID PROFILE Routine 08/02/2022 9:58 AM CDT S/P gastric bypass Intestinal malabsorption, unspecified type (HCC) from Last 3 Months or Most Recently Relevant to Health Maintenance Results * GLUCOSE - POINT OF CARE (10/10/2024 4:34 PM FURNACE DOOR TENDER) Only the most recent of7 resultswithin the time period is included. Glucose WB/POC 73 70 - 99 mg/dL 10/10/2024 4:47 PM FURNACE DOOR TENDER [facility] Specimen Type Cap Fingerstick 2023 4:47 PM [facility] Blood BLOOD SPECIMEN / Unknown 10/10/2024 4:34 PM FURNACE DOOR TENDER 10/10/2024 4:47 PM FURNACE DOOR TENDER Lisette Valdez MD LAB - POINT OF CARE ORDERABLES [facility] [address] [place] [address] * (ABNORMAL) CBC W AUTO DIFFERENTIAL (10/10/2024 11:53 AM FURNACE DOOR TENDER) Only the most recent of3 resultswithin the time period is included. [facility] WBC 5.5 4.0 - 10.7 x10E9/L 10/10/2024 12:24 PM [facility] RBC Count 3.23(L) 3.90 - 5.20 x10E12/L 10/10/2024 12:24 PM [facility] Hemoglobin 10.2(L) 11.9 - 15.8 g/dL 10/10/2024 12:24 PM [facility] Hematocrit 32.0(L) 34.8 - 46.1 % 10/10/2024 12:24 PM [facility] MCV 99.1(H) 80.0 - 98.0 fL 10/10/2024 12:24 PM [facility] MCH 31.6 26.7 - 33.6 pg 10/10/2024 12:24 PM [facility] MCHC 31.9 31.7 - 36.3 g/dL 10/10/2024 12:24 PM [facility] RDW-CV 13.4 11.3 - 14.8 % 10/10/2024 12:24 PM [facility] Platelet Count 182 150 - 420 x10E9/L 10/10/2024 12:24 PM [facility] MPV 10.7 7.8 - 11.4 fL 10/10/2024 12:24 PM [facility] Neutrophil % 36.6(L) 41.0 - 74.0 % 10/10/2024 12:24 PM FURNACE DOOR TENDER [facility] Lymphocyte % 55.7(H) 17.0 - 47.0 % 10/10/2024 12:24 PM FURNACE DOOR TENDER [facility] Monocyte % 6.4 3.0 - 11.0 % 10/10/2024 12:24 PM FURNACE DOOR TENDER [facility] Eosinophil % 0.4 0.0 - 7.0 % 10/10/2024 12:24 PM FURNACE DOOR TENDER [facility] Basophil % 0.7 0.0 - 1.6 % 10/10/2024 12:24 PM [facility] Immature Granulocytes % 0.2 0.0 - 1.0 % 10/10/2024 12:24 PM [facility] Neutrophil Absolute 2.01 1.60 - 7.50 x10E9/L 10/10/2024 12:24 PM [facility] Lymphocyte Absolute 3.06 1.00 - 4.40 x10E9/L 10/10/2024 12:24 PM [facility] Monocyte Absolute 0.35 0.15 - 1.00 x10E9/L 10/10/2024 12:24 PM [facility] Eosinophil Absolute 0.02 0.00 - 0.60 x10E9/L 10/10/2024 12:24 PM [facility] Basophil Absolute 0.04 0.00 - 0.13 x10E9/L 10/10/2024 12:24 PM [facility] Blood BLOOD SPECIMEN / Unknown Venipuncture / Unknown 10/10/2024 11:53 AM FURNACE DOOR TENDER 10/10/2024 12:18 PM [facility] Shanna Wilson APRN-PROGRAM RESEARCH SPECIALIST LAB - HEMATO LOGY ORDERABLES [facility] [address] [place] [address] * (ABNORMAL) VITAMIN D 25-HYDROXY (10/10/2024 5:04 AM FURNACE DOOR TENDER) [facility] Vitamin D, 25 Hydroxy 15.4(L) 30 - 80 ng/mL 10/10/2024 6:18 AM [facility] Blood BLOOD SPECIMEN / Unknown Venipuncture / Unknown 10/10/2024 5:04 AM FURNACE DOOR TENDER 10/10/2024 5:34 AM FURNACE DOOR TENDER Narrative [facility] - 10/10/2024 6:18 AM FURNACE DOOR TENDER Vitamin D Status: Deficiency <20 ng/mL Insufficiency 20-30 ng/mL Sufficiency 30-100 ng/mL Toxicity >100 ng/mL Ronan Maravilla MD LAB - CHEMISTRY ORDReshma DE LUNA [facility] [address] [place] [address] * (ABNORMAL) BASIC METABOLIC PANEL (CALCIUM TOTAL) (10/10/2024 5:04 AM FURNACE DOOR TENDER) [facility] Glucose 91 70 - 99 mg/dL 10/10/2024 5:58 AM [facility] Sodium 139 136 - 145 mmol/L 10/10/2024 5:58 AM [facility] Potassium 3.7 3.5 - 5.1 mmol/L 10/10/2024 5:58 AM [facility] Chloride 115(H) 98 - 107 mmol/L 10/10/2024 5:58 AM [facility] CO2 20(L) 22 - 29 mmol/L 10/10/2024 5:58 AM [facility] Calcium 8.4 8.4 - 10.4 mg/dL 10/10/2024 5:58 AM [facility] Anion Gap 4(L) 6 - 16 mmol/L 10/10/2024 5:58 AM [facility] BUN 6 5.3 - 18.7 mg/dL 10/10/2024 5:58 AM [facility] Creatinine 0.76 0.57 - 1.11 mg/dL 10/10/2024 5:58 AM [facility] eGFR by CKD-EPI >90 >=90 mL/min/1.7 3 m2 10/10/2024 5:58 AM [facility] Blood BLOOD SPECIMEN / Unknown Venipuncture / Unknown 10/10/2024 5:04 AM FURNACE DOOR TENDER 10/10/2024 5:34 AM FURNACE DOOR TENDER Ronan Maravilla MD LAB - CHEMISTRY ORDReshma DE LU[place] [facility] [address] [place] [id number] * FL UGI SERIES WO KUB (10/09/2024 2:47 PM FURNACE DOOR TENDER) Anatomical Region Laterality Modality Abdomen Computed Radiogr aphy 10/09/2024 3:29 PM FURNACE DOOR TENDER Impressions 10/09/2024 3:37 PM FURNACE DOOR TENDER IMPRESSION: No postoperative leak or obstruction seen. Mild free air under the diaphragm which is likely within normal limits for the postoperative status. > Interpreting Provider: Arben Mcgowan MD on 10/09/2024 3:37 PM Narrative 10/09/2024 3:37 PM FURNACE DOOR TENDER FL UGI SERIES History: Status post internal [...] BLOOD REFLEX TO REPEAT (10/09/2024 1:03 AM FURNACE DOOR TENDER) Lactic Acid 1.1 <=2.0 mmol/L 10/09/2024 1:29 AM FURNACE DOOR TENDER [facility] Blood BLOOD SPECIMEN / Unknown Venipuncture / Unknown 10/09/2024 1:03 AM FURNACE DOOR TENDER 10/09/2024 1:14 AM FURNACE DOOR TENDER Judd Monzon MD LAB [facility] Organization Address City/State/[facility] Co de Phone Number [facility] [address] [place] [address] * (ABNORMAL) COMPREHENSIVE METABOLIC PANEL (10/09/2024 1:03 AM FURNACE DOOR TENDER) Glucose 110(H) 70 - 99 mg/dL 10/09/2024 1:30 AM [facility] Sodium 140 136 - 145 mmol/L 10/09/2024 1:30 AM [facility] Potassium 3.4(L) 3.5 - 5.1 mmol/L 10/09/2024 1:30 AM [facility] Chloride 118(H) 98 - 107 mmol/L 10/09/2024 1:30 AM [facility] CO2 16(L) 22 - 29 mmol/L 10/09/2024 1:30 AM [facility] Calcium 7.7(L) 8.4 - 10.4 mg/dL 10/09/2024 1:30 AM [facility] Anion Gap 6 6 - 16 mmol/L 10/09/2024 1:30 AM [facility] BUN 10 5.3 - 18.7 mg/dL 10/09/2024 1:30 AM FURNACE DOOR TENDER [facility] Creatinine 0.70 0.57 - 1.11 mg/dL 10/09/2024 1:30 AM FURNACE DOOR TENDER [facility] Alkaline Phosphatase 55 40 - 150 U/L 10/09/2024 1:30 AM FURNACE DOOR TENDER [facility] ALT 11 0 - 55 U/L 10/09/2024 1:30 AM [facility] AST 15 5 - 34 U/L 10/09/2024 1:30 AM FURNACE DOOR TENDER [facility] Protein Total 5.8(L) 6.4 - 8.3 gm/dL 10/09/2024 1:30 AM [facility] Albumin 3.2(L) 3.4 - 5.0 gm/dL 10/09/2024 1:30 AM [facility] Bilirubin Total 0.3 0.2 - 1.2 mg/dL 10/09/2024 1:30 AM [facility] eGFR by CKD-EPI >90 >=90 mL/min/1.7 3 m2 10/09/2024 1:30 AM [facility] Blood BLOOD SPECIMEN / Unknown Venipuncture / Unknown 10/09/2024 1:03 AM FURNACE DOOR TENDER 10/09/2024 1:13 AM [facility] Judd Monzon MD [facility] Organization Address City/State/ZIP Co de Phone Number [facility] [address] [place] [address] * (ABNORMAL) LIPID PROFILE (08/02/2022 9:58 AM CDT) [facility] Cholesterol 129 <200 mg/dL 08/02/2022 10:59 AM CDT [facility] Triglycerides 101 <150 mg/dL 08/02/2022 10:59 AM CDT [facility] HDL Cholesterol 46 >40 mg/dL 2 10:59 AM CDT [facility] Chol HDL Ratio 2.8 1.0 - 6.0 08/02/2022 10:59 AM T [facility] LDL Calculated 63(L) 65 - 130 mg/dL 08/02/2022 10:59 AM T [facility] VLDL Calculated 20 <=30 mg/dL 2 10:59 AM T [facility] Blood BLOOD SPECIMEN / Unknown Lab Venipuncture / Unknown 08/02/2022 9:58 AM CDT 08/02/2022 10:29 AM CDT [facility] - 08/02/2022 10:59 AM CDT Lipid [...] 9.5 ...................... 7.0 3X AVERAGE...................>23........................>[address] [place] BEAM DYER OPERATOR-PROGRAM RESEARCH SPECIALIST LAB - MEHRAN EZ ORDERABLES [facility] [address] [place] [address], [facility] from Last 3 Months or Most Recently Relevant to Health Maintenance Advance Directives * Full Code (Latest Code Status on File) Date Activated Date Inactivated Comments 10/09/2024 1:29 AM 10/10/2024 6:34 PM * Full Code Date Activated Date Inactivated Comments 01/12/2021 12:04 PM 01/13/2021 4:42 PM Care Teams Janitor Cleaner Relationship Specialty Start Date End Date Judd Miner MD [address] [place] [address] PCP - General Family Medicine 06/26/20
--- OUTSIDE RECORDS SUMMARY | 2024-12-31 18:34 | XMS_ITS | Clinical Summary ---
Author Organization [facility] Address [address] [place] [address] Care Team Providers Care Casting Machine Service Operator Name Role Phone Judd Miner MD Primary Care Provide r Source Comments [facility],non-owned Affiliates and Associated Physician Practices is amultiple site organization consisting of ambulatory clinics and hospital sitesin [place], [place], [place] and [place]. This disclosure is being madepursuant to the Care Everywhere program and may not contain all information available regarding this patient. Last updated 18.[facility] Allergies Active Allergy Reactions Criticality Noted Date [...] Active vitamin D, ergocalciferol, (Drisdol) 1.25 MG (67834 UT) capsule Take 1 (one) capsule by [...] NEEDED. 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 01/12/2021 Preop examination Encounters Date Type Department Care Team Description 10/18/2024 1:00 PM [employer]ED [employer] CRAFTER Office Visit [facility] [address], [address] [place] [address] Vanessa Malone APRN-EMERGENCY SPECIALIST Internal hernia (Primary Dx) 10/17/2024 Telephone [facility] [address] [place] [address] Anika Cueto MD Appointment 10/09/2024 1:45 AM [employer]ED [employer] C[employer]TER Anesthesia Event [facility] - Perioperative Surgery [address] [place] [id number] Bruno Mobley MD 10/09/2024 1:25 AM [employer] - 10/09/2024 3:11 AM [employer] C[employer] Surgery [facility] - Perioperative Surgery [address] [place] [id number] Ronan Maravilla MD EGD AND LAPAROSCOPY DIAGNOSTIC, REPAIR OF SMALL BOWEL VOLVULUS, INTERNAL HERNIA REPAIR 10/09/2024 12:53 AM [employer] C[employer] - 10/10/2024 5:29 PM [employer] C[employer] Hospital Encounter [facility] SURG/BARIATRIC [address] [place] [id number] Judd Monzon MD Buck, MD Courtney Devries Usha R, MD Emergency Medicine Discharge Disposition: Home or Self Care 10/09/2024 Travel from Last 3 Months Family History Medical History Relation Name Comments Cancer Father kidney, lymphom a Diabetes; unknown type Father Heart Failure Maternal Grandmother Cancer - Breast Mother Diabetes; unknown type Mother Thyroid Disease Mother Thyroid Disease Sister Relation Name Status Comments Father Maternal Grandmother Mother Sister Social History Tobacco Use Types Packs/Day Years [...] Comments Blood Pressure 118/76 10/18/2024 12:34 PM [employer] Pulse 94 10/18/2024 12:34 PM [employer] C[employer] Temperature 36.3 C (97.4 F) 10/18/2024 12:34 PM [employer] Respiratory Rate 16 10/10/2024 4:04 PM [employer] C[employer] Oxygen Saturation 98% 10/18/2024 12:34 PM [employer] C[employer]TER Inhaled Oxygen Concentration - - Weight 68.5 kg (151 lb) 10/18/2024 12:34 PM [employer] C[employer] Height 157.5 cm (5' 2 ) 10/18/2024 12:34 PM [employer] C[employer] Body Mass Index 27.62 10/18/2024 12:34 PM [employer] C[employer]TER Plan of Treatment Upcoming Encounters Date Type Department Care Team (Late st Contact Info) Description 01/18/2025 11:00 AM [employer]ED GOODS CRAFTER Clinical Support [facility] [address] [place] [address] 01/18/2025 11:30 AM U[employer]ED [employer] CRAFTER Office Visit [facility] [address] [place] [address] Libby Baca, ORE ROASTER-EMERGENCY SPECIALIST [address] [place] [address] Health Maintenance Due Date Last Done Comments MAMMOGRAM 1984 PAP SMEAR 1984 HIV SCREENING 1999 HEPATITIS C SCREENING 07/25/2002 DTAP/TDAP/TD VACCINES (1 - Tdap) 2003 HEPATITIS B VACCINE (1 of 3 - 19+ 3-dose series) 2003 COVID-19 VACCINE ( season) 2024 10/29/2021, 03/24/2021, 02/24/2021 INFLUENZA VACCINE (#1) 2024 07/15/2022, 2020 DEPRESSION SCREENING 11/14/2024 LIPID TESTING 08/02/2027 08/02/2022, 07/24/2020 SCREENING FOR DIABETES 10/10/2027 , 10/10/2024, 10/10/2024, Additional history exists ZOSTER VACCINE (1 of 2) 2034 HIB VACCINE Aged Out No longer eligi ble based on patient's age to complete this topic HPV VACCINE Aged Out No longer eligi ble based on patient's age to complete this topic MENINGOCOCCAL (Group B) VACCINE Aged Out No longer eligible based on patient's age to complete this topic MENINGOCOCCAL VACCINE Aged Out No ambrocio neena eligible based on patient's age to complete this topic PNEUMOCOCCAL VACCINE Aged Out No long er eligible based on patient's age to complete this topic Medical Devices Implanted Type Area Sales Account Associate Device Identifier Shelf Expiration Date Model / Serial / Lot Seal Tisseel Prima 1 Prefil Frz 10ml - [id number] Implanted:Qty: 1 on 01/12/2021 by Anika Cueto MD at [facility] [employer] 07/14/2022 [id number] / [id number] / [id number] Procedures Procedure Name Priority Date/Time Associated Diagnosis Comments GLUCOSE - POINT OF CARE Routine 10/10/2024 4:34 PM [employer] CBC W AUTO DIFFERENTIAL Timed 10/10/2024 11:53 AM [employer] C[employer]TER GLUCOSE - POINT OF CARE Routine 10/10/2024 11:29 AM [employer] C[employer]TER GLUCOSE - POINT OF CARE Routine 10/10/2024 7:45 AM [employer] C[employer]TER VITAMIN D 25-HYDROXY AM Draw 10/10/2024 5:04 AM [employer] CRAFTER CBC W AUTO DIFFERENTIAL AM Draw 10/10/2024 5:04 AM [employer] C[employer]TER BASIC METABOLIC PANEL (CALCIUM TOTAL) AM Draw 10/10/2024 5:04 AM [employer] C[employer]TER GLUCOSE - POINT OF CARE Routine 10/09/2024 11:14 PM [employer] C[employer]TER GLUCOSE - POINT OF CARE Routine 10/09/2024 4:25 PM [employer]ED [employer] CRAFTER FL UGI SERIES Routine 10/09/2024 2:47 PM [employer] CRAFTER Intestinal obstruction, unspecified cause, unspecified whether partial or complete (HCC) GLUCOSE - POINT OF CARE Routine 10/09/2024 11:20 AM [employer]ED [employer] CRAFTER GLUCOSE - POINT OF CARE Routine 10/09/2024 4:57 AM [employer]ED GOODS CRAFTER AK LAP,DIAGNOSTIC ABDOMEN 10/09/2024 1:35 AM [employer]ED [employer] C[employer]TER LACTIC ACID BLOOD REFLEX TO REPEAT STAT 10/09/2024 1:03 AM [employer] C[employer]TER COMPREHENSIVE METABOLIC PANEL STAT 10/09/2024 1:03 AM [employer] CRAFTER CBC W AUTO DIFFERENTIAL STAT 10/09/2024 1:03 AM [employer] C[employer]TER LIPID PROFILE Routine 08/02/2022 9:58 AM CDT S/P gastric bypass Intestinal malabsorption, unspecified type (HCC) from Last 3 Months or Most Recently Relevant to Health Maintenance Results * GLUCOSE - POINT OF CARE (10/10/2024 4:34 PM U[employer] C[employer]TER) Only the most recent of7 resultswithin the time period is included. [facility] Glucose WB/POC 73 70 - 99 mg/dL 10/10/2024 4:47 PM UPH[employer]STERED [employer] CRAFTER [facility] Specimen Type Cap Fingerstick 2023 4:47 PM UPHOL[employer]ED [employer] CRAFTER [facility] Blood BLOOD SPECIMEN / Unknown 10/10/2024 4:34 PM [employer] CRAFTER 10/10/2024 4:47 PM [employer] Lisette Valdez MD LAB - POINT OF CARE ORDERABLES Performing Organization Address City/State/[facility] Co de Phone Number [facility] [address] [place] [address] * (ABNORMAL) CBC W AUTO DIFFERENTIAL (10/10/2024 11:53 AM U[employer] C[employer]) Only the most recent of3 resultswithin the time period is included. [facility] WBC 5.5 4.0 - 10.7 x10E9/L 10/10/2024 12:24 PM UPH[employer]ED [employer] C[employer] [facility] RBC Count 3.23(L) 3.90 - 5.20 x10E12/L 10/10/2024 12:24 PM [employer]ED [employer] CRAFTER [facility] Hemoglobin 10.2(L) 11.9 - 15.8 g/dL 10/10/2024 12:24 PM [facility] Hematocrit 32.0(L) 34.8 - 46.1 % 10/10/2024 12:24 PM [facility] MCV 99.1(H) 80.0 - 98.0 fL 10/10/2024 12:24 PM [facility] MCH 31.6 26.7 - 33.6 pg 10/10/2024 12:24 PM [facility] MCHC 31.9 31.7 - 36.3 g/dL 10/10/2024 12:24 PM [facility] RDW-CV 13.4 11.3 - 14.8 % 10/10/2024 12:24 PM [facility] Platelet Count 182 150 - 420 x10E9/L 10/10/2024 12:24 PM [facility] MPV 10.7 7.8 - 11.4 fL 10/10/2024 12:24 PM [facility] Neutrophil % 36.6(L) 41.0 - 74.0 % 10/10/2024 12:24 PM [facility] Lymphocyte % 55.7(H) 17.0 - 47.0 % 10/10/2024 12:24 PM [facility] Monocyte % 6.4 3.0 - 11.0 % 10/10/2024 12:24 PM [facility] Eosinophil % 0.4 0.0 - 7.0 % 10/10/2024 12:24 PM [facility] Basophil % 0.7 0.0 - 1.6 % 10/10/2024 12:24 PM [facility] Immature Granulocytes % 0.2 0.0 - 1.0 % 10/10/2024 12:24 PM [facility] Neutrophil Absolute 2.01 1.60 - 7.50 x10E9/L 10/10/2024 12:24 PM [facility] Lymphocyte Absolute 3.06 1.00 - 4.40 x10E9/L 10/10/2024 12:24 PM [facility] Monocyte Absolute 0.35 0.15 - 1.00 x10E9/L 10/10/2024 12:24 PM [facility] Eosinophil Absolute 0.02 0.00 - 0.60 x10E9/L 10/10/2024 12:24 PM [employer] [facility] Basophil Absolute 0.04 0.00 - 0.13 x10E9/L 10/10/2024 12:24 PM [employer] C[employer]TER [facility] Blood BLOOD SPECIMEN / Unknown Venipuncture / Unknown 10/10/2024 11:53 AM U[employer]ED [employer] CRAFTER 10/10/2024 12:18 PM [employer] Shanna Wilson APRN-EMERGENCY SPECIALIST LAB - HEMATO LOGY ORDERABLES Performing Organization Address [facility] Co de Phone Number [facility] [address] [place], [place] [id number] * (ABNORMAL) VITAMIN D 25-HYDROXY (10/10/2024 5:04 AM U[employer] CRAFTER) Vitamin D, 25 Hydroxy 15.4(L) 30 - 80 ng/mL 10/10/2024 6:18 AM [facility] Blood BLOOD SPECIMEN / Unknown Venipuncture / Unknown 10/10/2024 5:04 AM [employer] CRAFTER 10/10/2024 5:34 AM UPH[employer]ED [employer] CRAFTER Narrative [facility] - 10/10/2024 6:18 AM [employer] C[employer]TER Vitamin D Status: Deficiency <20 ng/mL Insufficiency 20-30 ng/mL Sufficiency 30-100 ng/mL Toxicity >100 ng/mL Ronan Maravilla MD LAB - CHEMISTRY [place] Performing Organization Address [facility] de Phone Number [facility] [id number] [place] [id number] * (ABNORMAL) BASIC METABOLIC PANEL (CALCIUM TOTAL) (10/10/2024 5:04 AM U[employer] CRAFTER) Glucose 91 70 - 99 mg/dL 10/10/2024 5:58 AM [facility] Sodium 139 136 - 145 mmol/L 10/10/2024 5:58 AM [facility] Potassium 3.7 3.5 - 5.1 mmol/L 10/10/2024 5:58 AM [facility] Chloride 115(H) 98 - 107 mmol/L 10/10/2024 5:58 AM [facility] CO2 20(L) 22 - 29 mmol/L 10/10/2024 5:58 AM [employer] C[employer]TER [facility] Calcium 8.4 8.4 - 10.4 mg/dL 10/10/2024 5:58 AM [facility] Anion Gap 4(L) 6 - 16 mmol/L 10/10/2024 5:58 AM U[employer] C[employer]TER [facility] BUN 6 5.3 - 18.7 mg/dL 10/10/2024 5:58 AM [facility] Creatinine 0.76 0.57 - 1.11 mg/dL 10/10/2024 5:58 AM [employer] C[employer] [facility] eGFR by CKD-EPI >90 >=90 mL/min/1.7 3 m2 10/10/2024 5:58 AM U[employer]ED [employer] CRAFTER [facility] Blood BLOOD SPECIMEN / Unknown Venipuncture / Unknown 10/10/2024 5:04 AM U[employer]ED GOODS CRAFTER 10/10/2024 5:34 AM [employer] C[employer]TER Ronan Maravilla MD LAB - CHEMISTRY [place] [facility] Organization Address City/State/ZIP Co de Phone Number [facility] [address] [place] [address] * FL UGI SERIES WO KUB (10/09/2024 2:47 PM UPH[employer]ED GOODS CRAFTER) Anatomical Region Laterality Modality Abdomen Computed Radiogr aphy 10/09/2024 3:29 PM [employer] CRAFTER Impressions 10/09/2024 3:37 PM [employer] CRAFTER IMPRESSION: No postoperative leak or obstruction seen. Mild free air under the diaphragm which is likely within normal limits for the postoperative status. > Interpreting Provider: Arben Mcgowan MD on 10/09/2024 3:37 PM Narrative 10/09/2024 3:37 PM [employer]ED [employer] CRAFTER FL UGI SERIES History: Status post internal [...] BLOOD REFLEX TO REPEAT (10/09/2024 1:03 AM UPH[employer]ED [employer] CRAFTER) Lactic Acid 1.1 <=2.0 mmol/L 10/09/2024 1:29 AM U[employer]ED [employer] CRAFTER [facility] Blood BLOOD SPECIMEN / Unknown Venipuncture / Unknown 10/09/2024 1:03 AM [employer] CRAFTER 10/09/2024 1:14 AM [employer] Judd Monzon MD LAB - CHEMISTRY [place] [facility] Organization Address City/State/ZIP Co de Phone Number [facility] [address] [place] [address] * (ABNORMAL) COMPREHENSIVE METABOLIC PANEL (10/09/2024 1:03 AM [facility]) [facility] Glucose 110(H) 70 - 99 mg/dL 10/09/2024 1:30 AM [facility] Sodium 140 136 - 145 mmol/L 10/09/2024 1:30 AM [facility] Potassium 3.4(L) 3.5 - 5.1 mmol/L 10/09/2024 1:30 AM [facility] Chloride 118(H) 98 - 107 mmol/L 10/09/2024 1:30 AM [facility] CO2 16(L) 22 - 29 mmol/L 10/09/2024 1:30 AM [facility] Calcium 7.7(L) 8.4 - 10.4 mg/dL 10/09/2024 1:30 AM [facility] Anion Gap 6 6 - 16 mmol/L 10/09/2024 1:30 AM [facility] BUN 10 5.3 - 18.7 mg/dL 10/09/2024 1:30 AM [facility] Creatinine 0.70 0.57 - 1.11 mg/dL 10/09/2024 1:30 AM [facility] Alkaline Phosphatase 55 40 - 150 U/L 10/09/2024 1:30 AM [facility] ALT 11 0 - 55 U/L 10/09/2024 1:30 AM [facility] AST 15 5 - 34 U/L 10/09/2024 1:30 AM [facility] Protein Total 5.8(L) 6.4 - 8.3 gm/dL 10/09/2024 1:30 AM [facility] Albumin 3.2(L) 3.4 - 5.0 gm/dL 10/09/2024 1:30 AM [facility] Bilirubin Total 0.3 0.2 - 1.2 mg/dL 10/09/2024 1:30 AM [facility] eGFR by CKD-EPI >90 >=90 mL/min/1.7 3 m2 10/09/2024 1:30 AM [facility] Blood BLOOD SPECIMEN / Unknown Venipuncture / Unknown 10/09/2024 1:03 AM [employer] 10/09/2024 1:13 AM [employer] Judd Monzon MD LAB - CHEMISTRY [place] [facility] Organization Address City/State/ZIP Co de Phone Number [facility] [address] [place] [address] * (ABNORMAL) LIPID PROFILE (08/02/2022 9:58 AM CDT) Cholesterol 129 <200 mg/dL 08/02/2022 10:[address] [facility] Triglycerides 101 <150 mg/dL 08/02/2022 10:[address] [facility] HDL Cholesterol 46 >40 mg/dL 2 10:[address] [facility] Chol HDL Ratio 2.8 1.0 - 6.0 08/02/2022 10:[address] [facility] LDL Calculated 63(L) 65 - 130 mg/dL 08/02/2022 10:[address] [facility] VLDL Calculated 20 <=30 mg/dL 2 10:[address] [facility] Blood BLOOD SPECIMEN / Unknown Lab Venipuncture / Unknown 08/02/2022 9:58 AM CDT 08/02/2022 10:[address] [facility] - 08/02/2022 10:59 AM CDT Lipid [...] 9.5 ...................... 7.0 3X AVERAGE...................>23........................>[address] [place] ORE ROASTER-EMERGENCY SPECIALIST LAB - [facility] ORDERABLES Performing Organization Address City/State/[facility] Co de Phone Number [facility] [address] from Last 3 Months or Most Recently Relevant to Health Maintenance Advance Directives * Full Code (Latest Code Status on File) Date Activated Date Inactivated Comments 10/09/2024 1:29 AM 10/10/2024 6:34 PM * Full Code Date Activated Date Inactivated Comments 01/12/2021 12:04 PM 01/13/2021 4:42 PM Care Teams Casting Machine Service Operator Relationship Specialty Start Date End Date Judd Miner MD [address] [place] [address] PCP - General Family Medicine 06/26/20
[2024-12-31] MEDS: MORPHINE SULFATE (*CRX) 4 MG/ML INJ IM (18:42)
[2024-12-31 18:45] VITALS: BP 120/85; O2SAT 100
[2024-12-31 19:00] VITALS: BP 125/82; O2SAT 100
--- NOTE | 2024-12-31 19:10 | PC.NURSE ---
patient report received from JUN Conway. patient resting on stretcher in ED 3.
[2024-12-31 19:15] VITALS: BP 102/72; O2SAT 100
--- NOTE | 2024-12-31 19:22 | PC.NURSE ---
pt is lying on stretcher with mother at bedside. pt updated on status, awaiting erp decision. report to JUN Mcgowan. pt's pain has improved, nausea resolved.
--- NOTE | 2024-12-31 19:23 | PC.NURSE ---
Dr. Reyes at patient bedside providing update including results and plan of care.
--- NOTE | 2024-12-31 19:27 | ED_ITS ---
HPI - Abdominal Pain General Chief Complaint: Abdominal Pain Stated Complaint: N-V-D Time Seen by Provider: 12/31/24 16:47 Source: patient Mode of arrival: ambulatory Limitations: no limitations History of Present Illness HPI narrative: Patient is a 39-year-old female with a significant past medical history that presents today for abdominal pain. Patient has a history of a incarcerated hernia that was repaired last September. This was successful. She has not had a problem since then. However now she has had abdominal pain that is generalized. She has also has some nausea vomiting as well. She denies any fevers. MD elicited complaint: abdominal pain Pertinent past history: other ( Incarcerated hernia) Onset (ago): day(s) Pain Consistency: constant Location: diffuse Severity: severe Pain scale (0-10): 8 Quality: stabbing Radiation: none Migration to: no migration Exacerbating factors: eating and vomiting Relieving factors: rest Associated symptoms: nausea and vomiting Related Data Home Medications ?Medication ?Instructions ?Recorded ?Confirmed ?Last Taken ?Type escitalopram oxalate 20 mg tablet 20 mg PO DAILY 07/10/20 11/01/24 02/10/21 History trazodone 50 mg tablet 100 mg PO HS 07/10/20 11/01/24 02/10/21 History ropinirole 1 mg tablet 1 mg PO DAILY 02/11/21 11/01/24 02/10/21 History buspirone 15 mg tablet 15 mg PO BID 10/11/22 11/01/24 Unknown History estradiol 0.01% (0.1 mg/gram) 1 applic vaginal DAILY 10/11/22 11/01/24 Unknown History vaginal cream guanfacine 2 mg tablet,extended 2 mg PO DAILY 10/11/22 11/01/24 Unknown History release 24 hr ketoconazole 2 % topical cream 1 applic topical DAILY 10/11/22 11/01/24 Unknown History norethindrone acetate 1.5 1 tablet PO DAILY 10/11/22 11/01/24 Unknown History mg-ethinyl estradiol 30 mcg tablet (Shruti) propranolol 10 mg tablet 10 mg PO DAILY 10/11/22 11/01/24 Unknown History Allergies Allergy/AdvReac Type Severity Reaction Status Date / Time hydrocodone Allergy Mild Hives Verified 12/31/24 17:10 fluconazole (From Diflucan) Allergy Hives Verified 12/31/24 17:10 sertraline (From Zoloft) Allergy Hives Verified 12/31/24 17:10 tuberculin, purified protein Allergy Hives Verified 12/31/24 17:10 deriva iodine AdvReac Hives Verified 12/31/24 17:10 NSAIDS (Non-Steroidal AdvReac Other Verified 12/31/24 17:10 Anti-Inflamma Review of Systems 2 Review of Systems: All systems reviewed & are unremarkable except as noted in HPI and below Constitutional: Constitutional: Reports as per HPI Eyes: Eyes: Reports no additional eye complaints ENT: Reports system reviewed and no additional complaints, except as documented Cardiovascular: Cardiovascular: Reports no additional cardiovascular complaints Respiratory: Respiratory: Reports no additional respiratory complaints Gastrointestinal: Gastrointestinal: Reports as per HPI, Reports abdominal pain, Reports nausea and Reports vomiting Genitourinary: Genitourinary: Reports no additional female genitourinary complaints Musculoskeletal: Musculoskeletal: Reports no additional musculoskeletal complaints Integumentary/Breasts: Skin/Breast: Reports system reviewed and no additional complaints, except as docu Neurologic: Reports system reviewed and no additional complaints, except as documented Psychiatric: Psychiatric: Reports no additional psychiatric complaints Endocrine: Endocrine: Reports no additional endocrine complaints Hematologic/Lymphatic: Hematologic/Lymphatic: Reports no additional hematologic/lymphatic complaints Allergic/Immunologic: Allergic/Immunologic: Reports no additional allergic/immunologic complaints [facility] Past Medical History Medical History Uterine fibroid Viral syndrome COVID-19 Atypical chest pain Depression Diabetes mellitus Surgical History Surgical History Gastric bypass status for obesity January 12, 2021 Social History Social History Smoking status: Never smoker Substance use: never Living arrangements: with family Gender identity (if verbalized by the patient): Female Exam 2 Const: General: healthy appearing Nutritional Appearance: well nourished Orientation/consciousness: patient oriented x3 HENMT: Head: normal to inspection Ears: external ears normal F hannah/Nose/Sinus: Normal external nose present Face and sinus: normal facial exam Mouth: Yes Normal oral and palatal mucosa present Teeth and gingiva: dentition normal Throat: uvula midline Eyes: Conjunctivae: conjunctivae normal Pupils: Equal, round and reactive pupils present EOM: EOMs intact bilaterally Neck: Neck: normal visual inspection Chest: Chest palpation & inspection: normal inspection of the chest Resp: Effort & Inspection: normal respiratory effort Auscultation: clear to auscultation bilaterally Cardio: Rate: regular rate Rhythm: regular rhythm GI: GI Palp: Yes Tenderness to palpation present (GI) and Yes Guarding due to palpation present (GI) Auscultation: Hyperactive bowel sounds present Back/Spine/Pelvis: Back: no CVA tenderness Skin: General skin exam: normal color Rashes: no rashes Wounds: no wounds Neuro: General: patient oriented x3 Cranial nerves: Yes Nystagmus not present Speech: normal speech Gait exam (Neuro): Normal gait present Extrem: General: normal to inspection Psych: Mental Status: mental status grossly normal Affect: normal affect Attitude: cooperative Course Vital Signs Vital signs: Vital Signs Temperature 97.0 F L 12/31/24 16:45 Pulse Rate 70 12/31/24 16:45 Respiratory Rate 20 12/31/24 16:45 Blood Pressure 148/83 H 12/31/24 16:45 Pulse Oximetry 99 12/31/24 16:45 Oxygen Delivery Room Air 12/31/24 16:45 Temperature 97.0 F L 12/31/24 16:45 Pulse Rate 70 12/31/24 16:45 Respiratory Rate 20 12/31/24 16:45 Blood Pressure 102/72 12/31/24 19:15 Pulse Oximetry 100 12/31/24 19:15 Oxygen Delivery Room Air 12/31/24 16:45 MDM - Abdominal Pain MDM Narrative Medical decision making narrative: patient has generalized abdominal pain that his mostly located in the bottom middle abdomen and she does have also some flank pain on the right side. She had that history incarcerated hernia that had to be repaired and was successfully. This was last September. She is worried that something could be wrong with this. Labs do CT scan abdomen and pelvis without contrast to check if there is anything wrong with hernia repair her anything else going on. We gave her Morphine Zofran and fluids. Differential Diagnosis Differential diagnosis: Likely abdominal pain, calculus of kidney and gastroenteritis Medical Records Attestation: I reviewed the patient's medical records. Lab Data Attestation: I reviewed the patient's lab results. 12/31/24 17:21 12/31/24 17:21 Labs: Lab Results 12/31/24 12/31/24 Range/Units 17:12 17:21 WBC 7.2 (4.8-10.8) K/mm3 RBC 4.37 (4.20-5.40) M/mm3 Hgb 13.7 (12.0-15.0) g/dL Hct 41.4 (35.0-49.0) % MCV 94.7 (78.0-102.0) fL MCH 31.4 H (27.0-31.0) pg MCHC 33.1 (32-36) g/dL RDW 12.3 (11.6-14.4) % Plt Count 237 (150-420) K/mm3 MPV 10.0 (9.2-11.8) fl Immature Gran % (Auto) 0.1 H (0.0-0.0) % Neut % (Auto) 69.5 (50.0-70.0) % Lymph % (Auto) 23.7 (18.0-42.0) % [place] % (Auto) 4.8 (2.0-11.0) % Eos % (Auto) 0.8 L (1.0-6.0) % Baso % (Auto) 1.1 H (0.0-1.0) % Lymph # (Auto) 1.71 (1.10-4.50) K/mm3 [place] # (Auto) 0.35 (0.10-0.90) K/mm3 Eos # (Auto) 0.06 (0.02-0.50) K/mm3 Baso # (Auto) 0.08 (0.00-0.10) K/mm3 Abs Immat Gran (auto) 0.01 H (0.00-0.00) K/mm3 Absolute Neuts (auto) 5.02 (1.70-7.20) K/mm3 Absolute Nucleated RBC 0.00 (0.00-0.00) K/mm3 Nucleated RBC % 0.0 (0-0.0) % Sodium 140 (136-145) mmol/L Potassium 4.0 (3.5-5.1) mmol/L Chloride 107 (98-108) mmol/L Carbon Dioxide 22 (21-32) mmol/L Anion Gap 11 (4-12) mmol/L BUN 14 (7-18) mg/dL Creatinine 1.12 H (0.55-1.02) mg/dL Estim Creat Clear Calc 49 ml/min Estimated GFR 54 L (59 - ) Glucose 164 H (70-99) mg/dL Calculated Osmolality 294 (285-295) mOsm/kg Lactic Acid 0.9 (0.4-2.0) mmol/L Calcium 8.7 (8.5-10.1) mg/dL Total Bilirubin 0.6 (0.00-1.00) mg/dL AST 12 L (15-37) U/L ALT 18 (14-59) U/L Alkaline Phosphatase 86 (46-116) U/L Total Protein 6.8 (6.4-8.2) g/dL Albumin 3.6 (3.4-5.0) g/dL Lipase 28 (16-77) U/L Urine Color Yellow (Yellow) Urine Appearance Clear (Clear) Urine pH 5.5 (5.0-8.0) Ur Specific [place] >= 1.030 H (1.010-1.020) Urine Protein Trace H (Negative) Urine Glucose (UA) Negative (Negative) Urine Ketones Trace H (Negative) Ur Blood (Man) Trace-intact H (Negative) Urine Nitrate Negative (Negative) Urine Bilirubin 1+ H (Negative) Urine Urobilinogen 1.0 (0.2-1.0) mg/dL Leukocyte Esterase Rfl Negative (Negative) ERIK/UL Urine RBC 0-2 (0-2) /hpf Urine WBC None seen (0-3) /hpf Ur Squamous Epith Cells Moderate H (Few) /hpf Calcium Oxalate Crystal Present H (None) /hpf Urine Bacteria 1+ H (None) /hpf Imaging Data Attestation: I personally reviewed and interpreted this imaging study as follows: Radiologist's impression: ITS Impressions Abdomen/Pelvis CT 12/31/24 18:26 IMPRESSION: Moderate esophagitis/antral gastritis. 2 mm calcification at the right UVJ, causing mild obstructive uropathy. Presumed focal steatosis in the liver, which could be confirmed with outpatient liver MRI. Discharge Plan Discharge Clinical Impression: Gastroenteritis, Acute antritis, Kidney stone Patient Disposition: Home, Self-Care Condition: Stable Instructions: Kidney Stones (ED), Gastroenteritis (ED) Patient Language: Emirati Prescriptions: New ketorolac 10 mg tablet 10 mg PO TID PRN (Reason: pain) 3 Days Qty: 9 0RF metronidazole [Flagyl] 375 mg capsule 375 mg PO TID Qty: 30 0RF ciprofloxacin HCl 500 mg tablet 500 mg PO Q12H Qty: 20 0RF No Action trazodone 50 mg tablet 100 mg PO HS escitalopram oxalate 20 mg tablet 20 mg PO DAILY ropinirole 1 mg tablet 1 mg PO DAILY norethindrone ac-eth estradiol [Shruti] 1.5-30 mg-mcg tablet 1 tablet PO DAILY propranolol 10 mg tablet 10 mg PO DAILY estradiol 0.01 % (0.1 mg/gram) cream 1 applic VAGINAL DAILY ketoconazole 2 % cream 1 applic TOPICAL DAILY buspirone 15 mg tablet 15 mg PO BID guanfacine 2 mg tablet extended release 24 hr 2 mg PO DAILY acetaminophen [Tylenol] 325 mg capsule 650 mg PO Q8H PRN (Reason: pain) Qty: 20 0RF tramadol 50 mg tablet 50 mg PO BID PRN (Reason: pain) Qty: 4 0RF cephalexin 500 mg capsule 500 mg PO BID 7 Days Qty: 14 0RF ondansetron 4 mg tablet,disintegrating 4 mg PO Q8H PRN (Reason: nausea and vomiting) Qty: 20 0RF hydrocortisone acetate [Anusol-HC] 25 mg suppository 25 mg RECTAL DAILY 7 Days Qty: 12 0RF Follow-up/Referrals: Isidra,Judd Vincent MD [Primary Care Provider] - Time of Disposition: 19:41
[2024-12-31 19:30] VITALS: BP 111/76
[2024-12-31 19:45] VITALS: BP 113/73; PULSE 82; RESP 18; TEMP 36.9; O2SAT 98
== END 2024-12-31 19:56 | disposition home or self-care (01) ==
PROVIDERS: Emergency Provider Family Medicine; PCP Family Medicine
DX: K52.9 Noninfective gastroenteritis and colitis, unspecified (principal); K29.00 Acute gastritis without bleeding; N20.0 Calculus of kidney
CPT/HCPCS: 36415; 74177; 80053; 81001; 83605; 83690; 85025; 96361; 96372; 96374; 96375; 99284; J2270; J2405; J7030; Q9967